=== PATIENT | male | born 1980 | race Two or more races ===

== ENCOUNTER 2016-12-30 19:33 | Inpatient (IN) | payer OTHER ==
[2016-12-30 20:23] VITALS: BMI 24.3
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
[2016-12-30] MEDS ORDERED: MENTHOL/PHENOL 1 EACH UD MM PRN (20:49)
[2016-12-30] MEDS ORDERED: LOPERAMIDE HCL 2 MG CAPSULE PO PRN (20:49)
[2016-12-30] MEDS ORDERED: guaiFENesin/D-METHORPHAN HB 10 ML UNIT-DOSE CUPS PO PRN (20:49)
[2016-12-30] MEDS ORDERED: diazePAM 5 MG TABLET PO ONE (20:49)
[2016-12-30] MEDS ORDERED: P-EPHED 60MG/TRIPROLIDI 2.5MG TABLET PO PRN (20:49)
[2016-12-30] MEDS ORDERED: IBUPROFEN 400 MG TABLET (FP) PO PRN (20:49)
[2016-12-30] MEDS ORDERED: MAG HYDROX/AL HYDROX/SIMETH 30 ML UNIT-DOSE CUP PO PRN (20:49)
[2016-12-30] MEDS ORDERED: hydrOXYzine PAMOATE 25 MG CAPSULE (FP) PO PRN (20:49)
[2016-12-30] MEDS ORDERED: NICOTINE POLACRILEX 2 MG GUM BUC PRN (20:49)
[2016-12-30] MEDS ORDERED: MAGNESIUM HYDROX 2400MG/30ML ORAL SUSPENSION 30 ML CUP PO PRN (20:49)
[2016-12-30] MEDS ORDERED: MAGNESIUM CITRATE 300 ML BOTTLE PO PRN (20:49)
[2016-12-30] MEDS ORDERED: ACETAMINOPHEN 325 MG TABLET (FP) PO PRN (20:49)
[2016-12-30] MEDS ORDERED: ALBUTEROL SO4 2.5/IPRATROPIUM 0.5 INH SOL 3 ML VIAL.NEB. NEB PRN (21:12)
[2016-12-30] MEDS: THIAMINE HCL 100 MG TABLET (FP) PO SCH (22:48)
[2016-12-30] MEDS: diazePAM 5 MG TABLET PO SCH (22:56)
[2016-12-30 23:10] LABS: URINE APPEARANCE SLCLOUDY; URINE BILIRUBIN NEGATIVE (NEGATIVE); URINE BLOOD NEGATIVE (NEGATIVE); URINE COLOR YELLOW; URINE GLUCOSE (UA) NEGATIVE (NEGATIVE); URINE KETONE TRACE (NEGATIVE); URINE NITRITE NEGATIVE (NEGATIVE); URINE PROTEIN NEGATIVE (NEGATIVE)
[2016-12-31] MEDS: diazePAM 5 MG TABLET PO SCH ×3 (05:39→22:11)
[2016-12-31] MEDS ORDERED: METHADONE HCL 10 MG TABLET PO SCH (10:00)
[2016-12-31] MEDS ORDERED: FLU VACCINE QUAD 60 MCG/0.5 ML (MDV 17-18) IM ONE (10:15)
[2016-12-31] MEDS: NICOTINE 14 MG/24 HOURS TOPICAL PATCH TD SCH (10:24)
[2016-12-31] MEDS: PRENATAL VITAMINS W/ FOLIC ACID TABLET (FP) PO SCH (10:24)
[2016-12-31 10:46] LABS: URINE LEUK ESTERASE Negative (NEGATIVE)
[2016-12-31 11:13] LABS: MCH 28.3 pg (25.7-33.7); MCHC 32.8 g/dl (32.0-35.9); MEAN CELL VOLUME 86.3 fl (80-96); MEAN PLT VOLUME 8.1 fl (7.5-11.1); PLATELET COUNT 264 K/MM3 (134-434); RDW 12.8 % (11.9-15.9); WHITE BLOOD COUNT 6.9 K/mm3 (4.0-10.0)
[2016-12-31 11:30] LABS: ALBUMIN 3.5 g/dl (3.4-5.0); ANION GAP 11 (8-16); CALCIUM 8.3 mg/dL (8.5-10.1); CO2 28 mmol/L (21-32); CREATININE 1.1 mg/dL (0.7-1.3); GLUCOSE,RANDOM 103 mg/dL (74-106); SGOT/AST 18 U/L (15-37); SGPT/ALT 26 U/L (12-78)
[2016-12-31 11:32] LABS: ALK PHOS 74 U/L (45-117); BILIRUBIN,TOTAL 0.5 mg/dL (0.2-1.0); TOT PROT 6.3 g/dl (6.4-8.2)
[2016-12-31] MEDS: diazePAM 5 MG TABLET PO PRN (12:40)
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
--- NOTE | 2016-12-31 16:01 | PN ---
S CIWA - CIWA Score Nausea/Vomitin Muscle Tremors: 4-Moderate,w/Arms Extend Anxiety: 4-Mod. Anxious/Guarded Agitation: 4-Moderately Restless Paroxysmal Sweats: 3 Orientation: 0-Oriented Tacttile Disturbances: 1-Very Mild Itch/Numbness Auditory Disturbances: 0-None Visual Disturbances: 0-None Headache: 1-Very Mild CIWA-Ar Total Score: 20 BHS Progress Note (SOAP) Subjective: Sweating, chills, tremor, interrupted sleep, anxious Objective: 12/31/16 15:58 Last Vital Signs Temp Pulse Resp BP Pulse Ox 97.9 F 63 18 126/72 12/31/16 14:02 12/31/16 14:02 12/31/16 14:02 12/31/16 14:02 Laboratory Tests 12/30/16 12/31/16 12/31/16 21:54 07:20 07:20 WBC 6.9 RBC 5.11 Hgb 14.5 Hct 44.1 MCV 86.3 MCH 28.3 MCHC 32.8 RDW 12.8 Plt Count 264 MPV 8.1 Sodium 144 Potassium 4.1 Chloride 105 Carbon Dioxide 28 Anion Gap 11 BUN 12 D Creatinine 1.1 Creat Clearance w eGFR > 60 Random Glucose 103 Calcium 8.3 L Total Bilirubin 0.5 D AST 18 ALT 26 Alkaline Phosphatase 74 Total Protein 6.3 L Albumin 3.5 Urine Color Yellow Urine Appearance Slcloudy Urine pH 6.0 Ur Specific [place] 1.028 Urine Protein Negative Urine Glucose (UA) Negative Urine Ketones Trace H Urine Blood Negative Urine Nitrite Negative Urine Bilirubin Negative Urine Urobilinogen 2.0 Ur Leukocyte Esterase Negative RPR Titer 12/31/16 07:20 WBC RBC Hgb Hct MCV MCH MCHC RDW Plt Count MPV Sodium Potassium Chloride Carbon Dioxide Anion Gap BUN Creatinine Creat Clearance w eGFR Random Glucose Calcium Total Bilirubin AST ALT Alkaline Phosphatase Total Protein Albumin Urine Color Urine Appearance Urine pH Ur Specific [place] Urine Protein Urine Glucose (UA) Urine Ketones Urine Blood Urine Nitrite Urine Bilirubin Urine Urobilinogen Ur Leukocyte Esterase RPR Titer Nonreactive Labs noted Assessment: 12/31/16 16:00 Withdrawal symptoms Plan: Continue detox Encouraged to drink lots of water
[2016-12-31] MEDS: THIAMINE HCL 100 MG TABLET (FP) PO SCH (22:11)
[2017-01-01] MEDS ORDERED: METHADONE HCL 10 MG TABLET ONE (04:09)
[2017-01-01] MEDS ORDERED: METHADONE HCL 40 MG DISPERSABLE TABLET ONE (04:10)
[2017-01-01] MEDS: diazePAM 5 MG TABLET PO PRN (05:31)
[2017-01-01] MEDS: METHADONE 40 MG, METHADONE 20 MG PO SCH (05:31)
[2017-01-01] MEDS: PRENATAL VITAMINS W/ FOLIC ACID TABLET (FP) PO SCH (10:20)
[2017-01-01] MEDS: diazePAM 5 MG TABLET PO SCH ×2 (10:20→22:14)
[2017-01-01] MEDS: NICOTINE 14 MG/24 HOURS TOPICAL PATCH TD SCH (10:21)
--- NOTE | 2017-01-01 11:09 | PN ---
[facility] CIWA - CIWA Score Nausea/Vomitin-No Nausea/No Vomiting Muscle Tremors: 4-Moderate,w/Arms Extend Anxiety: 4-Mod. Anxious/Guarded Agitation: 3 Paroxysmal Sweats: 1-Minimal Palms Moist Orientation: 0-Oriented Tacttile Disturbances: 3-Moderate Itch/Numb/Burn Auditory Disturbances: 0-None Visual Disturbances: 0-None Headache: 0-None Present CIWA-Ar Total Score: 15 BHS Progress Note (SOAP) Subjective: ANXIETY,SWEATS,FATIGUE. Objective: 01/01/17 11:08 Vital Signs Temperature 97.6 F 01/01/17 09:25 Pulse Rate 63 01/01/17 09:25 Respiratory Rate 18 01/01/17 09:25 Blood Pressure 109/75 01/01/17 09:25 O2 Sat by Pulse Oximetry (%) Laboratory Last Values WBC 6.9 K/mm3 (4.0-10.0) 12/31/16 07:20 RBC 5.11 M/mm3 (4.00-5.60) 12/31/16 07:20 Hgb 14.5 GM/dL (11.7-16.9) 12/31/16 07:20 Hct 44.1 % (35.4-49) 12/31/16 07:20 MCV 86.3 fl (80-96) 12/31/16 07:20 MCH 28.3 pg (25.7-33.7) 12/31/16 07:20 MCHC 32.8 g/dl (32.0-35.9) 12/31/16 07:20 RDW 12.8 % (11.9-15.9) 12/31/16 07:20 Plt Count 264 K/MM3 (134-434) 12/31/16 07:20 MPV 8.1 fl (7.5-11.1) 12/31/16 07:20 Sodium 144 mmol/L (136-145) 12/31/16 07:20 Potassium 4.1 mmol/L (3.5-5.1) 12/31/16 07:20 Chloride 105 mmol/L (98-107) 12/31/16 07:20 Carbon Dioxide 28 mmol/L (21-32) 12/31/16 07:20 Anion Gap 11 (8-16) 12/31/16 07:20 BUN 12 mg/dL (7-18) D 12/31/16 07:20 Creatinine 1.1 mg/dL (0.7-1.3) 12/31/16 07:20 Creat Clearance w eGFR > 60 (>60) 12/31/16 07:20 Random Glucose 103 mg/dL (74-106) 12/31/16 07:20 Calcium 8.3 mg/dL (8.5-10.1) L 12/31/16 07:20 Total Bilirubin 0.5 mg/dL (0.2-1.0) D 12/31/16 07:20 AST 18 U/L (15-37) 12/31/16 07:20 ALT 26 U/L (12-78) 12/31/16 07:20 Alkaline Phosphatase 74 U/L (45-117) 12/31/16 07:20 Total Protein 6.3 g/dl (6.4-8.2) L 12/31/16 07:20 Albumin 3.5 g/dl (3.4-5.0) 12/31/16 07:20 Urine Color Yellow 12/30/16 21:54 Urine Appearance Slcloudy 12/30/16 21:54 Urine pH 6.0 (5.0-8.0) 12/30/16 21:54 Ur Specific [place] 1.028 (1.001-1.035) 12/30/16 21:54 Urine Protein Negative (NEGATIVE) 12/30/16 21:54 Urine Glucose (UA) Negative (NEGATIVE) 12/30/16 21:54 Urine Ketones Trace (NEGATIVE) H 12/30/16 21:54 Urine Blood Negative (NEGATIVE) 12/30/16 21:54 Urine Nitrite Negative (NEGATIVE) 12/30/16 21:54 Urine Bilirubin Negative (NEGATIVE) 12/30/16 21:54 Urine Urobilinogen 2.0 mg/dL (0.2-1.0) 12/30/16 21:54 Ur Leukocyte Esterase Negative (NEGATIVE) 12/30/16 21:54 RPR Titer Nonreactive (NONREACTIVE) 12/31/16 07:20 Assessment: 01/01/17 11:08 WITHDRAWAL SX Plan: CONTINUE DETOX
[2017-01-01 11:20] LABS: HIV 1 & 2 AB NEGATIVE; HIV 1 AGp24 NEGATIVE
[2017-01-01] MEDS: THIAMINE HCL 100 MG TABLET (FP) PO SCH (22:14)
[2017-01-02] MEDS ORDERED: METHADONE HCL 10 MG TABLET ONE (04:00)
[2017-01-02] MEDS ORDERED: METHADONE HCL 40 MG DISPERSABLE TABLET ONE (04:01)
[2017-01-02] MEDS: METHADONE 40 MG, METHADONE 20 MG PO SCH (05:41)
[2017-01-02] MEDS: diazePAM 5 MG TABLET PO PRN (05:41)
--- NOTE | 2017-01-02 07:43 | EKG ---
Test Reason : Blood Pressure : / mmHG Vent. Rate : 056 BPM Atrial Rate : 056 BPM P-R Int : 162 ms QRS Dur : 096 ms QT Int : 420 ms P-R-T Axes : 051 -52 049 degrees QTc Int : 405 ms SINUS BRADYCARDIA LEFT ANTERIOR FASCICULAR BLOCK SEPTAL INFARCT (CITED ON OR BEFORE 30-DEC-2016) ABNORMAL ECG WHEN COMPARED WITH ECG OF 30-DEC-2016 21:43, NO SIGNIFICANT CHANGE WAS FOUND Confirmed by JIM ENCINAS MD ([id number]) on 01/02/2017 7:43:22 AM Referred By: Confirmed By:JIM ENCINAS MD
[2017-01-02 09:31] VITALS: BP 115/77; PULSE 53; TEMP 96.5
[2017-01-02] MEDS: diazePAM 5 MG TABLET PO SCH (10:04)
[2017-01-02] MEDS: PRENATAL VITAMINS W/ FOLIC ACID TABLET (FP) PO SCH (10:04)
[2017-01-02] MEDS: NICOTINE 14 MG/24 HOURS TOPICAL PATCH TD SCH (10:04)
--- NOTE | 2017-01-02 11:12 | DS ---
[facility] Detox Discharge Summary Admission Date: 12/30/16 Discharge Date: 01/02/17 - History Present History: Alcohol Dependence, Cannabis Dependence, Cocaine Dependence, MMTP Additional Comments: Patient wishes to return to MMTP, advised of risks of not completing detox as ordered. Nursing informed patient is to sign out AMA, medically stable at this time, no suicidal ideation Pertinent Past History: anxiety, depression, insomnia - Physical Exam Results Vital Signs: Vital Signs Temperature 96.5 F L 01/02/17 09:30 Pulse Rate 53 L 01/02/17 09:30 Respiratory Rate 18 01/02/17 09:30 Blood Pressure 115/77 01/02/17 09:30 O2 Sat by Pulse Oximetry (%) Laboratory Tests 12/30/16 12/31/16 12/31/16 21:54 06:00 07:20 WBC 6.9 RBC 5.11 Hgb 14.5 Hct 44.1 MCV 86.3 MCH 28.3 MCHC 32.8 RDW 12.8 Plt Count 264 MPV 8.1 Sodium Potassium Chloride Carbon Dioxide Anion Gap BUN Creatinine Creat Clearance w eGFR Random Glucose Calcium Total Bilirubin AST ALT Alkaline Phosphatase Total Protein Albumin Urine Color Yellow Urine Appearance Slcloudy Urine pH 6.0 Ur Specific [place] 1.028 Urine Protein Negative Urine Glucose (UA) Negative Urine Ketones Trace H Urine Blood Negative Urine Nitrite Negative Urine Bilirubin Negative Urine Urobilinogen 2.0 Ur Leukocyte Esterase Negative RPR Titer HIV 1&2 Antibody Screen Negative HIV P24 Antigen Negative 12/31/16 12/31/16 07:20 07:20 WBC RBC Hgb Hct MCV MCH MCHC RDW Plt Count MPV Sodium 144 Potassium 4.1 Chloride 105 Carbon Dioxide 28 Anion Gap 11 BUN 12 D Creatinine 1.1 Creat Clearance w eGFR > 60 Random Glucose 103 Calcium 8.3 L Total Bilirubin 0.5 D AST 18 ALT 26 Alkaline Phosphatase 74 Total Protein 6.3 L Albumin 3.5 Urine Color Urine Appearance Urine pH Ur Specific [place] Urine Protein Urine Glucose (UA) Urine Ketones Urine Blood Urine Nitrite Urine Bilirubin Urine Urobilinogen Ur Leukocyte Esterase RPR Titer Nonreactive HIV 1&2 Antibody Screen HIV P24 Antigen Pertinent Admission Physical Exam Findings: withdrawal sx - Treatment Hospital Course: Detox Protocol Followed Patient has Accepted a Rehab Referral to: no, will return to MMTP - Medication Discharge Medications: Ambulatory Orders Albuterol Sulfate Inhaler - [Ventolin HFA Inhaler -] 2 inh PO Q6H #1 inhaler 04/13 Methadone [Dolophine -] 60 mg PO DAILY@0600 tablet MDD 60mg 01/02/17 - Diagnosis (1) Alcohol dependence with uncomplicated withdrawal Current Visit: Yes Status: Acute (2) Cannabis dependence Current Visit: Yes Status: Acute (3) Cocaine dependence Current Visit: Yes Status: Acute Qualifiers: Substance use status: uncomplicated Qualified Code(s): F14.20 - Cocaine dependence, uncomplicated; F14.20 - Cocaine dependence, uncomplicated; F14.20 - Cocaine dependence, uncomplicated (4) Opioid dependence on agonist therapy Current Visit: Yes Status: Acute (5) Asthma Current Visit: Yes Status: Chronic (6) Alcohol-induced mood disorder Current Visit: No Status: Acute - AMA Did Patient Leave Against Medical Advice: Yes
[2017-01-03] MEDS ORDERED: diazePAM 5 MG TABLET PO SCH (10:00)
== END 2017-01-02 11:25 | disposition left against medical advice (07) | DRG 770 ==
LOC: YASAS 19:33 → Y3N 21:00
PROVIDERS: ADMIT Internal Medicine; ATTEND Internal Medicine
PROC: HZ2ZZZZ Detoxification Services for Substance Abuse Treatment (ICD-10-PCS; principal; 2016-12-30)
DX: F11.20 Opioid dependence, uncomplicated (principal); F10.230 Alcohol dependence with withdrawal, uncomplicated; F10.24 Alcohol dependence with alcohol-induced mood disorder; F14.20 Cocaine dependence, uncomplicated; F12.20 Cannabis dependence, uncomplicated; F17.213 Nicotine dependence, cigarettes, with withdrawal; J45.909 Unspecified asthma, uncomplicated; Z91.5 Personal history of self-harm
CPT/HCPCS: 36415; 80053; 81003; 85027; 86593; 87389; 90688; 93005; 93010; G0008

== ENCOUNTER 2017-01-24 08:17 | Inpatient (IN) | payer OTHER ==
[2017-01-24 10:51] VITALS: BMI 23.1
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
[2017-01-24] MEDS ORDERED: NICOTINE POLACRILEX 2 MG GUM BC PRN (12:49)
[2017-01-24] MEDS ORDERED: LOPERAMIDE HCL 2 MG CAPSULE PO PRN (12:49)
[2017-01-24] MEDS ORDERED: MAGNESIUM HYDROX 2400MG/30ML ORAL SUSPENSION 30 ML CUP PO PRN (12:49)
[2017-01-24] MEDS ORDERED: hydrOXYzine PAMOATE 50 MG CAPSULE (FP) PO PRN (12:49)
[2017-01-24] MEDS ORDERED: IBUPROFEN 400 MG TABLET (FP) PO PRN (12:49)
[2017-01-24] MEDS ORDERED: P-EPHED 60MG/TRIPROLIDI 2.5MG TABLET PO PRN (12:49)
[2017-01-24] MEDS ORDERED: guaiFENesin/D-METHORPHAN HB 10 ML UNIT-DOSE CUPS PO PRN (12:49)
[2017-01-24] MEDS ORDERED: MENTHOL/PHENOL 1 EACH UD MM PRN (12:49)
[2017-01-24] MEDS ORDERED: MAGNESIUM CITRATE 300 ML BOTTLE PO PRN (12:49)
[2017-01-24] MEDS ORDERED: MAG HYDROX/AL HYDROX/SIMETH 30 ML UNIT-DOSE CUP PO PRN (12:49)
[2017-01-24] MEDS ORDERED: ACETAMINOPHEN 325 MG TABLET (FP) PO PRN (12:49)
[2017-01-24] MEDS ORDERED: diazePAM 5 MG TABLET PO ONE (13:30)
[2017-01-24] MEDS: diazePAM 5 MG TABLET PO PRN ×2 (15:24→22:09)
[2017-01-24] MEDS: NICOTINE 14 MG/24 HOURS TOPICAL PATCH TD SCH (15:24)
[2017-01-24] MEDS: diazePAM 5 MG TABLET PO SCH ×2 (15:25→22:09)
--- NOTE | 2017-01-24 17:09 | PN ---
S Progress Note Note: Pt. approached at bedside for psychiatric consultation. Pt. refused to be seen at this time.
[2017-01-24] MEDS: THIAMINE HCL 100 MG TABLET (FP) PO SCH (22:09)
[2017-01-24 22:35] LABS: MCH 29.3 pg (25.7-33.7); MCHC 33.8 g/dl (32.0-35.9); MEAN CELL VOLUME 86.8 fl (80-96); MEAN PLT VOLUME 8.4 fl (7.5-11.1); PLATELET COUNT 280 K/MM3 (134-434); RDW 12.8 % (11.9-15.9); WHITE BLOOD COUNT 7.3 K/mm3 (4.0-10.0)
[2017-01-24 22:40] LABS: ALBUMIN 3.7 g/dl (3.4-5.0); ANION GAP 7 (8-16); CALCIUM 8.9 mg/dL (8.5-10.1); CO2 29 mmol/L (21-32); GLUCOSE,RANDOM 85 mg/dL (74-106); SGOT/AST 15 U/L (15-37); SGPT/ALT 27 U/L (12-78)
[2017-01-24 22:42] LABS: ALK PHOS 65 U/L (45-117); BILIRUBIN,TOTAL 0.8 mg/dL (0.2-1.0); CREATININE 1.1 mg/dL (0.7-1.3); TOT PROT 6.8 g/dl (6.4-8.2)
[2017-01-24 23:00] LABS: URINE APPEARANCE CLEAR; URINE BILIRUBIN NEGATIVE (NEGATIVE); URINE BLOOD NEGATIVE (NEGATIVE); URINE COLOR YELLOW; URINE GLUCOSE (UA) NEGATIVE (NEGATIVE); URINE KETONE TRACE (NEGATIVE); URINE NITRITE NEGATIVE (NEGATIVE); URINE PROTEIN NEGATIVE (NEGATIVE)
[2017-01-25] MEDS ORDERED: METHADONE HCL 40 MG DISPERSABLE TABLET ONE (05:24)
[2017-01-25] MEDS ORDERED: METHADONE HCL 10 MG TABLET ONE (05:25)
[2017-01-25] MEDS ORDERED: METHADONE HCL 40 MG DISPERSABLE TABLET PO SCH (06:00)
[2017-01-25] MEDS: diazePAM 5 MG TABLET PO SCH ×3 (06:02→22:43)
[2017-01-25] MEDS: METHADONE 40 MG, METHADONE 20 MG PO SCH (06:02)
--- NOTE | 2017-01-25 07:42 | CONSULT ---
[facility] Psychiatric Consult - Data Date of interview: 01/25/17 Admission source: [facility] Identifying data: This is 36 years old male with psychiatric hospitalization history iontoxicatewd with: Alcohol, Cannabis, K2, Crack, Nicotine,, Opioids Substance Abuse History: - Smoking Cessation. Smoking history: Current every day smoker. Have you smoked in the past 12 months: Yes. Aproximately how many cigarettes per day: 10. Cigars Per Day: 0. Hx Chewing Tobacco Use: No. Initiated information on smoking cessation: Yes. 'Breaking Loose' booklet given : 01/24/17. - Substance & Tx. History. Hx Alcohol Use: Yes (COGNAC/TONYA/BEER ). Hx Substance Use: Yes (K2/MARIJUANA/CRACK/HEROIN). Substance Use Type: Alcohol, Cocaine, Heroin, Marijuana. Hx Substance Use Treatment: Yes (LAST TX AT [facility]). - Substances Abused. Crack. Route: Smoking. Frequency: Daily. Amount used: $50. Age of first use: 22. Date of Last Use: 01/23/17. Heroin. Route: Inhalation. Frequency: Daily. Amount used: 2 bags. Age of first use: 31. Date of Last Use: 01/23/17. Alcohol-cognac/tonya/beer. Route: Oral. Frequency: Daily. Amount used: 2 pts./2-6 pks. Age of first use : 13. Date of Last Use: 01/23/17. K2. Route: Smoking. Frequency: 3-6 times per week. Amount used: $10. Age of first use: 33. Date of Last Use: . Marijuana. Route: Smoking. Frequency: 3-6 times per week. Amount used: $10. Age of first use: 17. Date of Last Use: 01/23/17 Medical History: Asthma, MMTP 60mg per day Psychiatric History: Patient reports anxiety and insomnia, reports taking prior to admission: Benadryl 50mg po qhs Physical/Sexual Abuse/Trauma History: Denies Additional Comment: Benadryl 50mg po qhs Mental Status Exam - Mental Status Exam Alert and Oriented to: Person Cognitive Function: Fair Patient Appearance: Unkempt Mood: Sad Affect: Mood Congruent Patient Behavior: Cooperative Speech Pattern: Appropriate Voice Loudness: Mildly Soft/Quiet Thought Process: Circumstantial Thought Disorder: Being Controlled Hallucinations: Denies Suicidal Ideation: Denies Homicidal Ideation: Denies Insight/Judgement: Fair Sleep: Difficulty falling asleep Appetite: Weight loss Muscle strength/Tone: Mild Hypotonicity Gait/Station: Shuffling Additional Comments: Benadryl 50mg po qhs Psychiatric Findings - Problem List ([place] 1, 2,3) (1) Alcohol dependence with uncomplicated withdrawal Current Visit: Yes Status: Acute (2) Cannabis dependence Current Visit: Yes Status: Acute Comment: USES K2 AND MARIJUANA (3) Cocaine dependence Current Visit: Yes Status: Acute Qualifiers: Substance use status: uncomplicated Qualified Code(s): F14.20 - Cocaine dependence, uncomplicated (4) Drug withdrawal seizure Current Visit: Yes Status: Acute Qualifiers: Complication of substance-induced condition: with unspecified complication Qualified Code(s): F19.239 - Other psychoactive substance dependence with withdrawal, unspecified; R56.9 - Unspecified convulsions; R56.9 - Unspecified convulsions; R56.9 - Unspecified convulsions; R56.9 - Unspecified convulsions Comment: HX OF DRUG-RELATED SEIZURES. (5) Nicotine dependence Current Visit: Yes Status: Acute Qualifiers: Nicotine product type: cigarettes Substance use status: in withdrawal Qualified Code(s): F17.213 - Nicotine dependence, cigarettes, with withdrawal (6) Methadone maintenance therapy patient Current Visit: Yes Status: Chronic (7) Weight decreased Current Visit: No Status: Active (8) Alcohol-induced mood disorder Current Visit: No Status: Acute (9) Opioid dependence on agonist therapy Current Visit: No Status: Acute (10) Opioid dependence with withdrawal Current Visit: No Status: Acute (11) Anxiety and depression Current Visit: No Status: Chronic (12) Drug-induced mood disorder Current Visit: No Status: Chronic (13) Substance-induced sleep disorder Current Visit: No Status: Chronic - Initial Treatment Plan Initial Treatment Plan: Benadryl 50mg po qhs
[2017-01-25] MEDS ORDERED: diphenhydrAMINE HCL 25 MG CAPSULE (FP) PO PRN (08:17)
[2017-01-25] MEDS ORDERED: IBUPROFEN 600 MG TABLET (FP) PO PRN (09:18)
[2017-01-25] MEDS: PRENATAL VITAMINS W/ FOLIC ACID TABLET (FP) PO SCH (10:00)
[2017-01-25] MEDS ORDERED: diphenhydrAMINE HCL 50 MG CAPSULE PO SCH (10:00)
[2017-01-25] MEDS: NICOTINE 14 MG/24 HOURS TOPICAL PATCH TD SCH (10:00)
--- NOTE | 2017-01-25 11:30 | PN ---
S CIWA - CIWA Score Nausea/Vomitin-No Nausea/No Vomiting Muscle Tremors: 4-Moderate,w/Arms Extend Anxiety: 3 Agitation: 3 Paroxysmal Sweats: 3 Orientation: 0-Oriented Tacttile Disturbances: 0-None Auditory Disturbances: 0-None Visual Disturbances: 0-None Headache: 0-None Present CIWA-Ar Total Score: 13 BHS Progress Note (SOAP) Subjective: interrupted sleep agitation anxiety sweats irritable Objective: 01/25/17 11:29 Vital Signs Temperature 98.4 F 01/25/17 09:21 Pulse Rate 67 01/25/17 09:21 Respiratory Rate 18 01/25/17 09:21 Blood Pressure 142/69 01/25/17 09:21 O2 Sat by Pulse Oximetry (%) Laboratory Tests 01/24/17 01/24/17 01/24/17 13:20 13:20 13:20 WBC 7.3 RBC 4.65 Hgb 13.7 Hct 40.4 MCV 86.8 MCH 29.3 MCHC 33.8 RDW 12.8 Plt Count 280 MPV 8.4 Sodium 139 Potassium 4.3 Chloride 103 Carbon Dioxide 29 Anion Gap 7 L BUN 14 Creatinine 1.1 Creat Clearance w eGFR > 60 Random Glucose 85 Calcium 8.9 Total Bilirubin 0.8 D AST 15 ALT 27 Alkaline Phosphatase 65 Total Protein 6.8 Albumin 3.7 Urine Color Urine Appearance Urine pH Ur Specific [place] Urine Protein Urine Glucose (UA) Urine Ketones Urine Blood Urine Nitrite Urine Bilirubin Urine Urobilinogen RPR Titer Nonreactive 01/24/17 15:50 WBC RBC Hgb Hct MCV MCH MCHC RDW Plt Count MPV Sodium Potassium Chloride Carbon Dioxide Anion Gap BUN Creatinine Creat Clearance w eGFR Random Glucose Calcium Total Bilirubin AST ALT Alkaline Phosphatase Total Protein Albumin Urine Color Yellow Urine Appearance Clear Urine pH 6.0 Ur Specific [place] 1.027 Urine Protein Negative Urine Glucose (UA) Negative Urine Ketones Trace H Urine Blood Negative Urine Nitrite Negative Urine Bilirubin Negative Urine Urobilinogen 2.0 RPR Titer [id number] ambulating no acute distress Assessment: 01/25/17 11:30 withdrawal sx Plan: continue detox increase fluids
[2017-01-25 11:37] LABS: URINE LEUK ESTERASE Negative (NEGATIVE)
--- NOTE | 2017-01-25 13:09 | EKG ---
Test Reason : Blood Pressure : / mmHG Vent. Rate : 054 BPM Atrial Rate : 054 BPM P-R Int : 156 ms QRS Dur : 098 ms QT Int : 448 ms P-R-T Axes : -04 -50 035 degrees QTc Int : 424 ms SINUS BRADYCARDIA LEFT ANTERIOR FASCICULAR BLOCK ABNORMAL ECG WHEN COMPARED WITH ECG OF 30-DEC-2016 21:44, NO SIGNIFICANT CHANGE WAS FOUND Confirmed by BELINDA ROBLES, EUGENIA ([id number]) on 01/25/2017 1:08:55 PM Referred By: ARETHA RAIN Confirmed By:EUGENIA TREVINO MD
[2017-01-25] MEDS ORDERED: diphenhydrAMINE HCL 25 MG CAPSULE (FP) PO ONE (21:44)
[2017-01-25] MEDS: THIAMINE HCL 100 MG TABLET (FP) PO SCH (22:43)
[2017-01-25] MEDS: diphenhydrAMINE HCL 50 MG CAPSULE PO SCH (22:43)
[2017-01-26] MEDS ORDERED: METHADONE HCL 40 MG DISPERSABLE TABLET ONE (04:00)
[2017-01-26] MEDS ORDERED: METHADONE HCL 10 MG TABLET ONE (04:00)
[2017-01-26] MEDS: METHADONE 40 MG, METHADONE 20 MG PO SCH (05:52)
--- NOTE | 2017-01-26 09:49 | PN ---
S CIWA - CIWA Score Nausea/Vomitin-No Nausea/No Vomiting Muscle Tremors: 3 Anxiety: 4-Mod. Anxious/Guarded Agitation: 3 Paroxysmal Sweats: 3 Orientation: 0-Oriented Tacttile Disturbances: 0-None Auditory Disturbances: 0-None Visual Disturbances: 0-None Headache: 0-None Present CIWA-Ar Total Score: 13 BHS Progress Note (SOAP) Subjective: Sweating,interrupted sleep,restless,tremors,anxiety. Objective: 01/26/17 09:48 Vital Signs - 8 hr 01/26/17 01/26/17 03:30 06:26 Temperature 97.5 F L Pulse Rate 50 L Respiratory 18 16 Rate Blood Pressure 101/56 Laboratory Tests 01/24/17 01/24/17 01/24/17 13:20 13:20 13:20 WBC 7.3 RBC 4.65 Hgb 13.7 Hct 40.4 MCV 86.8 MCH 29.3 MCHC 33.8 RDW 12.8 Plt Count 280 MPV 8.4 Sodium 139 Potassium 4.3 Chloride 103 Carbon Dioxide 29 Anion Gap 7 L BUN 14 Creatinine 1.1 Creat Clearance w eGFR > 60 Random Glucose 85 Calcium 8.9 Total Bilirubin 0.8 D AST 15 ALT 27 Alkaline Phosphatase 65 Total Protein 6.8 Albumin 3.7 Urine Color Urine Appearance Urine pH Ur Specific [place] Urine Protein Urine Glucose (UA) Urine Ketones Urine Blood Urine Nitrite Urine Bilirubin Urine Urobilinogen Ur Leukocyte Esterase RPR Titer Nonreactive 01/24/17 15:50 WBC RBC Hgb Hct MCV MCH MCHC RDW Plt Count MPV Sodium Potassium Chloride Carbon Dioxide Anion Gap BUN Creatinine Creat Clearance w eGFR Random Glucose Calcium Total Bilirubin AST ALT Alkaline Phosphatase Total Protein Albumin Urine Color Yellow Urine Appearance Clear Urine pH 6.0 Ur Specific [place] 1.027 Urine Protein Negative Urine Glucose (UA) Negative Urine Ketones Trace H Urine Blood Negative Urine Nitrite Negative Urine Bilirubin Negative Urine Urobilinogen 2.0 Ur Leukocyte Esterase Negative RPR Titer labs noted Assessment: 01/26/17 09:49 Withdrawal sx. Plan: Continue detox
[2017-01-26] MEDS: diazePAM 5 MG TABLET PO SCH ×2 (10:15→22:20)
[2017-01-26] MEDS: PRENATAL VITAMINS W/ FOLIC ACID TABLET (FP) PO SCH (10:15)
[2017-01-26] MEDS: NICOTINE 14 MG/24 HOURS TOPICAL PATCH TD SCH (10:16)
[2017-01-26] MEDS ORDERED: ALBUTEROL SO4 18 GM HFA INHALER IH PRN (19:06)
[2017-01-26] MEDS: THIAMINE HCL 100 MG TABLET (FP) PO SCH (22:20)
[2017-01-26] MEDS: diphenhydrAMINE HCL 50 MG CAPSULE PO SCH (22:22)
[2017-01-27] MEDS ORDERED: METHADONE HCL 10 MG TABLET ONE (04:14)
[2017-01-27] MEDS ORDERED: METHADONE HCL 40 MG DISPERSABLE TABLET ONE (04:14)
[2017-01-27] MEDS: METHADONE 40 MG, METHADONE 20 MG PO SCH (06:03)
[2017-01-27] MEDS: diazePAM 5 MG TABLET PO PRN (06:06)
--- NOTE | 2017-01-27 08:46 | PN ---
BHS Progress Note (SOAP) Subjective: Sweating,interrupted sleep,restless Objective: 01/27/17 08:44 Vital Signs - 8 hr 01/27/17 01/27/17 03:30 06:00 Temperature 98.1 F Pulse Rate 49 L Respiratory 18 18 Rate Blood Pressure 97/64 Laboratory Last Values WBC 7.3 K/mm3 (4.0-10.0) 01/24/17 13:20 RBC 4.65 M/mm3 (4.00-5.60) 01/24/17 13:20 Hgb 13.7 GM/dL (11.7-16.9) 01/24/17 13:20 Hct 40.4 % (35.4-49) 01/24/17 13:20 MCV 86.8 fl (80-96) 01/24/17 13:20 MCH 29.3 pg (25.7-33.7) 01/24/17 13:20 MCHC 33.8 g/dl (32.0-35.9) 01/24/17 13:20 RDW 12.8 % (11.9-15.9) 01/24/17 13:20 Plt Count 280 K/MM3 (134-434) 01/24/17 13:20 MPV 8.4 fl (7.5-11.1) 01/24/17 13:20 Sodium 139 mmol/L (136-145) 01/24/17 13:20 Potassium 4.3 mmol/L (3.5-5.1) 01/24/17 13:20 Chloride 103 mmol/L (98-107) 01/24/17 13:20 Carbon Dioxide 29 mmol/L (21-32) 01/24/17 13:20 Anion Gap 7 (8-16) L 01/24/17 13:20 BUN 14 mg/dL (7-18) 01/24/17 13:20 Creatinine 1.1 mg/dL (0.7-1.3) 01/24/17 13:20 Creat Clearance w eGFR > 60 (>60) 01/24/17 13:20 Random Glucose 85 mg/dL (74-106) 01/24/17 13:20 Calcium 8.9 mg/dL (8.5-10.1) 01/24/17 13:20 Total Bilirubin 0.8 mg/dL (0.2-1.0) D 01/24/17 13:20 AST 15 U/L (15-37) 01/24/17 13:20 ALT 27 U/L (12-78) 01/24/17 13:20 Alkaline Phosphatase 65 U/L (45-117) 01/24/17 13:20 Total Protein 6.8 g/dl (6.4-8.2) 01/24/17 13:20 Albumin 3.7 g/dl (3.4-5.0) 01/24/17 13:20 Urine Color Yellow 01/24/17 15:50 Urine Appearance Clear 01/24/17 15:50 Urine pH 6.0 (5.0-8.0) 01/24/17 15:50 Ur Specific [place] 1.027 (1.001-1.035) 01/24/17 15:50 Urine Protein Negative (NEGATIVE) 01/24/17 15:50 Urine Glucose (UA) Negative (NEGATIVE) 01/24/17 15:50 Urine Ketones Trace (NEGATIVE) H 01/24/17 15:50 Urine Blood Negative (NEGATIVE) 01/24/17 15:50 Urine Nitrite Negative (NEGATIVE) 01/24/17 15:50 Urine Bilirubin Negative (NEGATIVE) 01/24/17 15:50 Urine Urobilinogen 2.0 mg/dL (0.2-1.0) 01/24/17 15:50 Ur Leukocyte Esterase Negative (NEGATIVE) 01/24/17 15:50 RPR Titer Nonreactive (NONREACTIVE) 01/24/17 13:20 labs noted Assessment: 01/27/17 08:45 Withdrawal sx. Plan: continue detox
[2017-01-27] MEDS: PRENATAL VITAMINS W/ FOLIC ACID TABLET (FP) PO SCH (10:05)
[2017-01-27] MEDS: diazePAM 5 MG TABLET PO SCH ×2 (10:06→22:22)
[2017-01-27] MEDS: NICOTINE 14 MG/24 HOURS TOPICAL PATCH TD SCH (10:06)
[2017-01-27] MEDS ORDERED: BACITRACIN 0.9 GM PACKET ONE (14:59)
[2017-01-27] MEDS: BACITRACIN 0.9 GM PACKET TP SCH ×2 (15:00→22:22)
[2017-01-27] MEDS: diphenhydrAMINE HCL 50 MG CAPSULE PO SCH (22:22)
[2017-01-27] MEDS: THIAMINE HCL 100 MG TABLET (FP) PO SCH (22:22)
[2017-01-28] MEDS ORDERED: METHADONE HCL 10 MG TABLET ONE (02:49)
[2017-01-28] MEDS ORDERED: METHADONE HCL 40 MG DISPERSABLE TABLET ONE (02:49)
[2017-01-28] MEDS: METHADONE 40 MG, METHADONE 20 MG PO SCH (05:11)
[2017-01-28] MEDS ORDERED: BACITRACIN 0.9 GM PACKET ONE (08:19)
[2017-01-28 09:43] VITALS: BP 105/71; PULSE 52; TEMP 96.4
[2017-01-28] MEDS ORDERED: diazePAM 5 MG TABLET PO SCH (10:00)
--- NOTE | 2017-01-28 10:02 | DS ---
[facility] Detox Discharge Summary Admission Date: 01/24/17 Discharge Date: 01/28/17 - History Present History: Alcohol Dependence, Cannabis Dependence, Cocaine Dependence, MMTP Pertinent Past History: Withdrawal sx - Physical Exam Results Vital Signs: Vital Signs Temperature 96.4 F L 01/28/17 09:43 Pulse Rate 52 L 01/28/17 09:43 Respiratory Rate 18 01/28/17 09:43 Blood Pressure 105/71 01/28/17 09:43 O2 Sat by Pulse Oximetry (%) Pertinent Admission Physical Exam Findings: Withdrawal sx Laboratory Last Values WBC 7.3 K/mm3 (4.0-10.0) 01/24/17 13:20 RBC 4.65 M/mm3 (4.00-5.60) 01/24/17 13:20 Hgb 13.7 GM/dL (11.7-16.9) 01/24/17 13:20 Hct 40.4 % (35.4-49) 01/24/17 13:20 MCV 86.8 fl (80-96) 01/24/17 13:20 MCH 29.3 pg (25.7-33.7) 01/24/17 13:20 MCHC 33.8 g/dl (32.0-35.9) 01/24/17 13:20 RDW 12.8 % (11.9-15.9) 01/24/17 13:20 Plt Count 280 K/MM3 (134-434) 01/24/17 13:20 MPV 8.4 fl (7.5-11.1) 01/24/17 13:20 Sodium 139 mmol/L (136-145) 01/24/17 13:20 Potassium 4.3 mmol/L (3.5-5.1) 01/24/17 13:20 Chloride 103 mmol/L (98-107) 01/24/17 13:20 Carbon Dioxide 29 mmol/L (21-32) 01/24/17 13:20 Anion Gap 7 (8-16) L 01/24/17 13:20 BUN 14 mg/dL (7-18) 01/24/17 13:20 Creatinine 1.1 mg/dL (0.7-1.3) 01/24/17 13:20 Creat Clearance w eGFR > 60 (>60) 01/24/17 13:20 Random Glucose 85 mg/dL (74-106) 01/24/17 13:20 Calcium 8.9 mg/dL (8.5-10.1) 01/24/17 13:20 Total Bilirubin 0.8 mg/dL (0.2-1.0) D 01/24/17 13:20 AST 15 U/L (15-37) 01/24/17 13:20 ALT 27 U/L (12-78) 01/24/17 13:20 Alkaline Phosphatase 65 U/L (45-117) 01/24/17 13:20 Total Protein 6.8 g/dl (6.4-8.2) 01/24/17 13:20 Albumin 3.7 g/dl (3.4-5.0) 01/24/17 13:20 Urine Color Yellow 01/24/17 15:50 Urine Appearance Clear 01/24/17 15:50 Urine pH 6.0 (5.0-8.0) 01/24/17 15:50 Ur Specific [place] 1.027 (1.001-1.035) 01/24/17 15:50 Urine Protein Negative (NEGATIVE) 01/24/17 15:50 Urine Glucose (UA) Negative (NEGATIVE) 01/24/17 15:50 Urine Ketones Trace (NEGATIVE) H 01/24/17 15:50 Urine Blood Negative (NEGATIVE) 01/24/17 15:50 Urine Nitrite Negative (NEGATIVE) 01/24/17 15:50 Urine Bilirubin Negative (NEGATIVE) 01/24/17 15:50 Urine Urobilinogen 2.0 mg/dL (0.2-1.0) 01/24/17 15:50 Ur Leukocyte Esterase Negative (NEGATIVE) 01/24/17 15:50 RPR Titer Nonreactive (NONREACTIVE) 01/24/17 13:20 labs noted - Treatment Hospital Course: Detox Protocol Followed, Detoxed Safely, Responded well, Discharged Condition Good, Rehab Referral Accepted Patient has Accepted a Rehab Referral to: [facility] - Medication Discharge Medications: Ambulatory Orders Albuterol Sulfate Inhaler - [Ventolin HFA Inhaler -] 2 inh PO Q4H PRN 01/24/17 Methadone [Dolophine -] 60 mg PO DAILY 01/24/17 Diphenhydramine HCl [Benadryl Capsule -] 50 mg PO HS #30 capsule 01/25/17 - Diagnosis (1) Alcohol dependence with uncomplicated withdrawal Current Visit: Yes Status: Acute (2) Asthma Current Visit: Yes Status: Chronic (3) Opioid dependence on agonist therapy Current Visit: Yes Status: Acute - AMA Did Patient Leave Against Medical Advice: No
[2017-01-28] MEDS: BACITRACIN 0.9 GM PACKET TP SCH (10:04)
[2017-01-28] MEDS: NICOTINE 14 MG/24 HOURS TOPICAL PATCH TD SCH (10:04)
[2017-01-28] MEDS: PRENATAL VITAMINS W/ FOLIC ACID TABLET (FP) PO SCH (10:04)
== END 2017-01-28 11:09 | disposition other institution (70) | DRG 773 ==
LOC: YASAS 08:17 → Y6N 13:01
PROVIDERS: ADMIT Internal Medicine; ATTEND Internal Medicine
PROC: HZ2ZZZZ Detoxification Services for Substance Abuse Treatment (ICD-10-PCS; principal; 2017-01-24)
DX: F11.23 Opioid dependence with withdrawal (principal); F10.230 Alcohol dependence with withdrawal, uncomplicated; F14.20 Cocaine dependence, uncomplicated; F12.20 Cannabis dependence, uncomplicated; F19.239 Other psychoactive substance dependence with withdrawal, unspecified; R56.9 Unspecified convulsions; F19.282 Other psychoactive substance dependence with psychoactive substance-induced sleep disorder; F19.24 Other psychoactive substance dependence with psychoactive substance-induced mood disorder; F41.8 Other specified anxiety disorders; J45.909 Unspecified asthma, uncomplicated; F10.24 Alcohol dependence with alcohol-induced mood disorder; R63.4 Abnormal weight loss; Z68.23 Body mass index [BMI] 23.0-23.9, adult; Z91.5 Personal history of self-harm
CPT/HCPCS: 36415; 80053; 81003; 85027; 86593; 93005; 93010

== ENCOUNTER 2017-01-28 11:28 | Inpatient (IN) | payer OTHER ==
[2017-01-28 12:12] VITALS: BMI 24.6
[2017-01-28] MEDS ORDERED: LOPERAMIDE HCL 2 MG CAPSULE PO PRN (12:50)
[2017-01-28] MEDS ORDERED: IBUPROFEN 400 MG TABLET (FP) PO PRN (12:50)
[2017-01-28] MEDS ORDERED: MAGNESIUM CITRATE 300 ML BOTTLE PO PRN (12:50)
[2017-01-28] MEDS ORDERED: MAG HYDROX/AL HYDROX/SIMETH 30 ML UNIT-DOSE CUP PO PRN (12:50)
[2017-01-28] MEDS ORDERED: P-EPHED 60MG/TRIPROLIDI 2.5MG TABLET PO PRN (12:50)
[2017-01-28] MEDS ORDERED: MAGNESIUM HYDROX 2400MG/30ML ORAL SUSPENSION 30 ML CUP PO PRN (12:50)
[2017-01-28] MEDS ORDERED: guaiFENesin/D-METHORPHAN HB 10 ML UNIT-DOSE CUPS PO PRN (12:50)
[2017-01-28] MEDS ORDERED: MENTHOL/PHENOL 1 EACH UD MM PRN (12:50)
[2017-01-28] MEDS ORDERED: ALBUTEROL SO4 18 GM HFA INHALER IH PRN (12:52)
--- NOTE | 2017-01-28 12:56 | HP ---
[facility] Rehab Assess/Revision - Admission History Admitted to Rehab from: [facility] Date of Admission to Rehab: 01/28/2017 - Vital signs Vital Signs: Vital Signs Period Temp Pulse Resp BP Sys/Egan Pulse Ox Last 24 Hr 98.3 F-98.3 F 53-53 20-20 114-114/66-66 - Findings Detox History & Physical reviewed: Yes Concur with findings: Yes
[2017-01-28] MEDS: THIAMINE HCL 100 MG TABLET (FP) PO SCH (22:28)
[2017-01-29] MEDS ORDERED: METHADONE HCL 40 MG DISPERSABLE TABLET ONE (04:22)
[2017-01-29] MEDS ORDERED: METHADONE HCL 10 MG TABLET ONE (04:22)
[2017-01-29] MEDS ORDERED: METHADONE HCL 10 MG TABLET PO SCH (06:00)
[2017-01-29] MEDS: METHADONE 40 MG, METHADONE 20 MG PO SCH (06:13)
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
[2017-01-29] MEDS: PRENATAL VITAMINS W/ FOLIC ACID TABLET (FP) PO SCH (10:00)
[2017-01-29] MEDS: hydrOXYzine PAMOATE 50 MG CAPSULE (FP) PO PRN ×2 (10:00→21:14)
[2017-01-29] MEDS: NICOTINE 14 MG/24 HOURS TOPICAL PATCH TD SCH (10:00)
[2017-01-29] MEDS: THIAMINE HCL 100 MG TABLET (FP) PO SCH (21:14)
[2017-01-30] MEDS ORDERED: METHADONE HCL 10 MG TABLET ONE (04:10)
[2017-01-30] MEDS ORDERED: METHADONE HCL 40 MG DISPERSABLE TABLET ONE (04:10)
[2017-01-30] MEDS: METHADONE 40 MG, METHADONE 20 MG PO SCH (06:28)
[2017-01-30] MEDS: PRENATAL VITAMINS W/ FOLIC ACID TABLET (FP) PO SCH (10:07)
[2017-01-30] MEDS: NICOTINE 14 MG/24 HOURS TOPICAL PATCH TD SCH (10:07)
[2017-01-30] MEDS: hydrOXYzine PAMOATE 50 MG CAPSULE (FP) PO PRN ×3 (10:08→21:52)
[2017-01-30] MEDS: NICOTINE POLACRILEX 2 MG GUM BUC PRN ×2 (15:23→21:53)
[2017-01-30] MEDS: THIAMINE HCL 100 MG TABLET (FP) PO SCH (21:53)
[2017-01-30] MEDS: ACETAMINOPHEN 325 MG TABLET (FP) PO PRN (21:54)
[2017-01-31] MEDS ORDERED: METHADONE HCL 10 MG TABLET ONE (03:49)
[2017-01-31] MEDS ORDERED: METHADONE HCL 40 MG DISPERSABLE TABLET ONE (03:49)
[2017-01-31] MEDS: METHADONE 40 MG, METHADONE 20 MG PO SCH (06:21)
[2017-01-31] MEDS: hydrOXYzine PAMOATE 50 MG CAPSULE (FP) PO PRN ×4 (06:23→21:50)
[2017-01-31] MEDS: NICOTINE POLACRILEX 2 MG GUM BUC PRN (09:26)
[2017-01-31] MEDS: PRENATAL VITAMINS W/ FOLIC ACID TABLET (FP) PO SCH (10:09)
[2017-01-31] MEDS: NICOTINE 14 MG/24 HOURS TOPICAL PATCH TD SCH (10:09)
[2017-01-31] MEDS ORDERED: COLLOIDAL OATMEAL 1 BAR EACH TP PRN (11:31)
[2017-01-31] MEDS: ACETAMINOPHEN 325 MG TABLET (FP) PO PRN ×2 (17:42→21:51)
[2017-01-31] MEDS: THIAMINE HCL 100 MG TABLET (FP) PO SCH (21:49)
[2017-02-01] MEDS ORDERED: METHADONE HCL 40 MG DISPERSABLE TABLET ONE (08:56)
[2017-02-01] MEDS ORDERED: METHADONE HCL 10 MG TABLET ONE (08:56)
[2017-02-01] MEDS ORDERED: METHADONE HCL 40 MG DISPERSABLE TABLET PO SCH (10:00)
[2017-02-01] MEDS: PRENATAL VITAMINS W/ FOLIC ACID TABLET (FP) PO SCH (10:09)
[2017-02-01] MEDS: hydrOXYzine PAMOATE 50 MG CAPSULE (FP) PO PRN ×3 (10:09→21:16)
[2017-02-01] MEDS: NICOTINE 14 MG/24 HOURS TOPICAL PATCH TD SCH (10:09)
[2017-02-01] MEDS: METHADONE 40 MG, METHADONE 20 MG PO SCH (10:09)
[2017-02-01] MEDS: NICOTINE POLACRILEX 2 MG GUM BUC PRN ×3 (10:10→21:16)
[2017-02-01] MEDS: THIAMINE HCL 100 MG TABLET (FP) PO SCH (21:16)
[2017-02-01] MEDS: ACETAMINOPHEN 325 MG TABLET (FP) PO PRN (21:18)
[2017-02-02] MEDS: NICOTINE POLACRILEX 2 MG GUM BUC PRN ×4 (02:10→21:42)
[2017-02-02] MEDS ORDERED: METHADONE HCL 10 MG TABLET ONE (09:04)
[2017-02-02] MEDS ORDERED: METHADONE HCL 40 MG DISPERSABLE TABLET ONE (09:04)
[2017-02-02] MEDS: METHADONE 40 MG, METHADONE 20 MG PO SCH (10:26)
[2017-02-02] MEDS: PRENATAL VITAMINS W/ FOLIC ACID TABLET (FP) PO SCH (10:26)
[2017-02-02] MEDS: NICOTINE 14 MG/24 HOURS TOPICAL PATCH TD SCH (10:26)
--- NOTE | 2017-02-02 13:50 | PN ---
Psychiatric Progress Note Vital Signs: Vital Signs Period Temp Pulse Resp BP Sys/Egan Pulse Ox Last 24 Hr 18-18 Date of Session: 02/02/17 Chief Complaint:: Insomnia HPI: Alcohol, Cocaine and Cannabis Dependence comorobid with Opoid Dependence on Agonist Therapy and Nicotine Dependence ROS: Asthma Current Medications: Active Medications Generic Name Dose Route Start Last Admin Trade Name Freq PRN Reason Stop Dose Admin Acetaminophen 650 mg 01/28/17 12:50 02/01/17 21:18 Tylenol - PO 650 mg Q4H PRN Administration FEVER OR PAIN Al Hydroxide/Mg Hydroxide 30 ml 01/28/17 12:50 Mylanta Oral Suspension - PO Q6H PRN DYSPEPSIA Albuterol Sulfate 2 puff 01/28/17 12:52 01/31/17 14:23 Ventolin Hfa Inhaler - IH 2 inh Q4H PRN Administration ASTHMA Colloidal Oatmeal 1 applic 01/31/17 11:31 01/31/17 14:22 Aveeno Soap - TP 1 bar DAILY PRN Administration HYGEINE Eucalyptus/Menthol/Phenol/Sorbitol 1 each 01/28/17 12:50 Cepastat Lozenge - MM Q4H PRN SORE THROAT Guaifenesin 10 ml 01/28/17 12:50 Robitussin Dm - PO Q6H PRN COUGH Hydroxyzine Pamoate 50 mg 01/28/17 12:50 02/01/17 21:16 Vistaril - PO 50 mg Q4H PRN Administration AGITATION Ibuprofen 400 mg 01/28/17 12:50 01/30/17 12:05 Motrin - PO 400 mg Q6H PRN Administration PAIN Loperamide HCl 4 mg 01/28/17 12:50 Imodium - PO Q6H PRN DIARRHEA Magnesium Citrate 300 ml 01/28/17 12:50 Citroma - PO Q48H PRN CONSTIPATION Magnesium Hydroxide 30 ml 01/28/17 12:50 Milk Of Magnesia - PO DAILY PRN CONSTIPATION Methadone HCl 40 mg/ Methadone 60 mg 02/01/17 10:00 02/02/17 10:26 HCl 20 mg PO 02/07/17 09:59 60 mg DAILY WOJCIECH Administration Nicotine 14 mg 01/29/17 10:00 02/02/17 10:26 Nicoderm Patch - TD 14 mg DAILY WOJCIECH Administration Nicotine Polacrilex 2 mg 12/03/17 12:50 02/02/17 02:10 Nicorette Gum - BUC 2 mg Q2H PRN Administration NICOTINE REPLACEMENT RX Multivit/Folic Acid/Iron 1 tab 01/29/17 10:00 02/02/17 10:26 Vitamins (Sjr) - PO 1 tab DAILY WOJCIECH Administration Pseudoephedrine/Triprolidine 1 combo 01/28/17 12:50 01/28/17 17:45 Actifed - PO 1 combo TID PRN Administration NASAL CONGESTION Thiamine HCl 100 mg 01/28/17 22:00 02/01/17 21:16 Vitamin B1 - PO 100 mg HS WOJCIECH Administration Trazodone HCl 100 mg 02/02/17 22:00 Desyrel - PO HS WOJCIECH Medication(s) Change(s): Start Trazadone 100 mg po HS for insomnia Current Side Effect: No Lab tests ordered: Yes Lab tests reviewed: Yes Provider note:: Reports experiencing difficulty to sleep. 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 Requests to Ambien or Some medication for which he can get script. Hypnotic along with adverse-effects of Trazadone were discussed with patient and she agreed to try it Total face to face time:: 15 Mental Status Exam - Mental Status Exam Alert and Oriented to: Time, Place, Person Cognitive Function: Fair Patient Appearance: Well Groomed Mood: Hopeful, Euthymic Affect: Appropriate Patient Behavior: Cooperative Speech Pattern: Clear Voice Loudness: Normal Thought Process: Intact, Goal Oriented Thought Disorder: Not Present Hallucinations: Denies Suicidal Ideation: Denies Homicidal Ideation: Denies Sleep: Poorly Appetite: Good Muscle strength/Tone: Normal Gait/Station: Normal Psychiatric Treatment Plan - Problem List (1) Alcohol dependence Current Visit: Yes (2) Cocaine dependence Current Visit: No Qualifiers: Substance use status: uncomplicated Qualified Code(s): F14.20 - Cocaine dependence, uncomplicated (3) Cannabis dependence Current Visit: No Comment: USES K2 AND MARIJUANA (4) Opioid dependence on agonist therapy Current Visit: No (5) Nicotine dependence Current Visit: No Qualifiers: Nicotine product type: cigarettes Substance use status: in withdrawal Qualified Code(s): F17.213 - Nicotine dependence, cigarettes, with withdrawal (6) Asthma Current Visit: No (7) Substance-induced sleep disorder Current Visit: Yes Initial treatment plan: 1) Start Trazadone 100 mg po HS for insomnia. 2) Monitor progress
[2017-02-02] MEDS: THIAMINE HCL 100 MG TABLET (FP) PO SCH (21:42)
[2017-02-02] MEDS ORDERED: traZODone HCL 100 MG TABLET (FP) PO SCH (22:00)
[2017-02-03 06:59] VITALS: TEMP 97.9
[2017-02-03 07:00] VITALS: BP 101/59; PULSE 53
[2017-02-03] MEDS: NICOTINE POLACRILEX 2 MG GUM BUC PRN ×2 (08:22→11:53)
[2017-02-03] MEDS ORDERED: METHADONE HCL 10 MG TABLET ONE (09:10)
[2017-02-03] MEDS ORDERED: METHADONE HCL 40 MG DISPERSABLE TABLET ONE (09:11)
[2017-02-03] MEDS: METHADONE 40 MG, METHADONE 20 MG PO SCH (10:15)
[2017-02-03] MEDS: PRENATAL VITAMINS W/ FOLIC ACID TABLET (FP) PO SCH (10:15)
[2017-02-03] MEDS: NICOTINE 14 MG/24 HOURS TOPICAL PATCH TD SCH (10:15)
[2017-02-03] MEDS: hydrOXYzine PAMOATE 50 MG CAPSULE (FP) PO PRN (13:12)
== END 2017-02-03 17:40 | disposition left against medical advice (07) | DRG 770 ==
LOC: YASAS 11:28 → Y3W 11:33
PROVIDERS: ADMIT Psychiatry & Neurology Psychiatry; ATTEND Psychiatry & Neurology Psychiatry
PROC: HZ41ZZZ Group Counseling for Substance Abuse Treatment, Behavioral (ICD-10-PCS; principal; 2017-01-28)
DX: F11.20 Opioid dependence, uncomplicated (principal); F10.20 Alcohol dependence, uncomplicated; F14.20 Cocaine dependence, uncomplicated; F12.20 Cannabis dependence, uncomplicated; F19.282 Other psychoactive substance dependence with psychoactive substance-induced sleep disorder; J45.909 Unspecified asthma, uncomplicated

== ENCOUNTER 2017-03-29 01:00 | Inpatient (IN) | payer OTHER ==
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
[2017-03-29] MEDS ORDERED: MAGNESIUM CITRATE 300 ML BOTTLE PO PRN (02:00)
[2017-03-29] MEDS ORDERED: MAGNESIUM HYDROX 2400MG/30ML ORAL SUSPENSION 30 ML CUP PO PRN (02:00)
[2017-03-29] MEDS ORDERED: guaiFENesin/D-METHORPHAN HB 10 ML UNIT-DOSE CUPS PO PRN (02:00)
[2017-03-29] MEDS ORDERED: ACETAMINOPHEN 325 MG TABLET (FP) PO PRN (02:00)
[2017-03-29] MEDS ORDERED: P-EPHED 60MG/TRIPROLIDI 2.5MG TABLET PO PRN (02:00)
[2017-03-29] MEDS ORDERED: diazePAM 5 MG TABLET PO ONE (02:00)
[2017-03-29] MEDS ORDERED: IBUPROFEN 400 MG TABLET (FP) PO PRN (02:00)
[2017-03-29] MEDS ORDERED: diazePAM 5 MG TABLET PO PRN (02:00)
[2017-03-29] MEDS ORDERED: MENTHOL/PHENOL 1 EACH UD MM PRN (02:00)
[2017-03-29] MEDS ORDERED: MAG HYDROX/AL HYDROX/SIMETH 30 ML UNIT-DOSE CUP PO PRN (02:00)
[2017-03-29] MEDS ORDERED: LOPERAMIDE HCL 2 MG CAPSULE PO PRN (02:00)
[2017-03-29] MEDS ORDERED: ALBUTEROL SO4 18 GM HFA INHALER IH PRN (02:03)
[2017-03-29] MEDS ORDERED: chlordiazePOXIDE HCL 25 MG CAPSULE PO PRN (02:09)
[2017-03-29] MEDS ORDERED: chlordiazePOXIDE HCL 25 MG CAPSULE PO ONE (02:09)
[2017-03-29 02:19] VITALS: BMI 22.3
[2017-03-29] MEDS: chlordiazePOXIDE HCL 25 MG CAPSULE PO SCH ×4 (05:33→22:10)
[2017-03-29] MEDS ORDERED: diazePAM 5 MG TABLET PO SCH (06:00)
[2017-03-29] MEDS ORDERED: METHADONE HCL 40 MG DISPERSABLE TABLET PO SCH (09:00)
[2017-03-29] MEDS ORDERED: METHADONE HCL 40 MG DISPERSABLE TABLET ONE (09:40)
[2017-03-29] MEDS ORDERED: METHADONE HCL 10 MG TABLET ONE (09:41)
[2017-03-29] MEDS: METHADONE 40 MG, METHADONE 30 MG PO SCH (09:54)
--- NOTE | 2017-03-29 10:14 | PN ---
[facility] CIWA - CIWA Score Nausea/Vomitin-Mild Nausea/No Vomiting Muscle Tremors: 4-Moderate,w/Arms Extend Anxiety: 4-Mod. Anxious/Guarded Agitation: 2 Paroxysmal Sweats: 1-Minimal Palms Moist Orientation: 0-Oriented Tacttile Disturbances: 1-Very Mild Itch/Numbness Auditory Disturbances: 0-None Visual Disturbances: 0-None Headache: 1-Very Mild CIWA-Ar Total Score: 14 BHS COWS - Scale Resting Pulse: 1= [place] 81-100 Sweatin= Chills/Flushing Restless Observation: 3= Extraneous Movement Pupil Size: 0= Normal to Room Light Bone or Joint Aches: 2= Severe Diffuse Aches Runny Nose/ Eye Tearin= Nasal Congestion GI Upset > 30mins: 2= Nausea/Diarrhea Tremor Observation of Outstretched Hands: 2= Slight Tremor Visible Yawning Observation: 0= None Anxiety or Irritability: 2=Irritable/Anxious Goose Flesh Skin: 3=Piloerection COWS Score: 17 BHS Progress Note (SOAP) Subjective: tremor anxiety sweat agitation restlessness joint aches Objective: 03/29/17 10:13 Vital Signs Temperature 100.0 F H 03/29/17 08:12 Pulse Rate 101 H 03/29/17 08:12 Respiratory Rate 20 03/29/17 08:12 Blood Pressure 121/68 03/29/17 08:12 O2 Sat by Pulse Oximetry (%) lab not available Assessment: 03/29/17 10:14 withdrawal sx Plan: continue detox
[2017-03-29 10:18] LABS: HEMOGLOBIN 12.3 GM/dL (11.7-16.9); MCHC 32.4 g/dl (32.0-35.9); MEAN CELL VOLUME 86.6 fl (80-96); PLATELET COUNT 265 K/MM3 (134-434); RBC 4.39 M/mm3 (4.00-5.60); RDW 13.3 % (11.9-15.9); WHITE BLOOD COUNT 14.2 K/mm3 (4.0-10.0)
[2017-03-29] MEDS: NICOTINE 14 MG/24 HOURS TOPICAL PATCH TD SCH (10:18)
[2017-03-29] MEDS: PRENATAL VITAMINS W/ FOLIC ACID TABLET (FP) PO SCH (10:18)
[2017-03-29 10:40] LABS: ALBUMIN 3.1 g/dl (3.4-5.0); ANION GAP 6 (8-16); CALCIUM 8.5 mg/dL (8.5-10.1); CHLORIDE 100 mmol/L (98-107); CO2 29 mmol/L (21-32); CREATININE 0.8 mg/dL (0.7-1.3); POTASSIUM 4.2 mmol/L (3.5-5.1); SGOT/AST 16 U/L (15-37); SGPT/ALT 24 U/L (12-78); SODIUM 135 mmol/L (136-145)
[2017-03-29 10:41] LABS: ALK PHOS 75 U/L (45-117); BILIRUBIN,TOTAL 0.4 mg/dL (0.2-1.0); BLOOD UREA NITROGEN 11 mg/dL (7-18); GLUCOSE,RANDOM 82 mg/dL (74-106); TOT PROT 6.4 g/dl (6.4-8.2)
--- NOTE | 2017-03-29 11:06 | EKG ---
Test Reason : Blood Pressure : / mmHG Vent. Rate : 085 BPM Atrial Rate : 085 BPM P-R Int : 174 ms QRS Dur : 102 ms QT Int : 354 ms P-R-T Axes : 061 -78 065 degrees QTc Int : 421 ms NORMAL SINUS RHYTHM LEFT AXIS DEVIATION ABNORMAL ECG WHEN COMPARED WITH ECG OF 24-JAN-2017 15:16, VENT. RATE HAS INCREASED BY 31 BPM Confirmed by BELINDA ROBLES, EUGENIA ([id number]) on 03/29/2017 11:06:01 AM Referred By: Confirmed By:EUGENIA TREVINO MD
[2017-03-29] MEDS: NICOTINE POLACRILEX 2 MG GUM BC PRN (15:39)
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
[2017-03-29] MEDS: THIAMINE HCL 100 MG TABLET (FP) PO SCH (22:09)
[2017-03-29] MEDS: QUEtiapine FUMARATE 50 MG TABLET PO SCH (22:10)
[2017-03-29 22:17] LABS: URINE APPEARANCE TURBID; URINE BILIRUBIN NEGATIVE (NEGATIVE); URINE BLOOD NEGATIVE (NEGATIVE); URINE COLOR YELLOW; URINE GLUCOSE (UA) NEGATIVE (NEGATIVE); URINE KETONE NEGATIVE (NEGATIVE); URINE NITRITE NEGATIVE (NEGATIVE)
[2017-03-29 22:38] LABS: URINE LEUK ESTERASE 1+ (NEGATIVE); URINE PROTEIN 1+ (NEGATIVE)
[2017-03-29 22:42] LABS: EPI CELLS RARE /HPF (FEW); URINE MUCUS MANY
[2017-03-30] MEDS ORDERED: METHADONE HCL 10 MG TABLET ONE (04:33)
[2017-03-30] MEDS ORDERED: METHADONE HCL 40 MG DISPERSABLE TABLET ONE (04:33)
[2017-03-30] MEDS: METHADONE 40 MG, METHADONE 30 MG PO SCH (07:08)
[2017-03-30] MEDS: chlordiazePOXIDE HCL 25 MG CAPSULE PO SCH ×4 (07:09→22:08)
[2017-03-30 09:58] LABS: HEMATOCRIT 38.4 % (35.4-49); HEMOGLOBIN 12.2 GM/dL (11.7-16.9); MCH 27.8 pg (25.7-33.7); MCHC 31.8 g/dl (32.0-35.9); MEAN CELL VOLUME 87.5 fl (80-96); PLATELET COUNT 256 K/MM3 (134-434); RBC 4.39 M/mm3 (4.00-5.60); RDW 13.7 % (11.9-15.9); WHITE BLOOD COUNT 9.8 K/mm3 (4.0-10.0)
[2017-03-30] MEDS: PRENATAL VITAMINS W/ FOLIC ACID TABLET (FP) PO SCH (10:57)
[2017-03-30] MEDS: NICOTINE 14 MG/24 HOURS TOPICAL PATCH TD SCH (10:59)
--- NOTE | 2017-03-30 13:44 | PN ---
S CIWA - CIWA Score Nausea/Vomitin Muscle Tremors: 3 Anxiety: 3 Agitation: 3 Paroxysmal Sweats: 1-Minimal Palms Moist Orientation: 0-Oriented Tacttile Disturbances: 1-Very Mild Itch/Numbness Auditory Disturbances: 1-Very Mild Visual Disturbances: 0-None Headache: 2-Mild CIWA-Ar Total Score: 17 BHS Progress Note (SOAP) Subjective: ALERT,IRRITABLE,ANXIOUS,INTERRUPTED SLEEP,TREMOR PAIN IN THE BODY AND BACK Objective: 03/30/17 13:41 Vital Signs Temperature 96.8 F L 03/30/17 10:12 Pulse Rate 66 03/30/17 10:12 Respiratory Rate 20 03/30/17 10:12 Blood Pressure 123/82 03/30/17 10:12 O2 Sat by Pulse Oximetry (%) EKG NSR 03/30/17 13:42 Laboratory Last Values WBC 9.8 K/mm3 (4.0-10.0) D 03/30/17 07:00 RBC 4.39 M/mm3 (4.00-5.60) 03/30/17 07:00 Hgb 12.2 GM/dL (11.7-16.9) 03/30/17 07:00 Hct 38.4 % (35.4-49) 03/30/17 07:00 MCV 87.5 fl (80-96) 03/30/17 07:00 MCH 27.8 pg (25.7-33.7) 03/30/17 07:00 MCHC 31.8 g/dl (32.0-35.9) L 03/30/17 07:00 RDW 13.7 % (11.9-15.9) 03/30/17 07:00 Plt Count 256 K/MM3 (134-434) 03/30/17 07:00 MPV 8.0 fl (7.5-11.1) 03/30/17 07:00 Sodium 135 mmol/L (136-145) L 03/29/17 07:00 Potassium 4.2 mmol/L (3.5-5.1) 03/29/17 07:00 Chloride 100 mmol/L (98-107) 03/29/17 07:00 Carbon Dioxide 29 mmol/L (21-32) 03/29/17 07:00 Anion Gap 6 (8-16) L 03/29/17 07:00 BUN 11 mg/dL (7-18) D 03/29/17 07:00 Creatinine 0.8 mg/dL (0.7-1.3) D 03/29/17 07:00 Creat Clearance w eGFR > 60 (>60) 03/29/17 07:00 Random Glucose 82 mg/dL (74-106) 03/29/17 07:00 Calcium 8.5 mg/dL (8.5-10.1) 03/29/17 07:00 Total Bilirubin 0.4 mg/dL (0.2-1.0) D 03/29/17 07:00 AST 16 U/L (15-37) 03/29/17 07:00 ALT 24 U/L (12-78) 03/29/17 07:00 Alkaline Phosphatase 75 U/L (45-117) 03/29/17 07:00 Total Protein 6.4 g/dl (6.4-8.2) 03/29/17 07:00 Albumin 3.1 g/dl (3.4-5.0) L 03/29/17 07:00 Urine Color Yellow 03/29/17 22:04 Urine Appearance Turbid 03/29/17 22:04 Urine pH 5.0 (5.0-8.0) 03/29/17 22:04 Ur Specific [place] 1.036 (1.001-1.035) H 03/29/17 22:04 Urine Protein 1+ (NEGATIVE) H 03/29/17 22:04 Urine Glucose (UA) Negative (NEGATIVE) 03/29/17 22:04 Urine Ketones Negative (NEGATIVE) 03/29/17 22:04 Urine Blood Negative (NEGATIVE) 03/29/17 22:04 Urine Nitrite Negative (NEGATIVE) 03/29/17 22:04 Urine Bilirubin Negative (NEGATIVE) 03/29/17 22:04 Urine Urobilinogen 2.0 mg/dL (0.2-1.0) 03/29/17 22:04 Ur Leukocyte Esterase 1+ (NEGATIVE) H 03/29/17 22:04 Urine WBC (Auto) 74 /hpf (3-5) 03/29/17 22:04 Urine RBC (Auto) 6 /hpf (0-3) 03/29/17 22:04 Ur Epithelial Cells Rare /HPF (FEW) 03/29/17 22:04 Urine Mucus Many 03/29/17 22:04 RPR Titer Nonreactive (NONREACTIVE) 03/29/17 07:00 Hepatitis C Antibody <0.1 s/co ratio (0.0-0.9) 03/29/17 06:00 Assessment: 03/30/17 13:43 WITHDRAWAL SYMPTOM Plan: CONTINUE DETOX
[2017-03-30] MEDS: THIAMINE HCL 100 MG TABLET (FP) PO SCH (22:08)
[2017-03-30] MEDS: hydrOXYzine PAMOATE 50 MG CAPSULE (FP) PO PRN (22:08)
[2017-03-30] MEDS: QUEtiapine FUMARATE 50 MG TABLET PO SCH (22:08)
[2017-03-31] MEDS ORDERED: METHADONE HCL 40 MG DISPERSABLE TABLET ONE (04:10)
[2017-03-31] MEDS ORDERED: METHADONE HCL 10 MG TABLET ONE (04:11)
[2017-03-31] MEDS: METHADONE 40 MG, METHADONE 30 MG PO SCH (06:13)
[2017-03-31] MEDS: chlordiazePOXIDE 5 MG CAPSULE PO SCH ×4 (06:13→22:27)
[2017-03-31] MEDS: NICOTINE POLACRILEX 2 MG GUM BC PRN ×2 (09:46→14:54)
[2017-03-31] MEDS ORDERED: diazePAM 5 MG TABLET PO SCH (10:00)
[2017-03-31] MEDS: PRENATAL VITAMINS W/ FOLIC ACID TABLET (FP) PO SCH (10:18)
[2017-03-31] MEDS: NICOTINE 14 MG/24 HOURS TOPICAL PATCH TD SCH (10:19)
[2017-03-31] MEDS ORDERED: COLLOIDAL OATMEAL 1 BAR EACH TP PRN (11:54)
--- NOTE | 2017-03-31 11:54 | PN ---
BHS Progress Note (SOAP) Subjective: ALERT,IRRITABLE,ANXIOUS,INTERRUPTED SLEEP,PAIN IN THE BODY Objective: 03/31/17 11:53 Vital Signs Temperature 98.2 F 03/31/17 10:10 Pulse Rate 81 03/31/17 10:10 Respiratory Rate 20 03/31/17 10:10 Blood Pressure 123/72 03/31/17 10:10 O2 Sat by Pulse Oximetry (%) Assessment: 03/31/17 11:53 WITHDRAWAL SYMPTOM Plan: CONTINUE DETOX,[place] SOAP
[2017-03-31] MEDS: QUEtiapine FUMARATE 50 MG TABLET PO SCH (22:27)
[2017-03-31] MEDS: THIAMINE HCL 100 MG TABLET (FP) PO SCH (22:27)
[2017-03-31] MEDS: hydrOXYzine PAMOATE 50 MG CAPSULE (FP) PO PRN (22:27)
[2017-04-01] MEDS ORDERED: METHADONE HCL 40 MG DISPERSABLE TABLET ONE (04:14)
[2017-04-01] MEDS ORDERED: METHADONE HCL 10 MG TABLET ONE (04:14)
[2017-04-01] MEDS: METHADONE 40 MG, METHADONE 30 MG PO SCH (05:30)
[2017-04-01] MEDS: chlordiazePOXIDE HCL 10 MG CAPSULE PO SCH ×4 (05:30→22:18)
[2017-04-01] MEDS: NICOTINE 14 MG/24 HOURS TOPICAL PATCH TD SCH (10:21)
[2017-04-01] MEDS: PRENATAL VITAMINS W/ FOLIC ACID TABLET (FP) PO SCH (10:21)
[2017-04-01] MEDS: NICOTINE POLACRILEX 2 MG GUM BC PRN (10:22)
--- NOTE | 2017-04-01 13:37 | PN ---
S Progress Note (SOAP) Subjective: mild tremor, less sweat, feeling better, agrees follow up with aftercare Objective: 04/01/17 13:36 Vital Signs Temperature 96.8 F L 04/01/17 10:13 Pulse Rate 60 04/01/17 10:13 Respiratory Rate 20 04/01/17 10:13 Blood Pressure 108/57 04/01/17 10:13 O2 Sat by Pulse Oximetry (%) Laboratory Last Values WBC 9.8 K/mm3 (4.0-10.0) D 03/30/17 07:00 RBC 4.39 M/mm3 (4.00-5.60) 03/30/17 07:00 Hgb 12.2 GM/dL (11.7-16.9) 03/30/17 07:00 Hct 38.4 % (35.4-49) 03/30/17 07:00 MCV 87.5 fl (80-96) 03/30/17 07:00 MCH 27.8 pg (25.7-33.7) 03/30/17 07:00 MCHC 31.8 g/dl (32.0-35.9) L 03/30/17 07:00 RDW 13.7 % (11.9-15.9) 03/30/17 07:00 Plt Count 256 K/MM3 (134-434) 03/30/17 07:00 MPV 8.0 fl (7.5-11.1) 03/30/17 07:00 Sodium 135 mmol/L (136-145) L 03/29/17 07:00 Potassium 4.2 mmol/L (3.5-5.1) 03/29/17 07:00 Chloride 100 mmol/L (98-107) 03/29/17 07:00 Carbon Dioxide 29 mmol/L (21-32) 03/29/17 07:00 Anion Gap 6 (8-16) L 03/29/17 07:00 BUN 11 mg/dL (7-18) D 03/29/17 07:00 Creatinine 0.8 mg/dL (0.7-1.3) D 03/29/17 07:00 Creat Clearance w eGFR > 60 (>60) 03/29/17 07:00 Random Glucose 82 mg/dL (74-106) 03/29/17 07:00 Calcium 8.5 mg/dL (8.5-10.1) 03/29/17 07:00 Total Bilirubin 0.4 mg/dL (0.2-1.0) D 03/29/17 07:00 AST 16 U/L (15-37) 03/29/17 07:00 ALT 24 U/L (12-78) 03/29/17 07:00 Alkaline Phosphatase 75 U/L (45-117) 03/29/17 07:00 Total Protein 6.4 g/dl (6.4-8.2) 03/29/17 07:00 Albumin 3.1 g/dl (3.4-5.0) L 03/29/17 07:00 Urine Color Yellow 03/29/17 22:04 Urine Appearance Turbid 03/29/17 22:04 Urine pH 5.0 (5.0-8.0) 03/29/17 22:04 Ur Specific [place] 1.036 (1.001-1.035) H 03/29/17 22:04 Urine Protein 1+ (NEGATIVE) H 03/29/17 22:04 Urine Glucose (UA) Negative (NEGATIVE) 03/29/17 22:04 Urine Ketones Negative (NEGATIVE) 03/29/17 22:04 Urine Blood Negative (NEGATIVE) 03/29/17 22:04 Urine Nitrite Negative (NEGATIVE) 03/29/17 22:04 Urine Bilirubin Negative (NEGATIVE) 03/29/17 22:04 Urine Urobilinogen 2.0 mg/dL (0.2-1.0) 03/29/17 22:04 Ur Leukocyte Esterase 1+ (NEGATIVE) H 03/29/17 22:04 Urine WBC (Auto) 74 /hpf (3-5) 03/29/17 22:04 Urine RBC (Auto) 6 /hpf (0-3) 03/29/17 22:04 Ur Epithelial Cells Rare /HPF (FEW) 03/29/17 22:04 Urine Mucus Many 03/29/17 22:04 RPR Titer Nonreactive (NONREACTIVE) 03/29/17 07:00 Hepatitis C Antibody <0.1 s/co ratio (0.0-0.9) 03/29/17 06:00 lab noted Assessment: 04/01/17 13:36 withdrawal sx Plan: continue detox
[2017-04-01] MEDS: hydrOXYzine PAMOATE 50 MG CAPSULE (FP) PO PRN ×2 (14:35→18:15)
[2017-04-01 15:23] VITALS: TEMP 98.4
[2017-04-01] MEDS: THIAMINE HCL 100 MG TABLET (FP) PO SCH (22:18)
[2017-04-01] MEDS: QUEtiapine FUMARATE 50 MG TABLET PO SCH (22:18)
[2017-04-02] MEDS ORDERED: METHADONE HCL 40 MG DISPERSABLE TABLET ONE (05:04)
[2017-04-02] MEDS ORDERED: METHADONE HCL 10 MG TABLET ONE (05:05)
[2017-04-02] MEDS: METHADONE 40 MG, METHADONE 30 MG PO SCH (06:14)
[2017-04-02 06:24] VITALS: BP 94/58; PULSE 60
--- NOTE | 2017-04-02 09:52 | DS ---
[facility] Detox Discharge Summary Admission Date: 03/29/17 Discharge Date: 04/02/17 - History Present History: Alcohol Dependence - Physical Exam Results Vital Signs: Vital Signs Temperature 98.4 F 04/02/17 06:23 Pulse Rate 60 04/02/17 06:23 Respiratory Rate 16 04/02/17 06:23 Blood Pressure 94/58 04/02/17 06:23 O2 Sat by Pulse Oximetry (%) Pertinent Admission Physical Exam Findings: withdrawal sx Vital Signs Temperature 98.4 F 04/02/17 06:23 Pulse Rate 60 04/02/17 06:23 Respiratory Rate 16 04/02/17 06:23 Blood Pressure 94/58 04/02/17 06:23 O2 Sat by Pulse Oximetry (%) Laboratory Last Values WBC 9.8 K/mm3 (4.0-10.0) D 03/30/17 07:00 RBC 4.39 M/mm3 (4.00-5.60) 03/30/17 07:00 Hgb 12.2 GM/dL (11.7-16.9) 03/30/17 07:00 Hct 38.4 % (35.4-49) 03/30/17 07:00 MCV 87.5 fl (80-96) 03/30/17 07:00 MCH 27.8 pg (25.7-33.7) 03/30/17 07:00 MCHC 31.8 g/dl (32.0-35.9) L 03/30/17 07:00 RDW 13.7 % (11.9-15.9) 03/30/17 07:00 Plt Count 256 K/MM3 (134-434) 03/30/17 07:00 MPV 8.0 fl (7.5-11.1) 03/30/17 07:00 Sodium 135 mmol/L (136-145) L 03/29/17 07:00 Potassium 4.2 mmol/L (3.5-5.1) 03/29/17 07:00 Chloride 100 mmol/L (98-107) 03/29/17 07:00 Carbon Dioxide 29 mmol/L (21-32) 03/29/17 07:00 Anion Gap 6 (8-16) L 03/29/17 07:00 BUN 11 mg/dL (7-18) D 03/29/17 07:00 Creatinine 0.8 mg/dL (0.7-1.3) D 03/29/17 07:00 Creat Clearance w eGFR > 60 (>60) 03/29/17 07:00 Random Glucose 82 mg/dL (74-106) 03/29/17 07:00 Calcium 8.5 mg/dL (8.5-10.1) 03/29/17 07:00 Total Bilirubin 0.4 mg/dL (0.2-1.0) D 03/29/17 07:00 AST 16 U/L (15-37) 03/29/17 07:00 ALT 24 U/L (12-78) 03/29/17 07:00 Alkaline Phosphatase 75 U/L (45-117) 03/29/17 07:00 Total Protein 6.4 g/dl (6.4-8.2) 03/29/17 07:00 Albumin 3.1 g/dl (3.4-5.0) L 03/29/17 07:00 Urine Color Yellow 03/29/17 22:04 Urine Appearance Turbid 03/29/17 22:04 Urine pH 5.0 (5.0-8.0) 03/29/17 22:04 Ur Specific [place] 1.036 (1.001-1.035) H 03/29/17 22:04 Urine Protein 1+ (NEGATIVE) H 03/29/17 22:04 Urine Glucose (UA) Negative (NEGATIVE) 03/29/17 22:04 Urine Ketones Negative (NEGATIVE) 03/29/17 22:04 Urine Blood Negative (NEGATIVE) 03/29/17 22:04 Urine Nitrite Negative (NEGATIVE) 03/29/17 22:04 Urine Bilirubin Negative (NEGATIVE) 03/29/17 22:04 Urine Urobilinogen 2.0 mg/dL (0.2-1.0) 03/29/17 22:04 Ur Leukocyte Esterase 1+ (NEGATIVE) H 03/29/17 22:04 Urine WBC (Auto) 74 /hpf (3-5) 03/29/17 22:04 Urine RBC (Auto) 6 /hpf (0-3) 03/29/17 22:04 Ur Epithelial Cells Rare /HPF (FEW) 03/29/17 22:04 Urine Mucus Many 03/29/17 22:04 RPR Titer Nonreactive (NONREACTIVE) 03/29/17 07:00 Hepatitis C Antibody <0.1 s/co ratio (0.0-0.9) 03/29/17 06:00 lab noted - Treatment Hospital Course: Detox Protocol Followed, Detoxed Safely, Responded well, Discharged Condition Good, Rehab Referral Accepted - Medication Discharge Medications: Ambulatory Orders Albuterol Sulfate Inhaler - [Ventolin HFA Inhaler -] 2 inh PO Q4H PRN 01/24/17 Methadone [Dolophine -] 60 mg PO DAILY 01/24/17 - Diagnosis (1) Alcohol dependence with uncomplicated withdrawal Status: Acute (2) Methadone maintenance therapy patient Status: Chronic - AMA Did Patient Leave Against Medical Advice: No
[2017-04-02] MEDS ORDERED: diazePAM 5 MG TABLET PO SCH (10:00)
== END 2017-04-02 06:40 | disposition home or self-care (01) | DRG 773 ==
LOC: YASAS 01:00 → Y6N 01:32
PROVIDERS: ADMIT Internal Medicine; ATTEND Internal Medicine
PROC: HZ2ZZZZ Detoxification Services for Substance Abuse Treatment (ICD-10-PCS; principal; 2017-03-29)
DX: F11.23 Opioid dependence with withdrawal (principal); F11.20 Opioid dependence, uncomplicated; F14.20 Cocaine dependence, uncomplicated; F12.20 Cannabis dependence, uncomplicated; F17.213 Nicotine dependence, cigarettes, with withdrawal; F19.24 Other psychoactive substance dependence with psychoactive substance-induced mood disorder; F32.9 Major depressive disorder, single episode, unspecified; F41.9 Anxiety disorder, unspecified; K21.9 Gastro-esophageal reflux disease without esophagitis; J45.909 Unspecified asthma, uncomplicated; Z86.69 Personal history of other diseases of the nervous system and sense organs; Z91.5 Personal history of self-harm
CPT/HCPCS: 36415; 80053; 81003; 81015; 85027; 86593; 86803; 93005; 93010

== ENCOUNTER 2017-12-14 14:46 | Inpatient (IN) | payer OTHER ==
[2017-12-14 17:46] VITALS: BMI 20.7
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
[2017-12-14] MEDS ORDERED: MENTHOL/PHENOL 1 EACH UD MM PRN (19:55)
[2017-12-14] MEDS ORDERED: ACETAMINOPHEN 325 MG TABLET (FP) PO PRN (19:55)
[2017-12-14] MEDS ORDERED: MAGNESIUM HYDROX 2400MG/30ML ORAL SUSPENSION 30 ML CUP PO PRN (19:55)
[2017-12-14] MEDS ORDERED: MAG HYDROX/AL HYDROX/SIMETH 30 ML UNIT-DOSE CUP PO PRN (19:55)
[2017-12-14] MEDS ORDERED: METHADONE HCL 10 MG TABLET (FOR DETOX USE ONLY) PO ONE ×2 (19:55→23:00)
[2017-12-14] MEDS ORDERED: MAGNESIUM CITRATE 300 ML BOTTLE PO PRN (19:55)
[2017-12-14] MEDS ORDERED: P-EPHED 60MG/TRIPROLIDI 2.5MG TABLET PO PRN (19:55)
[2017-12-14] MEDS ORDERED: LOPERAMIDE HCL 2 MG CAPSULE PO PRN (19:55)
[2017-12-14] MEDS ORDERED: guaiFENesin/D-METHORPHAN HB 10 ML UNIT-DOSE CUPS PO PRN (19:55)
[2017-12-14] MEDS ORDERED: MELATONIN 5 MG TABLETS PO PRN (22:00)
[2017-12-14] MEDS: THIAMINE HCL 100 MG TABLET (FP) PO SCH (22:31)
[2017-12-15] MEDS: diazePAM 5 MG TABLET PO PRN ×3 (03:34→17:24)
[2017-12-15] MEDS: IBUPROFEN 400 MG TABLET (FP) PO PRN (08:02)
[2017-12-15] MEDS ORDERED: METHADONE HCL 10 MG TABLET (FOR DETOX USE ONLY) PO ONE (10:00)
[2017-12-15] MEDS: PRENATAL VITAMINS W/ FOLIC ACID TABLET (FP) PO SCH (10:19)
[2017-12-15] MEDS: NICOTINE 14 MG/24 HOURS TOPICAL PATCH TD SCH (10:19)
[2017-12-15 10:52] LABS: URINE APPEARANCE SLCLOUDY; URINE BILIRUBIN NEGATIVE (<2.0 mg/dL); URINE COLOR YELLOW; URINE GLUCOSE (UA) NEGATIVE (NEGATIVE); URINE KETONE NEGATIVE (NEGATIVE); URINE LEUK ESTERASE NEGATIVE (NEGATIVE); URINE NITRITE NEGATIVE (NEGATIVE); URINE PROTEIN NEGATIVE (NEGATIVE); URINE UROBILINOGEN NEGATIVE mg/dL (0.2-1.0)
[2017-12-15 10:55] LABS: HEMATOCRIT 43.9 % (35.4-49); HEMOGLOBIN 13.8 GM/dL (11.7-16.9); MCH 27.6 pg (25.7-33.7); MCHC 31.5 g/dl (32.0-35.9); MEAN CELL VOLUME 87.8 fl (80-96); PLATELET COUNT 282 K/MM3 (134-434); WHITE BLOOD COUNT 6.7 K/mm3 (4.0-10.0)
[2017-12-15 11:18] LABS: ALBUMIN 3.2 g/dl (3.4-5.0); ALK PHOS 98 U/L (45-117); ANION GAP 5 MMOL/L (8-16); BILIRUBIN,TOTAL 0.2 mg/dL (0.2-1); BLOOD UREA NITROGEN 16 mg/dL (7-18); CALCIUM 8.5 mg/dL (8.5-10.1); CHLORIDE 107 mmol/L (98-107); CO2 29 mmol/L (21-32); CREATININE 0.9 mg/dL (0.55-1.3); GLUCOSE,RANDOM 90 mg/dL (74-106); POTASSIUM 4.4 mmol/L (3.5-5.1); SGOT/AST 10 U/L (15-37); SGPT/ALT 22 U/L (13-61); SODIUM 141 mmol/L (136-145); TOT PROT 6.1 g/dl (6.4-8.2)
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
--- NOTE | 2017-12-15 18:30 | PN ---
BHS COWS - Scale Resting Pulse: 0= [place] 80 or Below Sweatin=Flushed/Facial Moisture Restless Observation: 1= Difficult to Sit Still Pupil Size: 0= Normal to Room Light Bone or Joint Aches: 1= Mild Discomfort Runny Nose/ Eye Tearin= Nasal Congestion GI Upset > 30mins: 1= Stomach Cramp Tremor Observation of Outstretched Hands: 2= Slight Tremor Visible Yawning Observation: 1= 1-2x During Session Anxiety or Irritability: 1=Feels Anxious/Irritable Goose Flesh Skin: 0=Smooth Skin COWS Score: 10 BHS Progress Note (SOAP) Subjective: Sleep disturbance Sweats body aches constipation Objective: 12/15/17 18:28 Sleeping but arousable Not in acute distress Vital Signs Temperature 97.5 F L 12/15/17 18:16 Pulse Rate 66 12/15/17 18:16 Respiratory Rate 20 12/15/17 18:16 Blood Pressure 112/63 12/15/17 18:16 O2 Sat by Pulse Oximetry (%) Laboratory Last Values WBC 6.7 K/mm3 (4.0-10.0) 12/15/17 08:00 RBC 5.00 M/mm3 (4.00-5.60) 12/15/17 08:00 Hgb 13.8 GM/dL (11.7-16.9) 12/15/17 08:00 Hct 43.9 % (35.4-49) 12/15/17 08:00 MCV 87.8 fl (80-96) 12/15/17 08:00 MCH 27.6 pg (25.7-33.7) 12/15/17 08:00 MCHC 31.5 g/dl (32.0-35.9) L 12/15/17 08:00 RDW 13.0 % (11.9-15.9) 12/15/17 08:00 Plt Count 282 K/MM3 (134-434) 12/15/17 08:00 MPV 8.0 fl (7.5-11.1) 12/15/17 08:00 Sodium 141 mmol/L (136-145) 12/15/17 08:00 Potassium 4.4 mmol/L (3.5-5.1) 12/15/17 08:00 Chloride 107 mmol/L (98-107) 12/15/17 08:00 Carbon Dioxide 29 mmol/L (21-32) 12/15/17 08:00 Anion Gap 5 MMOL/L (8-16) L 12/15/17 08:00 BUN 16 mg/dL (7-18) 12/15/17 08:00 Creatinine 0.9 mg/dL (0.55-1.3) 12/15/17 08:00 Creat Clearance w eGFR > 60 (>60) 12/15/17 08:00 Random Glucose 90 mg/dL (74-106) 12/15/17 08:00 Calcium 8.5 mg/dL (8.5-10.1) 12/15/17 08:00 Total Bilirubin 0.2 mg/dL (0.2-1) 12/15/17 08:00 AST 10 U/L (15-37) L 12/15/17 08:00 ALT 22 U/L (13-61) 12/15/17 08:00 Alkaline Phosphatase 98 U/L (45-117) 12/15/17 08:00 Total Protein 6.1 g/dl (6.4-8.2) L 12/15/17 08:00 Albumin 3.2 g/dl (3.4-5.0) L 12/15/17 08:00 Urine Color Yellow 12/15/17 08:50 Urine Appearance Slcloudy 12/15/17 08:50 Urine pH 7.0 (5.0-8.0) D 12/15/17 08:50 Ur Specific [place] 1.026 (1.010-1.035) 12/15/17 08:50 Urine Protein Negative (NEGATIVE) 12/15/17 08:50 Urine Glucose (UA) Negative (NEGATIVE) 12/15/17 08:50 Urine Ketones Negative (NEGATIVE) 12/15/17 08:50 Urine Blood Negative (NEGATIVE) 12/15/17 08:50 Urine Nitrite Negative (NEGATIVE) 12/15/17 08:50 Urine Bilirubin Negative (<2.0 mg/dL) 12/15/17 08:50 Urine Urobilinogen Negative mg/dL (0.2-1.0) 12/15/17 08:50 Ur Leukocyte Esterase Negative (NEGATIVE) 12/15/17 08:50 RPR Titer Nonreactive (NONREACTIVE) 12/15/17 08:00 HIV 1&2 Antibody Screen Negative 12/15/17 08:00 HIV P24 Antigen Negative 12/15/17 08:00 labs noted Assessment: 12/15/17 18:30 Withdrawal sx Plan: continue detox Increase hydration
[2017-12-15] MEDS: THIAMINE HCL 100 MG TABLET (FP) PO SCH (23:03)
[2017-12-16] MEDS ORDERED: hydrOXYzine PAMOATE 25 MG CAPSULE (FP) PO ONE (08:48)
[2017-12-16] MEDS ORDERED: METHADONE HCL 5 MG TABLET (FOR DETOX USE ONLY) PO ONE (10:00)
--- NOTE | 2017-12-16 10:01 | PN ---
BHS COWS - Scale Resting Pulse: 0= [place] 80 or Below Sweatin= Chills/Flushing Restless Observation: 1= Difficult to Sit Still Pupil Size: 1= Pupils >than Normal Bone or Joint Aches: 2= Severe Diffuse Aches Runny Nose/ Eye Tearin= Nasal Congestion GI Upset > 30mins: 1= Stomach Cramp Tremor Observation of Outstretched Hands: 1= Tremor [place], Not Seen Yawning Observation: 1= 1-2x During Session Anxiety or Irritability: 1=Feels Anxious/Irritable Goose Flesh Skin: 0=Smooth Skin COWS Score: 10 S Progress Note (SOAP) Subjective: sweat tremor mild gi distress body aches Objective: 12/16/17 10:02 Vital Signs Temperature 97.2 F L 12/16/17 09:30 Pulse Rate 54 L 12/16/17 09:30 Respiratory Rate 16 12/16/17 09:30 Blood Pressure 96/65 12/16/17 09:30 O2 Sat by Pulse Oximetry (%) Laboratory Last Values WBC 6.7 K/mm3 (4.0-10.0) 12/15/17 08:00 RBC 5.00 M/mm3 (4.00-5.60) 12/15/17 08:00 Hgb 13.8 GM/dL (11.7-16.9) 12/15/17 08:00 Hct 43.9 % (35.4-49) 12/15/17 08:00 MCV 87.8 fl (80-96) 12/15/17 08:00 MCH 27.6 pg (25.7-33.7) 12/15/17 08:00 MCHC 31.5 g/dl (32.0-35.9) L 12/15/17 08:00 RDW 13.0 % (11.9-15.9) 12/15/17 08:00 Plt Count 282 K/MM3 (134-434) 12/15/17 08:00 MPV 8.0 fl (7.5-11.1) 12/15/17 08:00 Sodium 141 mmol/L (136-145) 12/15/17 08:00 Potassium 4.4 mmol/L (3.5-5.1) 12/15/17 08:00 Chloride 107 mmol/L (98-107) 12/15/17 08:00 Carbon Dioxide 29 mmol/L (21-32) 12/15/17 08:00 Anion Gap 5 MMOL/L (8-16) L 12/15/17 08:00 BUN 16 mg/dL (7-18) 12/15/17 08:00 Creatinine 0.9 mg/dL (0.55-1.3) 12/15/17 08:00 Creat Clearance w eGFR > 60 (>60) 12/15/17 08:00 Random Glucose 90 mg/dL (74-106) 12/15/17 08:00 Calcium 8.5 mg/dL (8.5-10.1) 12/15/17 08:00 Total Bilirubin 0.2 mg/dL (0.2-1) 12/15/17 08:00 AST 10 U/L (15-37) L 12/15/17 08:00 ALT 22 U/L (13-61) 12/15/17 08:00 Alkaline Phosphatase 98 U/L (45-117) 12/15/17 08:00 Total Protein 6.1 g/dl (6.4-8.2) L 12/15/17 08:00 Albumin 3.2 g/dl (3.4-5.0) L 12/15/17 08:00 Urine Color Yellow 12/15/17 08:50 Urine Appearance Slcloudy 12/15/17 08:50 Urine pH 7.0 (5.0-8.0) D 12/15/17 08:50 Ur Specific [place] 1.026 (1.010-1.035) 12/15/17 08:50 Urine Protein Negative (NEGATIVE) 12/15/17 08:50 Urine Glucose (UA) Negative (NEGATIVE) 12/15/17 08:50 Urine Ketones Negative (NEGATIVE) 12/15/17 08:50 Urine Blood Negative (NEGATIVE) 12/15/17 08:50 Urine Nitrite Negative (NEGATIVE) 12/15/17 08:50 Urine Bilirubin Negative (<2.0 mg/dL) 12/15/17 08:50 Urine Urobilinogen Negative mg/dL (0.2-1.0) 12/15/17 08:50 Ur Leukocyte Esterase Negative (NEGATIVE) 12/15/17 08:50 RPR Titer Nonreactive (NONREACTIVE) 12/15/17 08:00 HIV 1&2 Antibody Screen Negative 12/15/17 08:00 HIV P24 Antigen Negative 12/15/17 08:00 lab noted Assessment: 12/16/17 10:02 withdrawal sx Plan: continue detox
[2017-12-16] MEDS: NICOTINE 14 MG/24 HOURS TOPICAL PATCH TD SCH (10:13)
[2017-12-16] MEDS: PRENATAL VITAMINS W/ FOLIC ACID TABLET (FP) PO SCH (10:13)
[2017-12-16] MEDS ORDERED: hydrOXYzine PAMOATE 50 MG CAPSULE (FP) PO ONE (14:00)
[2017-12-16] MEDS ORDERED: BACLOFEN 10 MG TABLET (FP) PO ONE (14:00)
[2017-12-16] MEDS: THIAMINE HCL 100 MG TABLET (FP) PO SCH (23:39)
[2017-12-17] MEDS ORDERED: METHADONE HCL 10 MG TABLET (FOR DETOX USE ONLY) PO ONE (10:00)
--- NOTE | 2017-12-17 10:49 | PN ---
BHS Progress Note (SOAP) Subjective: feeling better no body ache no gi distress no tremor less sweat social with peers in day room Objective: 12/17/17 10:48 Vital Signs Temperature 97.6 F 12/17/17 09:22 Pulse Rate 53 L 12/17/17 09:22 Respiratory Rate 18 12/17/17 09:22 Blood Pressure 95/62 12/17/17 09:22 O2 Sat by Pulse Oximetry (%) Laboratory Last Values WBC 6.7 K/mm3 (4.0-10.0) 12/15/17 08:00 RBC 5.00 M/mm3 (4.00-5.60) 12/15/17 08:00 Hgb 13.8 GM/dL (11.7-16.9) 12/15/17 08:00 Hct 43.9 % (35.4-49) 12/15/17 08:00 MCV 87.8 fl (80-96) 12/15/17 08:00 MCH 27.6 pg (25.7-33.7) 12/15/17 08:00 MCHC 31.5 g/dl (32.0-35.9) L 12/15/17 08:00 RDW 13.0 % (11.9-15.9) 12/15/17 08:00 Plt Count 282 K/MM3 (134-434) 12/15/17 08:00 MPV 8.0 fl (7.5-11.1) 12/15/17 08:00 Sodium 141 mmol/L (136-145) 12/15/17 08:00 Potassium 4.4 mmol/L (3.5-5.1) 12/15/17 08:00 Chloride 107 mmol/L (98-107) 12/15/17 08:00 Carbon Dioxide 29 mmol/L (21-32) 12/15/17 08:00 Anion Gap 5 MMOL/L (8-16) L 12/15/17 08:00 BUN 16 mg/dL (7-18) 12/15/17 08:00 Creatinine 0.9 mg/dL (0.55-1.3) 12/15/17 08:00 Creat Clearance w eGFR > 60 (>60) 12/15/17 08:00 Random Glucose 90 mg/dL (74-106) 12/15/17 08:00 Calcium 8.5 mg/dL (8.5-10.1) 12/15/17 08:00 Total Bilirubin 0.2 mg/dL (0.2-1) 12/15/17 08:00 AST 10 U/L (15-37) L 12/15/17 08:00 ALT 22 U/L (13-61) 12/15/17 08:00 Alkaline Phosphatase 98 U/L (45-117) 12/15/17 08:00 Total Protein 6.1 g/dl (6.4-8.2) L 12/15/17 08:00 Albumin 3.2 g/dl (3.4-5.0) L 12/15/17 08:00 Urine Color Yellow 12/15/17 08:50 Urine Appearance Slcloudy 12/15/17 08:50 Urine pH 7.0 (5.0-8.0) D 12/15/17 08:50 Ur Specific [place] 1.026 (1.010-1.035) 12/15/17 08:50 Urine Protein Negative (NEGATIVE) 12/15/17 08:50 Urine Glucose (UA) Negative (NEGATIVE) 12/15/17 08:50 Urine Ketones Negative (NEGATIVE) 12/15/17 08:50 Urine Blood Negative (NEGATIVE) 12/15/17 08:50 Urine Nitrite Negative (NEGATIVE) 12/15/17 08:50 Urine Bilirubin Negative (<2.0 mg/dL) 12/15/17 08:50 Urine Urobilinogen Negative mg/dL (0.2-1.0) 12/15/17 08:50 Ur Leukocyte Esterase Negative (NEGATIVE) 12/15/17 08:50 RPR Titer Nonreactive (NONREACTIVE) 12/15/17 08:00 HIV 1&2 Antibody Screen Negative 12/15/17 08:00 HIV P24 Antigen Negative 12/15/17 08:00 lab noted Assessment: 12/17/17 10:49 mild withdrawal sx Plan: medically supervised detox
[2017-12-17] MEDS: PRENATAL VITAMINS W/ FOLIC ACID TABLET (FP) PO SCH (11:14)
[2017-12-17] MEDS: NICOTINE 14 MG/24 HOURS TOPICAL PATCH TD SCH (11:15)
[2017-12-17] MEDS: hydrOXYzine PAMOATE 50 MG CAPSULE (FP) PO PRN ×3 (11:28→22:26)
[2017-12-17] MEDS: THIAMINE HCL 100 MG TABLET (FP) PO SCH (22:26)
[2017-12-17] MEDS: IBUPROFEN 400 MG TABLET (FP) PO PRN (22:48)
[2017-12-18] MEDS ORDERED: METHADONE HCL 5 MG TABLET (FOR DETOX USE ONLY) PO ONE (06:00)
--- NOTE | 2017-12-18 08:23 | DS ---
[facility] Detox Discharge Summary Admission Date: 12/14/17 Discharge Date: 12/18/17 - History Present History: Alcohol Dependence, Cannabis Dependence, Cocaine Dependence, Opioid Dependence, MMTP - Physical Exam Results Vital Signs: Vital Signs Temperature 97.5 F L 12/18/17 06:17 Pulse Rate 46 L 12/18/17 06:17 Respiratory Rate 16 12/18/17 06:17 Blood Pressure 93/54 L 12/18/17 06:17 O2 Sat by Pulse Oximetry (%) - Treatment Hospital Course: Detox Protocol Followed, Detoxed Safely, Responded well, Discharged Condition Good, Rehab Referral Accepted - Medication Discharge Medications: Ambulatory Orders NK [No Known Home Medication] 12/14/17 - AMA Did Patient Leave Against Medical Advice: No (refused aftercare referred to outpatient meeting)
[2017-12-18 09:41] VITALS: BP 100/66; PULSE 69; TEMP 98.8
== END 2017-12-18 09:13 | disposition home or self-care (01) | DRG 773 ==
LOC: YASAS 14:46 → Y6N 19:07
PROC: HZ2ZZZZ Detoxification Services for Substance Abuse Treatment (ICD-10-PCS; principal; 2017-12-14)
DX: F11.23 Opioid dependence with withdrawal (principal); F10.230 Alcohol dependence with withdrawal, uncomplicated; F12.20 Cannabis dependence, uncomplicated; F17.213 Nicotine dependence, cigarettes, with withdrawal; F19.24 Other psychoactive substance dependence with psychoactive substance-induced mood disorder; J45.909 Unspecified asthma, uncomplicated; K21.9 Gastro-esophageal reflux disease without esophagitis; Z86.69 Personal history of other diseases of the nervous system and sense organs; Z87.898 Personal history of other specified conditions; Z91.5 Personal history of self-harm
CPT/HCPCS: 36415; 80053; 81003; 85027; 86593; 87389; J0475

== ENCOUNTER 2018-05-08 11:34 | Inpatient (IN) | payer OTHER ==
[2018-05-08 12:09] VITALS: BMI 21.3
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
[2018-05-08] MEDS ORDERED: BISMUTH SUBSALICYLATE 524 MG/30 ML UD PO PRN (15:32)
[2018-05-08] MEDS ORDERED: cloNIDine HCL 0.1 MG TABLET PO PRN (15:32)
[2018-05-08] MEDS ORDERED: MAGNESIUM CITRATE 300 ML BOTTLE PO PRN (15:32)
[2018-05-08] MEDS ORDERED: IBUPROFEN 400 MG TABLET (FP) PO PRN (15:32)
[2018-05-08] MEDS ORDERED: MENTHOL/PHENOL 1 EACH UD MM PRN (15:32)
[2018-05-08] MEDS ORDERED: METHOCARBAMOL 500 MG TABLET PO PRN (15:32)
[2018-05-08] MEDS ORDERED: ACETAMINOPHEN 325 MG TABLET (FP) PO PRN ×2 (15:32)
[2018-05-08] MEDS ORDERED: MAG HYDROX/AL HYDROX/SIMETH 30 ML UNIT-DOSE CUP PO PRN (15:32)
[2018-05-08] MEDS ORDERED: METHADONE HCL 10 MG TABLET (FOR DETOX USE ONLY) PO ONE ×2 (16:00→23:00)
[2018-05-08] MEDS: MAGNESIUM HYDROX 2400MG/30ML ORAL SUSPENSION 30 ML CUP PO PRN (17:24)
[2018-05-08] MEDS: NICOTINE 21 MG/24 HOURS TOPICAL PATCH TD SCH (17:48)
[2018-05-08] MEDS: THIAMINE HCL 100 MG TABLET (FP) PO SCH (22:11)
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
[2018-05-09] MEDS ORDERED: METHADONE HCL 10 MG TABLET (FOR DETOX USE ONLY) PO ONE (10:00)
--- NOTE | 2018-05-09 10:10 | PN ---
[facility] COWS - Scale Resting Pulse: 0= [place] 80 or Below Sweatin= Chills/Flushing Restless Observation: 1= Difficult to Sit Still Pupil Size: 1= Pupils >than Normal Bone or Joint Aches: 2= Severe Diffuse Aches Runny Nose/ Eye Tearin= Nasal Congestion GI Upset > 30mins: 2= Nausea/Diarrhea Tremor Observation of Outstretched Hands: 2= Slight Tremor Visible Yawning Observation: 1= 1-2x During Session Anxiety or Irritability: 2=Irritable/Anxious Goose Flesh Skin: 0=Smooth Skin COWS Score: 13 BHS Progress Note (SOAP) Subjective: alert,irritable,anxious,interrupted sleep,tremor,pain in the body and back Objective: 05/09/18 10:09 Vital Signs Temperature 97.9 F 05/09/18 09:05 Pulse Rate 62 05/09/18 09:05 Respiratory Rate 18 05/09/18 09:05 Blood Pressure 110/63 05/09/18 09:05 O2 Sat by Pulse Oximetry (%) 05/09/18 10:09 labs pending Assessment: 05/09/18 10:09 withdrawal symptom Plan: continue deox
[2018-05-09 10:26] LABS: HEMATOCRIT 40.4 % (35.4-49); HEMOGLOBIN 13.8 GM/dL (11.7-16.9); MCH 30.2 pg (25.7-33.7); MCHC 34.3 g/dl (32.0-35.9); MEAN CELL VOLUME 88.1 fl (80-96); MEAN PLT VOLUME 8.9 fl (7.5-11.1); PLATELET COUNT 258 K/MM3 (134-434); RBC 4.58 M/mm3 (4.00-5.60); RDW 13.6 % (11.9-15.9); WHITE BLOOD COUNT 6.3 K/mm3 (4.0-10.0)
[2018-05-09 10:41] LABS: ALBUMIN 3.6 g/dl (3.4-5.0); ALK PHOS 79 U/L (45-117); ANION GAP 7 MMOL/L (8-16); BILIRUBIN,TOTAL 0.3 mg/dL (0.2-1); BLOOD UREA NITROGEN 11 mg/dL (7-18); CALCIUM 8.8 mg/dL (8.5-10.1); CHLORIDE 109 mmol/L (98-107); CO2 25 mmol/L (21-32); CREATININE 1.2 mg/dL (0.55-1.3); GLUCOSE,RANDOM 110 mg/dL (74-106); POTASSIUM 4.3 mmol/L (3.5-5.1); SGOT/AST 26 U/L (15-37); SGPT/ALT 35 U/L (13-61); SODIUM 141 mmol/L (136-145); TOT PROT 6.6 g/dl (6.4-8.2)
[2018-05-09] MEDS: PRENATAL VITAMINS W/ FOLIC ACID TABLET (FP) PO SCH (10:42)
[2018-05-09] MEDS: NICOTINE 21 MG/24 HOURS TOPICAL PATCH TD SCH (10:42)
[2018-05-09] MEDS: MAGNESIUM HYDROX 2400MG/30ML ORAL SUSPENSION 30 ML CUP PO PRN (10:45)
[2018-05-09] MEDS ORDERED: FLU VACCINE QUAD 60 MCG/0.5 ML (MDV 18-19) IM ONE (12:00)
[2018-05-09] MEDS: hydrOXYzine PAMOATE 25 MG CAPSULE (FP) PO PRN ×2 (15:06→20:18)
[2018-05-09] MEDS: MELATONIN 5 MG TABLETS PO PRN (21:38)
[2018-05-09] MEDS: THIAMINE HCL 100 MG TABLET (FP) PO SCH (23:10)
[2018-05-10] MEDS: hydrOXYzine PAMOATE 25 MG CAPSULE (FP) PO PRN ×3 (06:36→18:29)
[2018-05-10] MEDS ORDERED: METHADONE HCL 10 MG TABLET (FOR DETOX USE ONLY) PO ONE (10:00)
[2018-05-10] MEDS: NICOTINE 21 MG/24 HOURS TOPICAL PATCH TD SCH (10:38)
[2018-05-10] MEDS: PRENATAL VITAMINS W/ FOLIC ACID TABLET (FP) PO SCH (10:38)
--- NOTE | 2018-05-10 12:14 | PN ---
[facility] COWS - Scale Resting Pulse: 0= [place] 80 or Below Sweatin=Flushed/Facial Moisture Restless Observation: 1= Difficult to Sit Still Pupil Size: 0= Normal to Room Light Bone or Joint Aches: 2= Severe Diffuse Aches Runny Nose/ Eye Tearin= Runny Nose/Eyes GI Upset > 30mins: 0= None Tremor Observation of Outstretched Hands: 1= Tremor [place], Not Seen Yawning Observation: 2= >3x During Session Anxiety or Irritability: 2=Irritable/Anxious Goose Flesh Skin: 0=Smooth Skin COWS Score: 12 BHS Progress Note (SOAP) Subjective: sweats shakes interrupted sleep body aches irritable agitation Objective: 05/10/18 12:13 Vital Signs Temperature 97.2 F L 05/10/18 09:46 Pulse Rate 59 L 05/10/18 09:46 Respiratory Rate 18 05/10/18 09:46 Blood Pressure 108/59 L 05/10/18 09:46 O2 Sat by Pulse Oximetry (%) Laboratory Tests 05/09/18 05/09/18 05/09/18 06:00 06:00 06:00 WBC 6.3 RBC 4.58 Hgb 13.8 Hct 40.4 MCV 88.1 MCH 30.2 MCHC 34.3 RDW 13.6 Plt Count 258 MPV 8.9 D Sodium 141 Potassium 4.3 Chloride 109 H Carbon Dioxide 25 Anion Gap 7 L BUN 11 Creatinine 1.2 Creat Clearance w eGFR > 60 Random Glucose 110 H Calcium 8.8 Total Bilirubin 0.3 AST 26 ALT 35 Alkaline Phosphatase 79 Total Protein 6.6 Albumin 3.6 RPR Titer HIV 1&2 Antibody Screen Negative HIV P24 Antigen Negative 05/09/18 06:00 WBC RBC Hgb Hct MCV MCH MCHC RDW Plt Count MPV Sodium Potassium Chloride Carbon Dioxide Anion Gap BUN Creatinine Creat Clearance w eGFR Random Glucose Calcium Total Bilirubin AST ALT Alkaline Phosphatase Total Protein Albumin RPR Titer Nonreactive HIV 1&2 Antibody Screen HIV P24 Antigen aaox3 ambulating no acute distress Assessment: 05/10/18 12:13 withdrawal sx Plan: continue detox increase fluids
[2018-05-10] MEDS: NICOTINE POLACRILEX 2 MG GUM BUC PRN (18:30)
[2018-05-10] MEDS: MELATONIN 5 MG TABLETS PO PRN (22:05)
[2018-05-10] MEDS: THIAMINE HCL 100 MG TABLET (FP) PO SCH (22:06)
[2018-05-11] MEDS ORDERED: METHADONE HCL 10 MG TABLET (FOR DETOX USE ONLY) PO ONE (10:00)
[2018-05-11] MEDS: PRENATAL VITAMINS W/ FOLIC ACID TABLET (FP) PO SCH (10:34)
[2018-05-11] MEDS: NICOTINE 21 MG/24 HOURS TOPICAL PATCH TD SCH (10:34)
[2018-05-11] MEDS: hydrOXYzine PAMOATE 25 MG CAPSULE (FP) PO PRN (12:54)
--- NOTE | 2018-05-11 13:24 | PN ---
S Progress Note (SOAP) Subjective: Interrupted sleep, pain and restlessness Objective: 05/11/18 13:23 Last Vital Signs Temp Pulse Resp BP Pulse Ox 97.7 F 59 L 18 111/67 05/11/18 10:09 05/11/18 10:09 05/11/18 10:09 05/11/18 10:09 Laboratory Last Values WBC 6.3 K/mm3 (4.0-10.0) 05/09/18 06:00 RBC 4.58 M/mm3 (4.00-5.60) 05/09/18 06:00 Hgb 13.8 GM/dL (11.7-16.9) 05/09/18 06:00 Hct 40.4 % (35.4-49) 05/09/18 06:00 MCV 88.1 fl (80-96) 05/09/18 06:00 MCH 30.2 pg (25.7-33.7) 05/09/18 06:00 MCHC 34.3 g/dl (32.0-35.9) 05/09/18 06:00 RDW 13.6 % (11.9-15.9) 05/09/18 06:00 Plt Count 258 K/MM3 (134-434) 05/09/18 06:00 MPV 8.9 fl (7.5-11.1) D 05/09/18 06:00 Sodium 141 mmol/L (136-145) 05/09/18 06:00 Potassium 4.3 mmol/L (3.5-5.1) 05/09/18 06:00 Chloride 109 mmol/L (98-107) H 05/09/18 06:00 Carbon Dioxide 25 mmol/L (21-32) 05/09/18 06:00 Anion Gap 7 MMOL/L (8-16) L 05/09/18 06:00 BUN 11 mg/dL (7-18) 05/09/18 06:00 Creatinine 1.2 mg/dL (0.55-1.3) 05/09/18 06:00 Creat Clearance w eGFR > 60 (>60) 05/09/18 06:00 Random Glucose 110 mg/dL (74-106) H 05/09/18 06:00 Calcium 8.8 mg/dL (8.5-10.1) 05/09/18 06:00 Total Bilirubin 0.3 mg/dL (0.2-1) 05/09/18 06:00 AST 26 U/L (15-37) 05/09/18 06:00 ALT 35 U/L (13-61) 05/09/18 06:00 Alkaline Phosphatase 79 U/L (45-117) 05/09/18 06:00 Total Protein 6.6 g/dl (6.4-8.2) 05/09/18 06:00 Albumin 3.6 g/dl (3.4-5.0) 05/09/18 06:00 RPR Titer Nonreactive (NONREACTIVE) 05/09/18 06:00 HIV 1&2 Antibody Screen Negative 05/09/18 06:00 HIV P24 Antigen Negative 05/09/18 06:00 Labs noted Assessment: 05/11/18 13:23 Withdrawal sx Plan: Continue detox
[2018-05-11] MEDS: NICOTINE POLACRILEX 2 MG GUM BUC PRN (14:02)
[2018-05-11] MEDS: hydrOXYzine PAMOATE 50 MG CAPSULE (FP) PO PRN (17:19)
[2018-05-11] MEDS: THIAMINE HCL 100 MG TABLET (FP) PO SCH (22:05)
[2018-05-11] MEDS: MELATONIN 5 MG TABLETS PO PRN (22:05)
[2018-05-12] MEDS: hydrOXYzine PAMOATE 50 MG CAPSULE (FP) PO PRN ×3 (04:25→17:15)
[2018-05-12] MEDS ORDERED: METHADONE HCL 5 MG TABLET (FOR DETOX USE ONLY) PO ONE (06:00)
--- NOTE | 2018-05-12 09:49 | PN ---
[facility] Progress Note Note: Vital Signs Temperature 97.7 F 05/12/18 09:33 Pulse Rate 53 L 05/12/18 09:33 Respiratory Rate 20 05/12/18 09:33 Blood Pressure 105/59 L 05/12/18 09:33 O2 Sat by Pulse Oximetry (%) c/o of feeling anxious on vistarail with no help neruontin 100 mg tid added reports will go to [facility] in the morning for rehab continue to monitor
[2018-05-12] MEDS: NICOTINE 21 MG/24 HOURS TOPICAL PATCH TD SCH (10:36)
[2018-05-12] MEDS: PRENATAL VITAMINS W/ FOLIC ACID TABLET (FP) PO SCH (10:36)
[2018-05-12] MEDS: NICOTINE POLACRILEX 2 MG GUM BUC PRN (11:47)
[2018-05-12] MEDS: GABAPENTIN 100 MG CAPSULE (FP) PO SCH ×2 (14:04→21:56)
[2018-05-12] MEDS: MELATONIN 5 MG TABLETS PO PRN (21:56)
[2018-05-12] MEDS: THIAMINE HCL 100 MG TABLET (FP) PO SCH (21:56)
[2018-05-13] MEDS: hydrOXYzine PAMOATE 50 MG CAPSULE (FP) PO PRN (05:38)
[2018-05-13] MEDS: GABAPENTIN 100 MG CAPSULE (FP) PO SCH (05:38)
--- NOTE | 2018-05-13 08:32 | DS ---
[facility] Detox Discharge Summary Admission Date: 05/08/18 Discharge Date: 05/13/18 - History Present History: Alcohol Dependence, Opioid Dependence - Physical Exam Results Vital Signs: Vital Signs Temperature 97 F L 05/13/18 06:44 Pulse Rate 54 L 05/13/18 06:44 Respiratory Rate 18 05/13/18 06:44 Blood Pressure 122/54 L 05/13/18 06:44 O2 Sat by Pulse Oximetry (%) - Treatment Hospital Course: Detox Protocol Followed, Detoxed Safely, Responded well, Discharged Condition Good, Rehab Referral Accepted - Medication Discharge Medications: Ambulatory Orders NK [No Known Home Medication] 12/14/17 - Diagnosis (1) History of drug overdose Current Visit: Yes Status: Acute (2) Opioid dependence with withdrawal Current Visit: Yes Status: Chronic (3) Mood disorder Current Visit: Yes Status: Chronic (4) Weight decreased Current Visit: No Status: Active (5) Alcohol dependence with uncomplicated withdrawal Current Visit: Yes Status: Chronic (6) Alcohol-induced mood disorder Current Visit: No Status: Acute (7) Cannabis dependence Current Visit: Yes Status: Chronic (8) Cocaine dependence Current Visit: Yes Status: Chronic Qualifiers: Substance use status: uncomplicated Qualified Code(s): F14.20 - Cocaine dependence, uncomplicated (9) Substance-induced sleep disorder Current Visit: No Status: Acute (10) Anxiety Current Visit: No Status: Chronic (11) Anxiety and depression Current Visit: No Status: Chronic (12) Asthma Current Visit: No Status: Chronic (13) Drug withdrawal seizure Current Visit: No Status: Chronic Qualifiers: Complication of substance-induced condition: with unspecified complication Qualified Code(s): F19.239 - Other psychoactive substance dependence with withdrawal, unspecified; R56.9 - Unspecified convulsions; R56.9 - Unspecified convulsions; R56.9 - Unspecified convulsions; R56.9 - Unspecified convulsions (14) Drug-induced mood disorder Current Visit: No Status: Chronic (15) Methadone maintenance therapy patient Current Visit: Yes Status: Chronic (16) Nicotine dependence Current Visit: Yes Status: Chronic Qualifiers: Nicotine product type: cigarettes Substance use status: uncomplicated Qualified Code(s): F17.210 - Nicotine dependence, cigarettes, uncomplicated (17) Substance induced mood disorder Current Visit: No Status: Chronic (18) Substance-induced sleep disorder Current Visit: No Status: Chronic (19) depression Current Visit: No Status: Chronic
[2018-05-13 09:15] VITALS: BP 133/60; PULSE 73; TEMP 97.9
[2018-05-13] MEDS: PRENATAL VITAMINS W/ FOLIC ACID TABLET (FP) PO SCH (10:13)
[2018-05-13] MEDS: NICOTINE 21 MG/24 HOURS TOPICAL PATCH TD SCH (10:14)
== END 2018-05-13 12:04 | disposition home or self-care (01) | DRG 773 ==
LOC: YASAS 11:34 → Y6N 15:26
PROVIDERS: ADMIT Surgery; ATTEND Surgery
PROC: HZ2ZZZZ Detoxification Services for Substance Abuse Treatment (ICD-10-PCS; principal; 2018-05-08)
DX: F11.23 Opioid dependence with withdrawal (principal); F10.230 Alcohol dependence with withdrawal, uncomplicated; F14.20 Cocaine dependence, uncomplicated; F12.20 Cannabis dependence, uncomplicated; F19.20 Other psychoactive substance dependence, uncomplicated; F17.210 Nicotine dependence, cigarettes, uncomplicated; F19.24 Other psychoactive substance dependence with psychoactive substance-induced mood disorder; F10.24 Alcohol dependence with alcohol-induced mood disorder; F19.282 Other psychoactive substance dependence with psychoactive substance-induced sleep disorder; F39 Unspecified mood [affective] disorder; F41.8 Other specified anxiety disorders; F32.9 Major depressive disorder, single episode, unspecified; J45.909 Unspecified asthma, uncomplicated; R63.4 Abnormal weight loss; Z68.21 Body mass index [BMI] 21.0-21.9, adult; Z91.5 Personal history of self-harm
CPT/HCPCS: 36415; 80053; 85027; 86593; 87389

== ENCOUNTER 2018-06-18 14:16 | Emergency (ER) | payer OTHER ==
--- NOTE | 2018-06-18 14:29 | PDOC ---
Rapid Medical Evaluation Chief Complaint: Pain Time Seen by Provider: 06/18/18 14:27 Medical Evaluation: Allergies Allergy/AdvReac Type Severity Reaction Status Date / Time No Known Allergies Allergy Verified 05/08/18 12:44 06/18/18 14:28 I did a brief in person evaluation on this patient. CC: left thumb pain HPI: Pt is a 38 YO male who states that 3-4 days ago he injured his first digit left hand while at work. Pt is right hand dominant. PE: Skin: Clear Lungs: Clear Heart:RRR Abd: soft, non tender MS: Moves all extremities without difficulty Neuro: alert Psych: appropriate affect. I have ordered: thumb xray Pt will proceed to [facility] for further evaluation. Discharge Disposition - Diagnosis Thumb sprain Qualifiers: Encounter type: initial encounter Sprain of finger site: unspecified site Laterality: left Qualified Code(s): S63.602A - Unspecified sprain of left thumb , initial encounter - Referrals - Patient Instructions - Post Discharge Activity
[2018-06-18 14:31] VITALS: BP 91/53; PULSE 79; TEMP 98.4; BMI 21.1
[2018-06-18] MEDS ORDERED: IBUPROFEN 600 MG TABLET (FP) PO ONE ×2 (15:01→15:05)
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
== END 2018-06-18 15:08 | disposition home or self-care (01) ==
LOC: JERFT 14:16
DX: S67.02XA Crushing injury of left thumb, initial encounter (principal); W22.8XXA Striking against or struck by other objects, initial encounter; W23.0XXA Caught, crushed, jammed, or pinched between moving objects, initial encounter; Y93.E9 Activity, other interior property and clothing maintenance; Y92.89 Other specified places as the place of occurrence of the external cause; Y99.8 Other external cause status
CPT/HCPCS: 73140-TC-LT-FY; 99281-25

== ENCOUNTER 2018-07-01 05:07 | Inpatient (IN) | payer OTHER ==
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
[2018-07-01] MEDS ORDERED: P-EPHED 60MG/TRIPROLIDI 2.5MG TABLET PO PRN (06:18)
[2018-07-01] MEDS ORDERED: MENTHOL/PHENOL 1 EACH UD MM PRN (06:18)
[2018-07-01] MEDS ORDERED: MAGNESIUM CITRATE 300 ML BOTTLE PO PRN (06:18)
[2018-07-01] MEDS ORDERED: IBUPROFEN 400 MG TABLET (FP) PO PRN ×2 (06:18)
[2018-07-01] MEDS ORDERED: NALOXONE HCL 0.4 MG/ML VIAL IVPUSH PRN (06:18)
[2018-07-01] MEDS ORDERED: ONDANSETRON *ODT* 4 MG TABLET SL PRN (06:18)
[2018-07-01] MEDS ORDERED: BISMUTH SUBSALICYLATE 524 MG/30 ML UD PO PRN (06:18)
[2018-07-01] MEDS ORDERED: DICYCLOMINE HCL 10 MG CAPSULE PO PRN (06:18)
[2018-07-01] MEDS ORDERED: guaiFENesin 200 MG/10 ML 10 ML UNIT-DOSE CUPS PO PRN (06:18)
[2018-07-01] MEDS ORDERED: MAGNESIUM HYDROX 2400MG/30ML ORAL SUSPENSION 30 ML CUP PO PRN (06:18)
[2018-07-01] MEDS ORDERED: ACETAMINOPHEN 325 MG TABLET (FP) PO PRN ×2 (06:18)
[2018-07-01] MEDS ORDERED: MAG HYDROX/AL HYDROX/SIMETH 30 ML UNIT-DOSE CUP PO PRN (06:18)
[2018-07-01] MEDS ORDERED: METHADONE HCL 10 MG TABLET (FOR DETOX USE ONLY) PO ONE ×2 (06:23→23:00)
[2018-07-01] MEDS ORDERED: ALBUTEROL SO4 0.083% IH SOL 2.5 MG/3 ML VIAL.NEB. NEB PRN (06:24)
[2018-07-01 06:30] VITALS: BMI 20.4
[2018-07-01 10:19] LABS: HEMATOCRIT 45.4 % (35.4-49); HEMOGLOBIN 14.9 GM/dL (11.7-16.9); MCH 28.8 pg (25.7-33.7); MCHC 32.8 g/dl (32.0-35.9); MEAN CELL VOLUME 87.7 fl (80-96); MEAN PLT VOLUME 7.8 fl (7.5-11.1); PLATELET COUNT 331 K/MM3 (134-434); RBC 5.18 M/mm3 (4.00-5.60); RDW 13.4 % (11.9-15.9); WHITE BLOOD COUNT 6.6 K/mm3 (4.0-10.0)
[2018-07-01 10:30] LABS: ALBUMIN 3.5 g/dl (3.4-5.0); ALK PHOS 99 U/L (45-117); ANION GAP 6 MMOL/L (8-16); BILIRUBIN,TOTAL 0.4 mg/dL (0.2-1); BLOOD UREA NITROGEN 16 mg/dL (7-18); CALCIUM 9.1 mg/dL (8.5-10.1); CHLORIDE 106 mmol/L (98-107); CO2 26 mmol/L (21-32); GLUCOSE,RANDOM 90 mg/dL (74-106); POTASSIUM 4.1 mmol/L (3.5-5.1); SGOT/AST 22 U/L (15-37); SGPT/ALT 34 U/L (13-61); SODIUM 138 mmol/L (136-145); TOT PROT 7.2 g/dl (6.4-8.2)
[2018-07-01] MEDS: PRENATAL VITAMINS W/ FOLIC ACID TABLET (FP) PO SCH (10:30)
[2018-07-01] MEDS: NICOTINE 14 MG/24 HOURS TOPICAL PATCH TD SCH (10:30)
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
[2018-07-01] MEDS: NICOTINE POLACRILEX 2 MG GUM BUC PRN (19:17)
[2018-07-01] MEDS: THIAMINE HCL 100 MG TABLET (FP) PO SCH (22:44)
[2018-07-01] MEDS: MELATONIN 5 MG TABLETS PO PRN (22:44)
[2018-07-02] MEDS: NICOTINE POLACRILEX 2 MG GUM BUC PRN ×2 (06:49→14:42)
[2018-07-02] MEDS: hydrOXYzine PAMOATE 25 MG CAPSULE (FP) PO PRN ×2 (06:50→13:36)
[2018-07-02] MEDS ORDERED: METHADONE HCL 5 MG TABLET (FOR DETOX USE ONLY) PO ONE (10:00)
--- NOTE | 2018-07-02 10:15 | PN ---
S COWS - Scale Resting Pulse: 0= [place] 80 or Below Sweatin= Chills/Flushing Restless Observation: 1= Difficult to Sit Still Pupil Size: 1= Pupils >than Normal Bone or Joint Aches: 2= Severe Diffuse Aches Runny Nose/ Eye Tearin= Runny Nose/Eyes GI Upset > 30mins: 2= Nausea/Diarrhea Tremor Observation of Outstretched Hands: 2= Slight Tremor Visible Yawning Observation: 1= 1-2x During Session Anxiety or Irritability: 2=Irritable/Anxious Goose Flesh Skin: 0=Smooth Skin COWS Score: 14 S Progress Note (SOAP) Subjective: alert,irritable,anxious,interrupted sleep,pain in the body and back Objective: 07/02/18 10:14 Vital Signs Temperature 97.9 F 07/02/18 08:11 Pulse Rate 48 L 07/02/18 08:11 Respiratory Rate 16 07/02/18 08:11 Blood Pressure 113/64 07/02/18 08:11 O2 Sat by Pulse Oximetry (%) 07/02/18 10:14 Laboratory Last Values WBC 6.6 K/mm3 (4.0-10.0) 07/01/18 07:00 RBC 5.18 M/mm3 (4.00-5.60) 07/01/18 07:00 Hgb 14.9 GM/dL (11.7-16.9) 07/01/18 07:00 Hct 45.4 % (35.4-49) 07/01/18 07:00 MCV 87.7 fl (80-96) 07/01/18 07:00 MCH 28.8 pg (25.7-33.7) 07/01/18 07:00 MCHC 32.8 g/dl (32.0-35.9) 07/01/18 07:00 RDW 13.4 % (11.9-15.9) 07/01/18 07:00 Plt Count 331 K/MM3 (134-434) D 07/01/18 07:00 MPV 7.8 fl (7.5-11.1) D 07/01/18 07:00 Sodium 138 mmol/L (136-145) 07/01/18 07:00 Potassium 4.1 mmol/L (3.5-5.1) 07/01/18 07:00 Chloride 106 mmol/L (98-107) 07/01/18 07:00 Carbon Dioxide 26 mmol/L (21-32) 07/01/18 07:00 Anion Gap 6 MMOL/L (8-16) L 07/01/18 07:00 BUN 16 mg/dL (7-18) 07/01/18 07:00 Creatinine 1.0 mg/dL (0.55-1.3) 07/01/18 07:00 Creat Clearance w eGFR 84.08 (>60) 07/01/18 07:00 Random Glucose 90 mg/dL (74-106) 07/01/18 07:00 Calcium 9.1 mg/dL (8.5-10.1) 07/01/18 07:00 Total Bilirubin 0.4 mg/dL (0.2-1) 07/01/18 07:00 AST 22 U/L (15-37) 07/01/18 07:00 ALT 34 U/L (13-61) 07/01/18 07:00 Alkaline Phosphatase 99 U/L (45-117) 07/01/18 07:00 Total Protein 7.2 g/dl (6.4-8.2) 07/01/18 07:00 Albumin 3.5 g/dl (3.4-5.0) 07/01/18 07:00 RPR Titer Nonreactive (NONREACTIVE) 07/01/18 07:00 HIV 1&2 Antibody Screen Negative 07/01/18 08:20 HIV P24 Antigen Negative 07/01/18 08:20 Assessment: 07/02/18 10:15 withdrawal symptom Plan: continue detox
[2018-07-02] MEDS: PRENATAL VITAMINS W/ FOLIC ACID TABLET (FP) PO SCH (10:59)
[2018-07-02] MEDS: NICOTINE 14 MG/24 HOURS TOPICAL PATCH TD SCH (10:59)
[2018-07-02 12:30] LABS: URINE APPEARANCE CLEAR; URINE BILIRUBIN NEGATIVE (NEGATIVE); URINE COLOR YELLOW; URINE GLUCOSE (UA) NEGATIVE (NEGATIVE); URINE KETONE NEGATIVE (NEGATIVE); URINE LEUK ESTERASE NEGATIVE (NEGATIVE); URINE NITRITE NEGATIVE (NEGATIVE); URINE PROTEIN NEGATIVE (NEGATIVE); URINE UROBILINOGEN 0.2 mg/dL (0.2-1.0)
[2018-07-02] MEDS: cloNIDine HCL 0.1 MG TABLET PO PRN (13:36)
[2018-07-02] MEDS: THIAMINE HCL 100 MG TABLET (FP) PO SCH (22:22)
[2018-07-03] MEDS: hydrOXYzine PAMOATE 25 MG CAPSULE (FP) PO PRN ×3 (07:12→20:19)
[2018-07-03] MEDS: METHOCARBAMOL 500 MG TABLET PO PRN ×2 (09:35→18:41)
[2018-07-03] MEDS: cloNIDine HCL 0.1 MG TABLET PO PRN ×2 (09:35→18:41)
[2018-07-03] MEDS ORDERED: METHADONE HCL 10 MG TABLET (FOR DETOX USE ONLY) PO ONE (10:00)
[2018-07-03] MEDS: NICOTINE 14 MG/24 HOURS TOPICAL PATCH TD SCH (10:42)
[2018-07-03] MEDS: PRENATAL VITAMINS W/ FOLIC ACID TABLET (FP) PO SCH (10:42)
--- NOTE | 2018-07-03 16:49 | PN ---
[facility] COWS - Scale Resting Pulse: 0= [place] 80 or Below Sweatin= Chills/Flushing Restless Observation: 1= Difficult to Sit Still Pupil Size: 0= Normal to Room Light Bone or Joint Aches: 2= Severe Diffuse Aches Runny Nose/ Eye Tearin= None GI Upset > 30mins: 0= None Tremor Observation of Outstretched Hands: 0= None Yawning Observation: 1= 1-2x During Session Anxiety or Irritability: 2=Irritable/Anxious Goose Flesh Skin: 3=Piloerection COWS Score: 10 [facility] Progress Note (SOAP) Subjective: Anxious, Interrupted sleep, Body Aches. Objective: PATIENT A & O X 3. IN NO ACUTE DISTRESS. 07/03/18 16:50 Vital Signs Temperature 97.7 F 07/03/18 13:47 Pulse Rate 73 07/03/18 13:47 Respiratory Rate 20 07/03/18 13:47 Blood Pressure 124/75 07/03/18 13:47 O2 Sat by Pulse Oximetry (%) Laboratory Tests 07/01/18 07/01/18 07/01/18 07:00 07:00 07:00 WBC 6.6 RBC 5.18 Hgb 14.9 Hct 45.4 MCV 87.7 MCH 28.8 MCHC 32.8 RDW 13.4 Plt Count 331 D MPV 7.8 D Sodium 138 Potassium 4.1 Chloride 106 Carbon Dioxide 26 Anion Gap 6 L BUN 16 Creatinine 1.0 Creat Clearance w eGFR 84.08 Random Glucose 90 Calcium 9.1 Total Bilirubin 0.4 AST 22 ALT 34 Alkaline Phosphatase 99 Total Protein 7.2 Albumin 3.5 Urine Color Urine Appearance Urine pH Ur Specific Dawn Urine Protein Urine Glucose (UA) Urine Ketones Urine Blood Urine Nitrite Urine Bilirubin Urine Urobilinogen Ur Leukocyte Esterase RPR Titer Nonreactive HIV 1&2 Antibody Screen HIV P24 Antigen 07/01/18 07/02/18 08:20 10:00 WBC RBC Hgb Hct MCV MCH MCHC RDW Plt Count MPV Sodium Potassium Chloride Carbon Dioxide Anion Gap BUN Creatinine Creat Clearance w eGFR Random Glucose Calcium Total Bilirubin AST ALT Alkaline Phosphatase Total Protein Albumin Urine Color Yellow Urine Appearance Clear Urine pH 6.0 Ur Specific Dawn 1.022 Urine Protein Negative Urine Glucose (UA) Negative Urine Ketones Negative Urine Blood Negative Urine Nitrite Negative Urine Bilirubin Negative Urine Urobilinogen 0.2 Ur Leukocyte Esterase Negative RPR Titer HIV 1&2 Antibody Screen Negative HIV P24 Antigen Negative LABS NOTED. Assessment: 07/03/18 16:50 WITHDRAWAL SYMPTOMS. Plan: CONTINUE DETOX.
[2018-07-03] MEDS: NICOTINE POLACRILEX 2 MG GUM BUC PRN (20:21)
[2018-07-03] MEDS: THIAMINE HCL 100 MG TABLET (FP) PO SCH (21:28)
[2018-07-03] MEDS: MELATONIN 5 MG TABLETS PO PRN (21:28)
[2018-07-04] MEDS ORDERED: METHADONE HCL 5 MG TABLET (FOR DETOX USE ONLY) PO ONE (06:00)
--- NOTE | 2018-07-04 08:34 | DS ---
[facility] Detox Discharge Summary Admission Date: 07/01/18 Discharge Date: 07/04/18 - History Present History: Alcohol Dependence, Cannabis Dependence, Cocaine Dependence, MMTP - Physical Exam Results Vital Signs: Vital Signs Temperature 99.9 F H 07/03/18 21:32 Pulse Rate 80 07/03/18 21:32 Respiratory Rate 18 07/04/18 03:30 Blood Pressure 131/71 07/03/18 21:32 O2 Sat by Pulse Oximetry (%) - Treatment Hospital Course: Detox Protocol Followed, Detoxed Safely, Responded well, Discharged Condition Good, Rehab Referral Accepted - Medication Discharge Medications: Ambulatory Orders Ibuprofen [Motrin -] 600 mg PO TID #30 tablet 06/18/18 - Diagnosis (1) Weight decreased Current Visit: Yes Status: Active (2) Cannabis dependence Current Visit: Yes Status: Chronic (3) Cocaine dependence Current Visit: Yes Status: Chronic Qualifiers: Substance use status: uncomplicated Qualified Code(s): F14.20 - Cocaine dependence, uncomplicated (4) Substance induced mood disorder Current Visit: Yes Status: Acute (5) Substance-induced sleep disorder Current Visit: Yes Status: Acute (6) Asthma Current Visit: Yes Status: Chronic (7) Nicotine dependence Current Visit: Yes Status: Chronic Qualifiers: Nicotine product type: cigarettes Substance use status: uncomplicated Qualified Code(s): F17.210 - Nicotine dependence, cigarettes, uncomplicated (8) History of drug overdose Current Visit: Yes Status: Suspected (9) Alcohol dependence with uncomplicated withdrawal Current Visit: Yes Status: Chronic (10) Alcohol-induced mood disorder Current Visit: No Status: Acute (11) Substance-induced sleep disorder Current Visit: No Status: Acute (12) Anxiety and depression Current Visit: No Status: Chronic (13) Drug withdrawal seizure Current Visit: No Status: Chronic Qualifiers: Complication of substance-induced condition: with unspecified complication Qualified Code(s): F19.239 - Other psychoactive substance dependence with withdrawal, unspecified; R56.9 - Unspecified convulsions; R56.9 - Unspecified convulsions; R56.9 - Unspecified convulsions; R56.9 - Unspecified convulsions (14) Drug-induced mood disorder Current Visit: No Status: Chronic (15) Methadone maintenance therapy patient Current Visit: Yes Status: Chronic (16) Mood disorder Current Visit: No Status: Chronic - AMA Did Patient Leave Against Medical Advice: No ([facility])
[2018-07-04 09:16] VITALS: BP 100/60; PULSE 69; TEMP 97.5
== END 2018-07-04 09:12 | disposition home or self-care (01) | DRG 773 ==
LOC: YASAS 05:07 → Y6N 05:56
PROVIDERS: ADMIT Surgery; ATTEND Surgery
PROC: HZ2ZZZZ Detoxification Services for Substance Abuse Treatment (ICD-10-PCS; principal; 2018-07-01)
DX: F11.20 Opioid dependence, uncomplicated (principal); F10.230 Alcohol dependence with withdrawal, uncomplicated; F14.20 Cocaine dependence, uncomplicated; F12.20 Cannabis dependence, uncomplicated; F10.24 Alcohol dependence with alcohol-induced mood disorder; F19.24 Other psychoactive substance dependence with psychoactive substance-induced mood disorder; F19.282 Other psychoactive substance dependence with psychoactive substance-induced sleep disorder; F41.8 Other specified anxiety disorders; F32.9 Major depressive disorder, single episode, unspecified; F39 Unspecified mood [affective] disorder; G40.509 Epileptic seizures related to external causes, not intractable, without status epilepticus; J45.909 Unspecified asthma, uncomplicated; R63.4 Abnormal weight loss; Z68.20 Body mass index [BMI] 20.0-20.9, adult; Z91.5 Personal history of self-harm; Z59.0 Homelessness
CPT/HCPCS: 36415; 80053; 81003; 85027; 86593; 87389; J0735

== ENCOUNTER 2018-09-21 21:12 | Inpatient (IN) | payer OTHER | END 2018-09-24 09:37 | disposition home or self-care (01) | LOC: YASAS 21:12 → Y6N 22:06 | PROC: HZ2ZZZZ Detoxification Services for Substance Abuse Treatment (ICD-10-PCS; principal; 2018-09-21) | DX: F11.23 Opioid dependence with withdrawal (principal); F10.230 Alcohol dependence with withdrawal, uncomplicated; F14.20 Cocaine dependence, uncomplicated; F12.20 Cannabis dependence, uncomplicated; F17.210 Nicotine dependence, cigarettes, uncomplicated; F19.280 Other psychoactive substance dependence with psychoactive substance-induced anxiety disorder; F19.282 Other psychoactive substance dependence with psychoactive substance-induced sleep disorder; F19.24 Other psychoactive substance dependence with psychoactive substance-induced mood disorder; F41.8 Other specified anxiety disorders; F32.9 Major depressive disorder, single episode, unspecified; J45.909 Unspecified asthma, uncomplicated; Z86.69 Personal history of other diseases of the nervous system and sense organs ==

== ENCOUNTER 2018-11-25 01:09 | Inpatient (IN) | payer OTHER ==
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
[2018-11-25] MEDS ORDERED: hydrOXYzine PAMOATE 25 MG CAPSULE (FP) PO PRN (02:29)
[2018-11-25] MEDS ORDERED: IBUPROFEN 400 MG TABLET (FP) PO PRN (02:29)
[2018-11-25] MEDS ORDERED: METHOCARBAMOL 500 MG TABLET PO PRN (02:29)
[2018-11-25] MEDS ORDERED: BISMUTH SUBSALICYLATE 524 MG/30 ML UD PO PRN (02:29)
[2018-11-25] MEDS ORDERED: MAGNESIUM CITRATE 300 ML BOTTLE PO PRN (02:29)
[2018-11-25] MEDS ORDERED: METHADONE HCL 10 MG TABLET (FOR DETOX USE ONLY) PO ONE (02:29)
[2018-11-25] MEDS ORDERED: ACETAMINOPHEN 325 MG TABLET (FP) PO PRN ×2 (02:29)
[2018-11-25] MEDS ORDERED: MELATONIN 5 MG TABLETS PO PRN ×2 (02:29→10:55)
[2018-11-25] MEDS ORDERED: cloNIDine HCL 0.1 MG TABLET PO PRN (02:29)
[2018-11-25] MEDS ORDERED: MENTHOL/PHENOL 1 EACH UD MM PRN (02:29)
[2018-11-25] MEDS ORDERED: MAGNESIUM HYDROX 2400MG/30ML ORAL SUSPENSION 30 ML CUP PO PRN (02:29)
[2018-11-25] MEDS ORDERED: MAG HYDROX/AL HYDROX/SIMETH 30 ML UNIT-DOSE CUP PO PRN (02:29)
[2018-11-25] MEDS ORDERED: chlordiazePOXIDE HCL 25 MG CAPSULE PO PRN (02:29)
[2018-11-25] MEDS ORDERED: NICOTINE POLACRILEX 2 MG GUM BUC PRN (02:31)
[2018-11-25] MEDS: chlordiazePOXIDE HCL 25 MG CAPSULE PO SCH ×4 (05:53→22:10)
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
[2018-11-25] MEDS: PRENATAL VITAMINS W/ FOLIC ACID TABLET (FP) PO SCH (10:27)
[2018-11-25] MEDS: NICOTINE 21 MG/24 HOURS TOPICAL PATCH TD SCH (10:27)
--- NOTE | 2018-11-25 10:44 | PN ---
[facility] CIWA - CIWA Score Nausea/Vomitin-Mild Nausea/No Vomiting Muscle Tremors: 4-Moderate,w/Arms Extend Anxiety: 4-Mod. Anxious/Guarded Agitation: 3 Paroxysmal Sweats: 2 Orientation: 1-Uncertain about Date Tacttile Disturbances: 0-None Auditory Disturbances: 0-None Visual Disturbances: 0-None Headache: 0-None Present CIWA-Ar Total Score: 15 BHS COWS - Scale Resting Pulse: 0= VT 80 or Below Sweatin= Chills/Flushing Restless Observation: 0= Sits Still Pupil Size: 0= Normal to Room Light Bone or Joint Aches: 2= Severe Diffuse Aches Runny Nose/ Eye Tearin= Nasal Congestion GI Upset > 30mins: 2= Nausea/Diarrhea (no diarrhea) Tremor Observation of Outstretched Hands: 2= Slight Tremor Visible Yawning Observation: 1= 1-2x During Session Anxiety or Irritability: 2=Irritable/Anxious Goose Flesh Skin: 3=Piloerection COWS Score: 14 S Progress Note (SOAP) Subjective: doing well with librium and methadone detox regimen resting on bed feeling tired prefers to stay in bed sleeping today discuss sleep hygiene encourage attend unit groups Objective: 11/25/18 10:42 alcohol and opiate withdrawal sx 11/25/18 10:43 admission lab ordered on 11/26/18 Assessment: 11/25/18 10:43 alcohol and opiate withdrawal sx Plan: continue librium and methadone detox
--- NOTE | 2018-11-25 13:25 | EKG ---
Test Reason : Blood Pressure : / mmHG Vent. Rate : 048 BPM Atrial Rate : 048 BPM P-R Int : 152 ms QRS Dur : 096 ms QT Int : 438 ms P-R-T Axes : 052 -47 051 degrees QTc Int : 391 ms SINUS BRADYCARDIA LEFT ANTERIOR FASCICULAR BLOCK ABNORMAL ECG WHEN COMPARED WITH ECG OF 29-MAR-2017 02:39, VENT. RATE HAS DECREASED BY 37 BPM LEFT ANTERIOR FASCICULAR BLOCK IS NOW PRESENT Confirmed by LORENZA RAMIREZ MD ([id number]) on 11/25/2018 1:24:55 PM Referred By: SHAHRAM Confirmed By:LORENZA RAMIREZ MD
[2018-11-25] MEDS: hydrOXYzine PAMOATE 50 MG CAPSULE (FP) PO PRN ×2 (17:15→22:10)
[2018-11-25] MEDS: THIAMINE HCL 100 MG TABLET (FP) PO SCH (22:10)
[2018-11-26] MEDS: chlordiazePOXIDE HCL 25 MG CAPSULE PO SCH ×4 (05:39→22:08)
[2018-11-26] MEDS ORDERED: METHADONE HCL 5 MG TABLET (FOR DETOX USE ONLY) ONE (08:09)
[2018-11-26] MEDS ORDERED: METHADONE HCL 10 MG TABLET (FOR DETOX USE ONLY) ONE (08:09)
[2018-11-26] MEDS ORDERED: METHADONE (DETOX) 20 MG, METHADONE (DETOX) 5 MG PO ONE (10:00)
[2018-11-26] MEDS: PRENATAL VITAMINS W/ FOLIC ACID TABLET (FP) PO SCH (10:38)
[2018-11-26] MEDS: NICOTINE 21 MG/24 HOURS TOPICAL PATCH TD SCH (10:39)
[2018-11-26 11:59] LABS: HEMATOCRIT 42.1 % (35.4-49); HEMOGLOBIN 14.1 GM/dL (11.7-16.9); MCH 29.7 pg (25.7-33.7); MCHC 33.6 g/dl (32.0-35.9); MEAN CELL VOLUME 88.4 fl (80-96); PLATELET COUNT 285 K/MM3 (134-434); RBC 4.76 M/mm3 (4.00-5.60); RDW 13.1 % (11.9-15.9); WHITE BLOOD COUNT 6.2 K/mm3 (4.0-10.0)
[2018-11-26 12:10] LABS: ALBUMIN 3.1 g/dl (3.4-5.0); BILIRUBIN,TOTAL 0.2 mg/dL (0.2-1); BLOOD UREA NITROGEN 15.3 mg/dL (7-18); CALCIUM 8.8 mg/dL (8.5-10.1); CREATININE 1.1 mg/dL (0.55-1.3); POTASSIUM 4.4 mmol/L (3.5-5.1)
[2018-11-26] MEDS: hydrOXYzine PAMOATE 50 MG CAPSULE (FP) PO PRN ×3 (12:56→22:11)
--- NOTE | 2018-11-26 13:52 | PN ---
[facility] CIWA - CIWA Score Nausea/Vomitin-Mild Nausea/No Vomiting Muscle Tremors: 2 Anxiety: 2 Agitation: 2 Paroxysmal Sweats: No Perspiration Orientation: 0-Oriented Tacttile Disturbances: 1-Very Mild Itch/Numbness Auditory Disturbances: 0-None Visual Disturbances: 0-None Headache: 2-Mild CIWA-Ar Total Score: 10 BHS COWS - Scale Resting Pulse: 0= DC 80 or Below Sweatin= No chills or Flushing Restless Observation: 1= Difficult to Sit Still Pupil Size: 1= Pupils >than Normal Bone or Joint Aches: 2= Severe Diffuse Aches Runny Nose/ Eye Tearin= Nasal Congestion GI Upset > 30mins: 2= Nausea/Diarrhea Tremor Observation of Outstretched Hands: 2= Slight Tremor Visible Yawning Observation: 1= 1-2x During Session Anxiety or Irritability: 2=Irritable/Anxious Goose Flesh Skin: 0=Smooth Skin COWS Score: 12 S Progress Note (SOAP) Subjective: alert,irritable,anxious,interrupted sleep,tremor,pain in the body and back Objective: 11/26/18 13:50 Vital Signs Temperature 97 F L 11/26/18 09:13 Pulse Rate 60 11/26/18 09:13 Respiratory Rate 20 11/26/18 09:13 Blood Pressure 95/65 11/26/18 09:13 O2 Sat by Pulse Oximetry (%) 11/26/18 13:50 Laboratory Last Values WBC 6.2 K/mm3 (4.0-10.0) 11/26/18 08:45 RBC 4.76 M/mm3 (4.00-5.60) 11/26/18 08:45 Hgb 14.1 GM/dL (11.7-16.9) 11/26/18 08:45 Hct 42.1 % (35.4-49) 11/26/18 08:45 MCV 88.4 fl (80-96) 11/26/18 08:45 MCH 29.7 pg (25.7-33.7) 11/26/18 08:45 MCHC 33.6 g/dl (32.0-35.9) 11/26/18 08:45 RDW 13.1 % (11.9-15.9) 11/26/18 08:45 Plt Count 285 K/MM3 (134-434) 11/26/18 08:45 MPV 8.0 fl (7.5-11.1) 11/26/18 08:45 Sodium 138 mmol/L (136-145) 11/26/18 08:45 Potassium 4.4 mmol/L (3.5-5.1) 11/26/18 08:45 Chloride 101 mmol/L (98-107) 11/26/18 08:45 Carbon Dioxide 31 mmol/L (21-32) 11/26/18 08:45 Anion Gap 6 MMOL/L (8-16) L 11/26/18 08:45 BUN 15.3 mg/dL (7-18) 11/26/18 08:45 Creatinine 1.1 mg/dL (0.55-1.3) 11/26/18 08:45 Est GFR (CKD-EPI)AfAm 98.87 11/26/18 08:45 Est GFR (CKD-EPI)NonAf 85.31 11/26/18 08:45 Random Glucose 88 mg/dL (74-106) 11/26/18 08:45 Calcium 8.8 mg/dL (8.5-10.1) 11/26/18 08:45 Total Bilirubin 0.2 mg/dL (0.2-1) 11/26/18 08:45 AST 10 U/L (15-37) L 11/26/18 08:45 ALT 20 U/L (13-61) 11/26/18 08:45 Alkaline Phosphatase 71 U/L (45-117) 11/26/18 08:45 Total Protein 6.0 g/dl (6.4-8.2) L 11/26/18 08:45 Albumin 3.1 g/dl (3.4-5.0) L 11/26/18 08:45 11/26/18 13:51 ua and rpr pending Assessment: 11/26/18 13:51 withdrawal symptom Plan: continue methadone and librium regimen
[2018-11-26] MEDS: THIAMINE HCL 100 MG TABLET (FP) PO SCH (22:08)
[2018-11-27] MEDS ORDERED: chlordiazePOXIDE HCL 10 MG CAPSULE PO PRN
[2018-11-27] MEDS: chlordiazePOXIDE HCL 10 MG CAPSULE PO SCH ×2 (06:04→10:24)
[2018-11-27] MEDS: hydrOXYzine PAMOATE 50 MG CAPSULE (FP) PO PRN ×2 (06:40→11:56)
[2018-11-27] MEDS ORDERED: METHADONE HCL 10 MG TABLET (FOR DETOX USE ONLY) PO ONE (10:00)
[2018-11-27] MEDS: PRENATAL VITAMINS W/ FOLIC ACID TABLET (FP) PO SCH (10:24)
[2018-11-27] MEDS: NICOTINE 21 MG/24 HOURS TOPICAL PATCH TD SCH (10:24)
[2018-11-27 13:18] VITALS: BP 110/74; PULSE 65; TEMP 97.9
--- NOTE | 2018-11-27 13:30 | PN ---
S CIWA - CIWA Score Nausea/Vomitin Muscle Tremors: 2 Anxiety: 2 Agitation: 2 Paroxysmal Sweats: 1-Minimal Palms Moist Orientation: 0-Oriented Tacttile Disturbances: 0-None Auditory Disturbances: 0-None Visual Disturbances: 0-None Headache: 1-Very Mild CIWA-Ar Total Score: 10 BHS COWS - Scale Resting Pulse: 0= IN 80 or Below Sweatin= Chills/Flushing Restless Observation: 1= Difficult to Sit Still Pupil Size: 1= Pupils >than Normal Bone or Joint Aches: 1= Mild Discomfort Runny Nose/ Eye Tearin= Nasal Congestion GI Upset > 30mins: 1= Stomach Cramp Tremor Observation of Outstretched Hands: 1= Tremor [place], Not Seen Yawning Observation: 1= 1-2x During Session Anxiety or Irritability: 2=Irritable/Anxious Goose Flesh Skin: 0=Smooth Skin COWS Score: 10 S Progress Note (SOAP) Subjective: alert,irritable,anxious,pain in the body and back,interrupted sleep Objective: 11/27/18 13:29 Vital Signs Temperature 97.9 F 11/27/18 13:17 Pulse Rate 65 11/27/18 13:17 Respiratory Rate 18 11/27/18 13:17 Blood Pressure 110/74 11/27/18 13:17 O2 Sat by Pulse Oximetry (%) Laboratory Last Values WBC 6.2 K/mm3 (4.0-10.0) 11/26/18 08:45 RBC 4.76 M/mm3 (4.00-5.60) 11/26/18 08:45 Hgb 14.1 GM/dL (11.7-16.9) 11/26/18 08:45 Hct 42.1 % (35.4-49) 11/26/18 08:45 MCV 88.4 fl (80-96) 11/26/18 08:45 MCH 29.7 pg (25.7-33.7) 11/26/18 08:45 MCHC 33.6 g/dl (32.0-35.9) 11/26/18 08:45 RDW 13.1 % (11.9-15.9) 11/26/18 08:45 Plt Count 285 K/MM3 (134-434) 11/26/18 08:45 MPV 8.0 fl (7.5-11.1) 11/26/18 08:45 Sodium 138 mmol/L (136-145) 11/26/18 08:45 Potassium 4.4 mmol/L (3.5-5.1) 11/26/18 08:45 Chloride 101 mmol/L (98-107) 11/26/18 08:45 Carbon Dioxide 31 mmol/L (21-32) 11/26/18 08:45 Anion Gap 6 MMOL/L (8-16) L 11/26/18 08:45 BUN 15.3 mg/dL (7-18) 11/26/18 08:45 Creatinine 1.1 mg/dL (0.55-1.3) 11/26/18 08:45 Est GFR (CKD-EPI)AfAm 98.87 11/26/18 08:45 Est GFR (CKD-EPI)NonAf 85.31 11/26/18 08:45 Random Glucose 88 mg/dL (74-106) 11/26/18 08:45 Calcium 8.8 mg/dL (8.5-10.1) 11/26/18 08:45 Total Bilirubin 0.2 mg/dL (0.2-1) 11/26/18 08:45 AST 10 U/L (15-37) L 11/26/18 08:45 ALT 20 U/L (13-61) 11/26/18 08:45 Alkaline Phosphatase 71 U/L (45-117) 11/26/18 08:45 Total Protein 6.0 g/dl (6.4-8.2) L 11/26/18 08:45 Albumin 3.1 g/dl (3.4-5.0) L 11/26/18 08:45 RPR Titer Nonreactive (NONREACTIVE) 11/26/18 08:45 Assessment: 11/27/18 13:30 withdrawal symptom Plan: continue detox methadone and librium regimen
--- NOTE | 2018-11-27 13:33 | PN ---
[facility] Progress Note Note: patient did not want to complete treatment due to personal issue,the high risk of relapsing explained understood,signed release ama,advise to call 911 if not felling well,
--- NOTE | 2018-11-27 13:38 | DS ---
[facility] Detox Discharge Summary Admission Date: 11/25/18 Discharge Date: 11/27/18 - History Present History: Alcohol Dependence, Cannabis Dependence, Opioid Dependence Additional Comments: patien signed release ama Pertinent Past History: nicotine dependence seizure - Physical Exam Results Vital Signs: Vital Signs Temperature 97.9 F 11/27/18 13:17 Pulse Rate 65 11/27/18 13:17 Respiratory Rate 18 11/27/18 13:17 Blood Pressure 110/74 11/27/18 13:17 O2 Sat by Pulse Oximetry (%) Pertinent Admission Physical Exam Findings: withdrawal signs and symptom - Medication Discharge Medications: Ambulatory Orders NK [No Known Home Medication] 09/21/18 - Diagnosis (1) Opioid dependence with withdrawal Current Visit: Yes Status: Chronic (2) Nicotine dependence Current Visit: Yes Status: Chronic Qualifiers: Nicotine product type: cigarettes Substance use status: uncomplicated Qualified Code(s): F17.210 - Nicotine dependence, cigarettes, uncomplicated (3) Seizure Current Visit: No Status: Chronic (4) Alcohol dependence with uncomplicated withdrawal Current Visit: Yes Status: Chronic - AMA Did Patient Leave Against Medical Advice: Yes
[2018-11-28] MEDS ORDERED: chlordiazePOXIDE HCL 10 MG CAPSULE PO SCH (05:00)
[2018-11-28] MEDS ORDERED: METHADONE (DETOX) 10 MG, METHADONE (DETOX) 5 MG PO ONE (10:00)
[2018-11-29] MEDS ORDERED: chlordiazePOXIDE HCL 10 MG CAPSULE PO ONE (05:00)
[2018-11-29] MEDS ORDERED: METHADONE HCL 10 MG TABLET (FOR DETOX USE ONLY) PO ONE (10:00)
[2018-11-30] MEDS ORDERED: METHADONE HCL 5 MG TABLET (FOR DETOX USE ONLY) PO ONE (06:00)
== END 2018-11-27 13:52 | disposition left against medical advice (07) | DRG 770 ==
LOC: YASAS 01:09 → Y3N 02:39
PROVIDERS: ADMIT Surgery; ATTEND Surgery
PROC: HZ2ZZZZ Detoxification Services for Substance Abuse Treatment (ICD-10-PCS; principal; 2018-11-25)
DX: F11.23 Opioid dependence with withdrawal (principal); F10.230 Alcohol dependence with withdrawal, uncomplicated; F10.24 Alcohol dependence with alcohol-induced mood disorder; F12.20 Cannabis dependence, uncomplicated; F17.210 Nicotine dependence, cigarettes, uncomplicated; F39 Unspecified mood [affective] disorder; F31.9 Bipolar disorder, unspecified; F19.280 Other psychoactive substance dependence with psychoactive substance-induced anxiety disorder; J45.909 Unspecified asthma, uncomplicated; E11.9 Type 2 diabetes mellitus without complications; R76.11 Nonspecific reaction to tuberculin skin test without active tuberculosis; Z87.438 Personal history of other diseases of male genital organs; Z86.69 Personal history of other diseases of the nervous system and sense organs; Z91.018 Allergy to other foods
CPT/HCPCS: 36415; 80053; 81003; 85027; 86593; 93005; 93010

== ENCOUNTER 2018-12-06 14:02 | Emergency (ER) | payer OTHER ==
[2018-12-06 14:12] VITALS: BP 115/49; PULSE 80; TEMP 97.8; BMI 22.4
--- NOTE | 2018-12-06 14:15 | PDOC ---
Rapid Medical Evaluation Chief Complaint: Cold Symptoms Time Seen by Provider: 12/06/18 14:08 Medical Evaluation: Allergies Allergy/AdvReac Type Severity Reaction Status Date / Time soy Allergy Verified 09/21/18 21:25 12/06/18 14:09 Pt c/o: sore throat, body aches, no fever/chills, moist cough, + smoker, denies night sweats, states weight loss over 6 months , denies hemoptysis Pt on brief exam: vss, LCTA Pt ordered for: labs, urine, cxr, influenza Pt to proceed to the ED Discharge Disposition - Diagnosis Cough - Referrals - Patient Instructions - Post Discharge Activity
[2018-12-06 14:41] LABS: BASO % 0.9 % (0-2.0); EOS % 1.1 % (0-4.5); HEMATOCRIT 42.5 % (35.4-49); HEMOGLOBIN 14.3 GM/dL (11.7-16.9); LYMPH % 20.3 % (8-40); MCH 29.7 pg (25.7-33.7); MCHC 33.7 g/dl (32.0-35.9); MEAN CELL VOLUME 88.2 fl (80-96); MEAN PLT VOLUME 7.4 fl (7.5-11.1); MONO % 4.4 % (3.8-10.2); NEUT % 73.3 % (42.8-82.8); PLATELET COUNT 306 K/MM3 (134-434); RBC 4.82 M/mm3 (4.00-5.60); RDW 12.7 % (11.9-15.9); WHITE BLOOD COUNT 6.8 K/mm3 (4.0-10.0)
[2018-12-06 14:43] LABS: PH,URINE 5.5 (5.0-8.0); URINE APPEARANCE CLEAR; URINE BILIRUBIN NEGATIVE (NEGATIVE); URINE COLOR YELLOW; URINE GLUCOSE (UA) NEGATIVE (NEGATIVE); URINE KETONE NEGATIVE (NEGATIVE); URINE LEUK ESTERASE NEGATIVE (NEGATIVE); URINE NITRITE NEGATIVE (NEGATIVE); URINE PROTEIN NEGATIVE (NEGATIVE); URINE UROBILINOGEN 0.2 mg/dL (0.2-1.0)
[2018-12-06 15:07] LABS: ALBUMIN 3.7 g/dl (3.4-5.0); BILIRUBIN,TOTAL 0.3 mg/dL (0.2-1); BLOOD UREA NITROGEN 19.6 mg/dL (7-18); CALCIUM 8.9 mg/dL (8.5-10.1); CREATININE 1.1 mg/dL (0.55-1.3); MAGNESIUM 2.2 mg/dL (1.8-2.4); POTASSIUM 4.6 mmol/L (3.5-5.1)
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
== END 2018-12-06 19:30 | disposition left against medical advice (07) ==
LOC: JER 14:02
DX: R05 Cough (principal); Z91.018 Allergy to other foods; F17.210 Nicotine dependence, cigarettes, uncomplicated
CPT/HCPCS: 36415; 80053; 81003; 83735; 85025; 87389; 99281-25

== ENCOUNTER 2018-12-27 00:55 | Inpatient (IN) | payer OTHER ==
[2018-12-27 01:01] VITALS: BMI 21.8
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
[2018-12-27] MEDS ORDERED: hydrOXYzine PAMOATE 25 MG CAPSULE (FP) PO PRN (02:23)
[2018-12-27] MEDS ORDERED: MELATONIN 5 MG TABLETS PO PRN ×2 (02:23→12:07)
[2018-12-27] MEDS ORDERED: BISMUTH SUBSALICYLATE 524 MG/30 ML UD PO PRN (02:23)
[2018-12-27] MEDS ORDERED: MAGNESIUM CITRATE 300 ML BOTTLE PO PRN (02:23)
[2018-12-27] MEDS ORDERED: MAGNESIUM HYDROX 2400MG/30ML ORAL SUSPENSION 30 ML CUP PO PRN (02:23)
[2018-12-27] MEDS ORDERED: ACETAMINOPHEN 325 MG TABLET (FP) PO PRN ×2 (02:23)
[2018-12-27] MEDS ORDERED: chlordiazePOXIDE HCL 25 MG CAPSULE PO PRN (02:23)
[2018-12-27] MEDS ORDERED: cloNIDine HCL 0.1 MG TABLET PO PRN (02:23)
[2018-12-27] MEDS ORDERED: METHADONE HCL 10 MG TABLET (FOR DETOX USE ONLY) PO ONE (02:23)
[2018-12-27] MEDS ORDERED: MAG HYDROX/AL HYDROX/SIMETH 30 ML UNIT-DOSE CUP PO PRN (02:23)
[2018-12-27] MEDS ORDERED: MENTHOL/PHENOL 1 EACH UD MM PRN (02:23)
[2018-12-27] MEDS ORDERED: NICOTINE POLACRILEX 2 MG GUM BUC PRN (02:23)
[2018-12-27] MEDS ORDERED: IBUPROFEN 400 MG TABLET (FP) PO PRN (02:23)
[2018-12-27] MEDS: chlordiazePOXIDE HCL 25 MG CAPSULE PO SCH ×4 (06:21→22:14)
[2018-12-27] MEDS: NICOTINE 14 MG/24 HOURS TOPICAL PATCH TD SCH (10:41)
[2018-12-27] MEDS: PRENATAL VITAMINS W/ FOLIC ACID TABLET (FP) PO SCH (10:41)
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
--- NOTE | 2018-12-27 12:21 | PN ---
[facility] CIWA - CIWA Score Nausea/Vomitin-No Nausea/No Vomiting Muscle Tremors: 3 Anxiety: 2 Agitation: 3 Paroxysmal Sweats: 3 Orientation: 0-Oriented Tacttile Disturbances: 0-None Auditory Disturbances: 0-None Visual Disturbances: 0-None Headache: 0-None Present CIWA-Ar Total Score: 11 S COWS - Scale Resting Pulse: 0= [place] 80 or Below Sweatin= Chills/Flushing Restless Observation: 1= Difficult to Sit Still Pupil Size: 0= Normal to Room Light Bone or Joint Aches: 2= Severe Diffuse Aches Runny Nose/ Eye Tearin= Nasal Congestion GI Upset > 30mins: 0= None Tremor Observation of Outstretched Hands: 1= Tremor [place], Not Seen Yawning Observation: 2= >3x During Session Anxiety or Irritability: 2=Irritable/Anxious Goose Flesh Skin: 0=Smooth Skin COWS Score: 10 [facility] Progress Note (SOAP) Subjective: sweats shakes interrupted sleep restless body aches agitation Objective: 12/27/18 12:20 Vital Signs Temperature 97.3 F L 12/27/18 09:44 Pulse Rate 60 12/27/18 09:44 Respiratory Rate 20 12/27/18 09:44 Blood Pressure 112/64 12/27/18 09:44 O2 Sat by Pulse Oximetry (%) labs pending aaox3 ambulating no acute distress Assessment: 12/27/18 12:25 withdrawals Plan: continue detox increase fluids pending labs
--- NOTE | 2018-12-27 14:14 | EKG ---
Test Reason : Blood Pressure : / mmHG Vent. Rate : 063 BPM Atrial Rate : 063 BPM P-R Int : 186 ms QRS Dur : 110 ms QT Int : 388 ms P-R-T Axes : 067 -68 065 degrees QTc Int : 397 ms NORMAL SINUS RHYTHM LEFT ANTERIOR FASCICULAR BLOCK NON-SPECIFIC INTRA-VENTRICULAR CONDUCTION DELAY WHEN COMPARED WITH ECG OF 25-NOV-2018 02:52, NO SIGNIFICANT CHANGE WAS FOUND Confirmed by LJ BOYER MD ([id number]) on 12/27/2018 2:13:49 PM Referred By: Confirmed By:LJ BOYER MD
[2018-12-27] MEDS: THIAMINE HCL 100 MG TABLET (FP) PO SCH (22:14)
[2018-12-28] MEDS: chlordiazePOXIDE HCL 25 MG CAPSULE PO SCH ×4 (05:17→22:45)
[2018-12-28] MEDS ORDERED: METHADONE HCL 10 MG TABLET (FOR DETOX USE ONLY) ONE (09:25)
[2018-12-28] MEDS ORDERED: METHADONE HCL 5 MG TABLET (FOR DETOX USE ONLY) ONE (09:25)
[2018-12-28 09:51] LABS: HEMATOCRIT 43.5 % (35.4-49); HEMOGLOBIN 14.6 GM/dL (11.7-16.9); MCH 28.7 pg (25.7-33.7); MCHC 33.5 g/dl (32.0-35.9); MEAN CELL VOLUME 85.8 fl (80-96); MEAN PLT VOLUME 7.9 fl (7.5-11.1); PLATELET COUNT 269 K/MM3 (134-434); RBC 5.07 M/mm3 (4.00-5.60); RDW 13.2 % (11.9-15.9); WHITE BLOOD COUNT 11.7 K/mm3 (4.0-10.0)
[2018-12-28] MEDS ORDERED: METHADONE (DETOX) 20 MG, METHADONE (DETOX) 5 MG PO ONE (10:00)
[2018-12-28 10:18] LABS: ALBUMIN 3.3 g/dl (3.4-5.0); BILIRUBIN,TOTAL 1.1 mg/dL (0.2-1); BLOOD UREA NITROGEN 8.6 mg/dL (7-18); CALCIUM 8.8 mg/dL (8.5-10.1); CREATININE 0.9 mg/dL (0.55-1.3); TOT PROT 6.8 g/dl (6.4-8.2)
[2018-12-28] MEDS: PRENATAL VITAMINS W/ FOLIC ACID TABLET (FP) PO SCH (10:46)
[2018-12-28] MEDS: NICOTINE 14 MG/24 HOURS TOPICAL PATCH TD SCH (10:50)
--- NOTE | 2018-12-28 12:41 | PN ---
[facility] CIWA - CIWA Score Nausea/Vomitin-No Nausea/No Vomiting Muscle Tremors: 2 Anxiety: 2 Agitation: 2 Paroxysmal Sweats: 1-Minimal Palms Moist Orientation: 0-Oriented Tacttile Disturbances: 0-None Auditory Disturbances: 0-None Visual Disturbances: 0-None Headache: 0-None Present CIWA-Ar Total Score: 7 [facility] COWS - Scale Resting Pulse: 1= [place] 81-100 Sweatin= Chills/Flushing Restless Observation: 0= Sits Still Pupil Size: 0= Normal to Room Light Bone or Joint Aches: 1= Mild Discomfort Runny Nose/ Eye Tearin= None GI Upset > 30mins: 0= None Tremor Observation of Outstretched Hands: 1= Tremor [place], Not Seen Yawning Observation: 1= 1-2x During Session Anxiety or Irritability: 2=Irritable/Anxious Goose Flesh Skin: 0=Smooth Skin COWS Score: 7 [facility] Progress Note (SOAP) Subjective: sweats shakes interrupted sleep body aches Objective: 12/28/18 12:41 Vital Signs Temperature 97.7 F 12/28/18 09:32 Pulse Rate 85 12/28/18 09:32 Respiratory Rate 18 12/28/18 09:32 Blood Pressure 116/92 12/28/18 09:32 O2 Sat by Pulse Oximetry (%) Laboratory Tests 12/28/18 12/28/18 07:45 07:45 WBC 11.7 H RBC 5.07 Hgb 14.6 Hct 43.5 MCV 85.8 MCH 28.7 MCHC 33.5 RDW 13.2 Plt Count 269 MPV 7.9 Sodium 136 Potassium 4.0 Chloride 100 Carbon Dioxide 28 Anion Gap 8 BUN 8.6 Creatinine 0.9 Est GFR (CKD-EPI)AfAm 126.02 Est GFR (CKD-EPI)NonAf 108.73 Random Glucose 99 Calcium 8.8 Total Bilirubin 1.1 H AST 10 L ALT 19 Alkaline Phosphatase 71 Total Protein 6.8 Albumin 3.3 L labs noted aaox3 ambulating no acute distress Assessment: 12/28/18 12:41 withdrawals Plan: continue detox increase fluids
[2018-12-28] MEDS ORDERED: FLU VACCINE QUAD 60 MCG/0.5 ML (MDV 19-20) IM ONE ×2 (13:15→13:30)
[2018-12-28] MEDS: hydrOXYzine PAMOATE 50 MG CAPSULE (FP) PO PRN (21:26)
[2018-12-28] MEDS: METHOCARBAMOL 500 MG TABLET PO PRN (22:44)
[2018-12-28] MEDS: THIAMINE HCL 100 MG TABLET (FP) PO SCH (22:45)
[2018-12-29] MEDS ORDERED: chlordiazePOXIDE HCL 10 MG CAPSULE PO PRN
[2018-12-29] MEDS: chlordiazePOXIDE HCL 10 MG CAPSULE PO SCH ×4 (06:11→22:23)
[2018-12-29] MEDS ORDERED: METHADONE HCL 10 MG TABLET (FOR DETOX USE ONLY) PO ONE (10:00)
[2018-12-29] MEDS: PRENATAL VITAMINS W/ FOLIC ACID TABLET (FP) PO SCH (10:23)
[2018-12-29] MEDS: NICOTINE 14 MG/24 HOURS TOPICAL PATCH TD SCH (10:23)
[2018-12-29] MEDS: hydrOXYzine PAMOATE 50 MG CAPSULE (FP) PO PRN (13:29)
--- NOTE | 2018-12-29 16:49 | PN ---
[facility] CIWA - CIWA Score Nausea/Vomitin-No Nausea/No Vomiting Muscle Tremors: 2 Anxiety: 1-Mildly Anxious Agitation: 1-Slight > Activity Paroxysmal Sweats: 2 Orientation: 0-Oriented Tacttile Disturbances: 0-None Auditory Disturbances: 0-None Visual Disturbances: 0-None Headache: 0-None Present CIWA-Ar Total Score: 6 S COWS - Scale Resting Pulse: 1= [place] 81-100 Sweatin= Chills/Flushing Restless Observation: 0= Sits Still Pupil Size: 0= Normal to Room Light Bone or Joint Aches: 1= Mild Discomfort Runny Nose/ Eye Tearin= None GI Upset > 30mins: 1= Stomach Cramp Tremor Observation of Outstretched Hands: 2= Slight Tremor Visible Yawning Observation: 0= None Anxiety or Irritability: 0= None Goose Flesh Skin: 0=Smooth Skin COWS Score: 6 [facility] Progress Note (SOAP) Subjective: Tremor, chills, sweating, nasal congestion Objective: 12/29/18 16:46 Last Vital Signs Temp Pulse Resp BP Pulse Ox 98.4 F 87 20 112/72 12/29/18 14:06 12/29/18 14:06 12/29/18 14:06 12/29/18 14:06 Laboratory Tests 12/28/18 12/28/18 12/28/18 07:45 07:45 07:45 WBC 11.7 H RBC 5.07 Hgb 14.6 Hct 43.5 MCV 85.8 MCH 28.7 MCHC 33.5 RDW 13.2 Plt Count 269 MPV 7.9 Sodium 136 Potassium 4.0 Chloride 100 Carbon Dioxide 28 Anion Gap 8 BUN 8.6 Creatinine 0.9 Est GFR (CKD-EPI)AfAm 126.02 Est GFR (CKD-EPI)NonAf 108.73 Random Glucose 99 Calcium 8.8 Total Bilirubin 1.1 H AST 10 L ALT 19 Alkaline Phosphatase 71 Total Protein 6.8 Albumin 3.3 L RPR Titer Nonreactive Labs reviewed: wbc 11.7 Assessment: 12/29/18 16:46 Withdrawal sxs Noted with leukocytosis Plan: Continue detox Encouraged PO water intake Leukocytosis: asymptomatic, repeat CBC, send UA
[2018-12-29] MEDS ORDERED: guaiFENesin/D-METHORPHAN HB 10 ML UNIT-DOSE CUPS PO PRN (17:06)
[2018-12-29] MEDS: METHOCARBAMOL 500 MG TABLET PO PRN (22:23)
[2018-12-29] MEDS: THIAMINE HCL 100 MG TABLET (FP) PO SCH (22:23)
[2018-12-30] MEDS ORDERED: chlordiazePOXIDE HCL 10 MG CAPSULE PO SCH (05:00)
[2018-12-30 09:29] VITALS: BP 116/66; PULSE 74; TEMP 98.4
[2018-12-30] MEDS ORDERED: METHADONE HCL 5 MG TABLET (FOR DETOX USE ONLY) ONE (09:32)
[2018-12-30] MEDS ORDERED: METHADONE HCL 10 MG TABLET (FOR DETOX USE ONLY) ONE (09:33)
[2018-12-30 10:00] LABS: BASO % 0.6 % (0-2.0); EOS % 2.1 % (0-4.5); HEMATOCRIT 44.2 % (35.4-49); HEMOGLOBIN 14.8 GM/dL (11.7-16.9); LYMPH % 16.3 % (8-40); MCH 28.9 pg (25.7-33.7); MCHC 33.6 g/dl (32.0-35.9); MEAN PLT VOLUME 7.6 fl (7.5-11.1); MONO % 7.9 % (3.8-10.2); NEUT % 73.1 % (42.8-82.8); PLATELET COUNT 299 K/MM3 (134-434); RBC 5.14 M/mm3 (4.00-5.60); WHITE BLOOD COUNT 9.4 K/mm3 (4.0-10.0)
[2018-12-30] MEDS ORDERED: METHADONE (DETOX) 10 MG, METHADONE (DETOX) 5 MG PO ONE (10:00)
[2018-12-30] MEDS ORDERED: guaiFENesin 200 MG/10 ML 10 ML UNIT-DOSE CUPS PO PRN (10:28)
--- NOTE | 2018-12-30 10:32 | PN ---
[facility] CIWA - CIWA Score Nausea/Vomitin-No Nausea/No Vomiting Muscle Tremors: 2 Anxiety: 1-Mildly Anxious Agitation: 1-Slight > Activity Paroxysmal Sweats: No Perspiration Orientation: 0-Oriented Tacttile Disturbances: 0-None Auditory Disturbances: 0-None Visual Disturbances: 0-None Headache: 0-None Present CIWA-Ar Total Score: 4 S COWS - Scale Resting Pulse: 0= [place] 80 or Below Sweatin= Chills/Flushing Restless Observation: 1= Difficult to Sit Still Pupil Size: 0= Normal to Room Light Bone or Joint Aches: 0= None Runny Nose/ Eye Tearin= None GI Upset > 30mins: 0= None Tremor Observation of Outstretched Hands: 1= Tremor [place], Not Seen Yawning Observation: 0= None Anxiety or Irritability: 1=Feels Anxious/Irritable Goose Flesh Skin: 0=Smooth Skin COWS Score: 4 [facility] Progress Note (SOAP) Subjective: irritable tired Objective: 12/30/18 10:31 Vital Signs Temperature 98.4 F 12/30/18 09:29 Pulse Rate 74 12/30/18 09:29 Respiratory Rate 18 12/30/18 09:29 Blood Pressure 116/66 12/30/18 09:29 O2 Sat by Pulse Oximetry (%) aaox3 ambulating no acute distress Assessment: 12/30/18 10:31 mild withdrawals Plan: continue detox increase fluids d/c in am
[2018-12-30] MEDS: PRENATAL VITAMINS W/ FOLIC ACID TABLET (FP) PO SCH (11:02)
[2018-12-30] MEDS: NICOTINE 14 MG/24 HOURS TOPICAL PATCH TD SCH (11:03)
--- NOTE | 2018-12-30 11:56 | DS ---
[facility] Detox Discharge Summary Admission Date: 12/27/18 Discharge Date: 12/30/18 - History Present History: Alcohol Dependence, Opioid Dependence - Physical Exam Results Vital Signs: Vital Signs Temperature 98.4 F 12/30/18 09:29 Pulse Rate 74 12/30/18 09:29 Respiratory Rate 18 12/30/18 09:29 Blood Pressure 116/66 12/30/18 09:29 O2 Sat by Pulse Oximetry (%) Pertinent Admission Physical Exam Findings: Vital Signs Temperature 98.4 F 12/30/18 09:29 Pulse Rate 74 12/30/18 09:29 Respiratory Rate 18 12/30/18 09:29 Blood Pressure 116/66 12/30/18 09:29 O2 Sat by Pulse Oximetry (%) Laboratory Tests 12/28/18 12/28/18 12/28/18 07:45 07:45 07:45 WBC 11.7 H RBC 5.07 Hgb 14.6 Hct 43.5 MCV 85.8 MCH 28.7 MCHC 33.5 RDW 13.2 Plt Count 269 MPV 7.9 Absolute Neuts (auto) Neutrophils % Lymphocytes % Monocytes % Eosinophils % Basophils % Nucleated RBC % Sodium 136 Potassium 4.0 Chloride 100 Carbon Dioxide 28 Anion Gap 8 BUN 8.6 Creatinine 0.9 Est GFR (CKD-EPI)AfAm 126.02 Est GFR (CKD-EPI)NonAf 108.73 Random Glucose 99 Calcium 8.8 Total Bilirubin 1.1 H AST 10 L ALT 19 Alkaline Phosphatase 71 Total Protein 6.8 Albumin 3.3 L RPR Titer Nonreactive 12/30/18 08:00 WBC 9.4 RBC 5.14 Hgb 14.8 Hct 44.2 MCV 86.0 MCH 28.9 MCHC 33.6 RDW 13.0 Plt Count 299 MPV 7.6 Absolute Neuts (auto) 6.8 Neutrophils % 73.1 Lymphocytes % 16.3 Monocytes % 7.9 Eosinophils % 2.1 D Basophils % 0.6 Nucleated RBC % 0 Sodium Potassium Chloride Carbon Dioxide Anion Gap BUN Creatinine Est GFR (CKD-EPI)AfAm Est GFR (CKD-EPI)NonAf Random Glucose Calcium Total Bilirubin AST ALT Alkaline Phosphatase Total Protein Albumin RPR Titer aaox3 ambulating no acute distress - Treatment Hospital Course: Detox Protocol Followed, Detoxed Safely, Responded well, Discharged Condition Good, Rehab Referral Accepted Patient has Accepted a Rehab Referral to: declined rehab; referral provided - Medication Discharge Medications: Ambulatory Orders NK [No Known Home Medication] 09/21/18 - Diagnosis (1) Alcohol dependence with uncomplicated withdrawal Current Visit: Yes Status: Chronic (2) Cocaine dependence Current Visit: Yes Status: Chronic Qualifiers: Substance use status: uncomplicated Qualified Code(s): F14.20 - Cocaine dependence, uncomplicated (3) Opioid dependence, uncomplicated Current Visit: Yes Status: Chronic (4) Asthma Current Visit: Yes Status: Chronic (5) Cannabis dependence Current Visit: Yes Status: Chronic (6) Drug-induced mood disorder Current Visit: No Status: Chronic (7) Nicotine dependence Current Visit: Yes Status: Chronic Qualifiers: Nicotine product type: cigarettes Substance use status: uncomplicated Qualified Code(s): F17.210 - Nicotine dependence, cigarettes, uncomplicated - AMA Did Patient Leave Against Medical Advice: No
[2018-12-30] MEDS ORDERED: FLU VACCINE QUAD 60 MCG/0.5 ML (MDV 19-20) IM ONE (12:00)
[2018-12-31] MEDS ORDERED: chlordiazePOXIDE HCL 10 MG CAPSULE PO ONE (05:00)
[2018-12-31] MEDS ORDERED: METHADONE HCL 10 MG TABLET (FOR DETOX USE ONLY) PO ONE (10:00)
[2019-01-01] MEDS ORDERED: METHADONE HCL 5 MG TABLET (FOR DETOX USE ONLY) PO ONE (06:00)
== END 2018-12-30 12:08 | disposition home or self-care (01) | DRG 773 ==
LOC: YASAS 00:55 → Y6N 01:31
PROVIDERS: ADMIT Allergy & Immunology; ATTEND Allergy & Immunology
PROC: HZ2ZZZZ Detoxification Services for Substance Abuse Treatment (ICD-10-PCS; principal; 2018-12-27)
DX: F11.23 Opioid dependence with withdrawal (principal); F10.230 Alcohol dependence with withdrawal, uncomplicated; F14.20 Cocaine dependence, uncomplicated; F12.20 Cannabis dependence, uncomplicated; F17.210 Nicotine dependence, cigarettes, uncomplicated; F19.24 Other psychoactive substance dependence with psychoactive substance-induced mood disorder; F19.280 Other psychoactive substance dependence with psychoactive substance-induced anxiety disorder; F19.282 Other psychoactive substance dependence with psychoactive substance-induced sleep disorder; F39 Unspecified mood [affective] disorder; F31.9 Bipolar disorder, unspecified; J45.909 Unspecified asthma, uncomplicated; D72.829 Elevated white blood cell count, unspecified; R05 Cough; R73.03 Prediabetes; R76.11 Nonspecific reaction to tuberculin skin test without active tuberculosis; Z91.011 Allergy to milk products; Z86.69 Personal history of other diseases of the nervous system and sense organs
CPT/HCPCS: 36415; 80053; 85025; 85027; 86593; 93005; 93010; Q2036

== ENCOUNTER 2019-01-23 18:33 | Emergency (ER) | payer OTHER ==
[2019-01-23 18:51] VITALS: BP 116/78; PULSE 80; TEMP 97.5; BMI 21.4
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
[2019-01-23] MEDS ORDERED: ONDANSETRON 4 MG/2 ML VIAL IVPUSH ONE (19:17)
[2019-01-23] MEDS ORDERED: SODIUM CHLORIDE 0.9% 1000 ML INFUS.BAG IV ONE (19:18)
[2019-01-23] MEDS ORDERED: ONDANSETRON 4 MG/2 ML VIAL ONE (19:31)
[2019-01-23 19:44] LABS: BASO % 1.1 % (0-2.0); EOS % 2.3 % (0-4.5); HEMATOCRIT 37.4 % (35.4-49); HEMOGLOBIN 12.5 GM/dL (11.7-16.9); LYMPH % 31.8 % (8-40); MCHC 33.5 g/dl (32.0-35.9); MEAN CELL VOLUME 86.5 fl (80-96); MEAN PLT VOLUME 7.9 fl (7.5-11.1); MONO % 6.5 % (3.8-10.2); NEUT % 58.3 % (42.8-82.8); PLATELET COUNT 306 K/MM3 (134-434); RBC 4.33 M/mm3 (4.00-5.60); RDW 13.5 % (11.9-15.9)
[2019-01-23 20:18] LABS: ALBUMIN 3.3 g/dl (3.4-5.0); BILIRUBIN,TOTAL 0.2 mg/dL (0.2-1); BLOOD UREA NITROGEN 15.1 mg/dL (7-18); CALCIUM 8.2 mg/dL (8.5-10.1); TOT PROT 6.4 g/dl (6.4-8.2)
== END 2019-01-23 21:00 | disposition left against medical advice (07) ==
LOC: JER 18:33
PROC: 3E033GC Introduction of Other Therapeutic Substance into Peripheral Vein, Percutaneous Approach (ICD-10-PCS; principal; 2019-01-23)
PROC: 3E0337Z Introduction of Electrolytic and Water Balance Substance into Peripheral Vein, Percutaneous Approach (ICD-10-PCS; 2019-01-23)
DX: F19.10 Other psychoactive substance abuse, uncomplicated (principal); Z91.018 Allergy to other foods; J45.909 Unspecified asthma, uncomplicated
CPT/HCPCS: 36415; 80053; 83690; 85025; 99283-25; J7030

== ENCOUNTER 2022-05-27 22:20 | Inpatient (IN) | payer OTHER ==
[2022-05-27 23:59] VITALS: BMI 20.3
[2022-05-28] MEDS ORDERED: ACETAMINOPHEN 325 MG TABLET (FP) PO PRN (00:17)
[2022-05-28] MEDS ORDERED: MAGNESIUM HYDROX 2400MG/30ML ORAL SUSPENSION 30 ML CUP PO PRN (00:17)
[2022-05-28] MEDS ORDERED: POLYETHYLENE GLYCOL (HEALTHYLAX) 3350 17 GM PACKET PO PRN (00:17)
[2022-05-28] MEDS ORDERED: BENZONATATE 200 MG CAPSULE PO PRN (00:17)
[2022-05-28] MEDS ORDERED: LOPERAMIDE HCL 2 MG CAPSULE PO PRN (00:17)
[2022-05-28] MEDS ORDERED: ONDANSETRON *ODT* 4 MG TABLET SL PRN (00:17)
[2022-05-28] MEDS ORDERED: BENZOCAINE/MENTHOL (CHLORASEPTIC ) LOZENGE MM PRN (00:17)
[2022-05-28] MEDS ORDERED: DICYCLOMINE HCL 10 MG CAPSULE PO PRN (00:17)
[2022-05-28] MEDS ORDERED: NALOXONE HCL (KLOXXADO) 8 MG SPRAY NS PRN (00:17)
[2022-05-28] MEDS ORDERED: IBUPROFEN 400 MG TABLET (FP) PO PRN (00:17)
[2022-05-28] MEDS ORDERED: MAG HYDROX/AL HYDROX/SIMETH 30 ML UNIT-DOSE CUP PO PRN (00:17)
[2022-05-28] MEDS ORDERED: IBUPROFEN 600 MG TABLET (FP) PO PRN (00:17)
[2022-05-28] MEDS ORDERED: guaiFENesin 600 MG TABLET.ER (FP) PO PRN (00:17)
[2022-05-28] MEDS ORDERED: BISMUTH SUBSALICYLATE 524 MG/30 ML PO PRN (00:17)
[2022-05-28] MEDS ORDERED: NICOTINE POLACRILEX 2 MG GUM BUC PRN (00:17)
[2022-05-28] MEDS ORDERED: NALOXONE HCL 0.4 MG/ML VIAL IM PRN (00:17)
[2022-05-28] MEDS: hydrOXYzine PAMOATE 25 MG CAPSULE (FP) PO PRN (10:54)
[2022-05-28] MEDS: PRENATAL VITAMINS W/ FOLIC ACID TABLET (FP) PO SCH (10:54)
[2022-05-28] MEDS: METHOCARBAMOL 500 MG TABLET PO PRN (10:54)
[2022-05-28] MEDS: NICOTINE 14 MG/24 HOURS TOPICAL PATCH TD SCH (10:55)
[2022-05-28 11:45] LABS: HEMATOCRIT 39.2 % (35.4-49); HEMOGLOBIN 13.3 GM/dL (11.7-16.9); MCH 28.9 pg (25.7-33.7); MEAN CELL VOLUME 84.8 fl (80-96); MEAN PLT VOLUME 7.9 fl (7.5-11.1); PLATELET COUNT 272 10^3/uL (134-434); RBC 4.62 M/mm3 (4.00-5.60); WHITE BLOOD COUNT 5.8 K/mm3 (4.0-10.0)
[2022-05-28 12:04] LABS: ALBUMIN 3.3 g/dl (3.4-5.0); BLOOD UREA NITROGEN 17.9 mg/dL (7-18); CALCIUM 8.9 mg/dL (8.5-10.1)
[2022-05-28 12:07] LABS: CREATININE 0.8 mg/dL (0.55-1.3)
[2022-05-28 12:09] LABS: BILIRUBIN,TOTAL 0.4 mg/dL (0.2-1); TOT PROT 6.2 g/dl (6.4-8.2)
[2022-05-28] MEDS: THIAMINE HCL 100 MG TABLET (FP) PO SCH (22:32)
[2022-05-28] MEDS: MELATONIN 5 MG TABLETS PO SCH (22:32)
[2022-05-29] MEDS ORDERED: cloNIDine HCL 0.1 MG TABLET PO PRN (09:12)
[2022-05-29] MEDS ORDERED: methaDONE HCL 10 MG TABLET (FOR DETOX USE ONLY) PO ONE (10:00)
[2022-05-29] MEDS: METHOCARBAMOL 500 MG TABLET PO PRN (10:29)
[2022-05-29] MEDS: diazePAM 5 MG TABLET PO PRN (10:29)
[2022-05-29] MEDS: NICOTINE 14 MG/24 HOURS TOPICAL PATCH TD SCH (10:30)
[2022-05-29] MEDS: PRENATAL VITAMINS W/ FOLIC ACID TABLET (FP) PO SCH (10:30)
[2022-05-29] MEDS: THIAMINE HCL 100 MG TABLET (FP) PO SCH (22:28)
[2022-05-29] MEDS: MELATONIN 5 MG TABLETS PO SCH (22:29)
[2022-05-30] MEDS: PRENATAL VITAMINS W/ FOLIC ACID TABLET (FP) PO SCH (09:43)
[2022-05-30] MEDS: METHOCARBAMOL 500 MG TABLET PO PRN (09:43)
[2022-05-30] MEDS: diazePAM 5 MG TABLET PO PRN (09:43)
[2022-05-30] MEDS: NICOTINE 14 MG/24 HOURS TOPICAL PATCH TD SCH (09:44)
[2022-05-30] MEDS: THIAMINE HCL 100 MG TABLET (FP) PO SCH (21:52)
[2022-05-30] MEDS: MELATONIN 5 MG TABLETS PO SCH (21:53)
[2022-05-31] MEDS: diazePAM 5 MG TABLET PO PRN ×2 (02:28→17:30)
[2022-05-31] MEDS: PRENATAL VITAMINS W/ FOLIC ACID TABLET (FP) PO SCH (09:54)
[2022-05-31] MEDS: hydrOXYzine PAMOATE 25 MG CAPSULE (FP) PO PRN (09:54)
[2022-05-31] MEDS: METHOCARBAMOL 500 MG TABLET PO PRN ×2 (09:54→22:32)
[2022-05-31] MEDS: NICOTINE 14 MG/24 HOURS TOPICAL PATCH TD SCH (09:56)
[2022-05-31] MEDS ORDERED: methaDONE HCL 10 MG TABLET (FOR DETOX USE ONLY) PO ONE (10:00)
[2022-05-31] MEDS: NICOTINE 10 MG CARTRIDGE (INHALER) IH PRN (16:51)
[2022-05-31] MEDS: THIAMINE HCL 100 MG TABLET (FP) PO SCH (22:29)
[2022-05-31] MEDS: MELATONIN 5 MG TABLETS PO SCH (22:29)
[2022-06-01] MEDS: PRENATAL VITAMINS W/ FOLIC ACID TABLET (FP) PO SCH (10:16)
[2022-06-01] MEDS: METHOCARBAMOL 500 MG TABLET PO PRN ×2 (10:16→19:47)
[2022-06-01] MEDS: NICOTINE 14 MG/24 HOURS TOPICAL PATCH TD SCH (10:17)
[2022-06-01] MEDS: hydrOXYzine PAMOATE 25 MG CAPSULE (FP) PO PRN ×2 (10:19→18:24)
[2022-06-01] MEDS: NICOTINE 10 MG CARTRIDGE (INHALER) IH PRN (19:47)
[2022-06-01] MEDS: THIAMINE HCL 100 MG TABLET (FP) PO SCH (21:46)
[2022-06-01] MEDS: MELATONIN 5 MG TABLETS PO SCH (21:46)
[2022-06-02] MEDS ORDERED: methaDONE HCL 10 MG TABLET (FOR DETOX USE ONLY) PO ONE (10:00)
[2022-06-02] MEDS: PRENATAL VITAMINS W/ FOLIC ACID TABLET (FP) PO SCH (10:33)
[2022-06-02] MEDS: METHOCARBAMOL 500 MG TABLET PO PRN (10:33)
[2022-06-02] MEDS: hydrOXYzine PAMOATE 25 MG CAPSULE (FP) PO PRN (10:33)
[2022-06-02] MEDS: NICOTINE 14 MG/24 HOURS TOPICAL PATCH TD SCH (10:34)
[2022-06-02] MEDS ORDERED: ALBUTEROL SO4 HFA INHALER IH PRN (13:15)
[2022-06-02 13:43] VITALS: BP 137/78; PULSE 91; RESP 18; TEMP 97.5
== END 2022-06-02 13:25 | disposition home or self-care (01) | DRG 773 ==
LOC: YASAS 22:20 → Y6N 05-28 00:17 → UNDOADMIN 05-28 01:20
PROVIDERS: ADMIT Allergy & Immunology; ATTEND Allergy & Immunology
PROC: HZ2ZZZZ Detoxification Services for Substance Abuse Treatment (ICD-10-PCS; principal; 2022-05-28)
DX: F11.23 Opioid dependence with withdrawal (principal); F14.20 Cocaine dependence, uncomplicated; F12.20 Cannabis dependence, uncomplicated; F17.210 Nicotine dependence, cigarettes, uncomplicated; F39 Unspecified mood [affective] disorder; F31.9 Bipolar disorder, unspecified; J45.909 Unspecified asthma, uncomplicated; R73.03 Prediabetes; Z86.69 Personal history of other diseases of the nervous system and sense organs; Z59.00 Homelessness unspecified; Z56.0 Unemployment, unspecified
CPT/HCPCS: 36415; 80053; 85027; 86780; 93005; 93010; C9803-CS; U0003; U0005

== ENCOUNTER 2022-10-12 21:39 | Inpatient (IN) | payer OTHER ==
[2022-10-12 22:14] VITALS: BMI 17.9
[2022-10-12] MEDS ORDERED: P-EPHED 60MG/TRIPROLIDI 2.5MG TABLET PO PRN (22:40)
[2022-10-12] MEDS ORDERED: IBUPROFEN 600 MG TABLET (FP) PO PRN (22:40)
[2022-10-12] MEDS ORDERED: BENZONATATE 200 MG CAPSULE PO PRN (22:40)
[2022-10-12] MEDS ORDERED: ONDANSETRON *ODT* 4 MG TABLET SL PRN (22:40)
[2022-10-12] MEDS ORDERED: guaiFENesin 600 MG TABLET.ER (FP) PO PRN (22:40)
[2022-10-12] MEDS ORDERED: MAGNESIUM HYDROX 2400MG/30ML ORAL SUSPENSION 30 ML CUP PO PRN (22:40)
[2022-10-12] MEDS ORDERED: NALOXONE HCL (KLOXXADO) 8 MG SPRAY NS PRN (22:40)
[2022-10-12] MEDS ORDERED: IBUPROFEN 400 MG TABLET (FP) PO PRN (22:40)
[2022-10-12] MEDS ORDERED: LOPERAMIDE HCL 2 MG CAPSULE PO PRN (22:40)
[2022-10-12] MEDS ORDERED: POLYETHYLENE GLYCOL (HEALTHYLAX) 3350 17 GM PACKET PO PRN (22:40)
[2022-10-12] MEDS ORDERED: MAG HYDROX/AL HYDROX/SIMETH 30 ML UNIT-DOSE CUP PO PRN (22:40)
[2022-10-12] MEDS ORDERED: DICYCLOMINE HCL 10 MG CAPSULE PO PRN (22:40)
[2022-10-12] MEDS ORDERED: NICOTINE POLACRILEX 2 MG GUM BUC PRN (22:40)
[2022-10-12] MEDS ORDERED: BISMUTH SUBSALICYLATE 524 MG/30 ML PO PRN (22:40)
[2022-10-12] MEDS ORDERED: BENZOCAINE/MENTHOL (CHLORASEPTIC ) LOZENGE MM PRN (22:40)
[2022-10-12] MEDS ORDERED: METHOCARBAMOL 500 MG TABLET PO PRN (22:40)
[2022-10-12] MEDS ORDERED: ACETAMINOPHEN 325 MG TABLET (FP) PO PRN (22:40)
[2022-10-12] MEDS ORDERED: hydrOXYzine PAMOATE 25 MG CAPSULE (FP) PO PRN (22:40)
[2022-10-12] MEDS ORDERED: NALOXONE HCL 0.4 MG/ML VIAL IM PRN (22:40)
[2022-10-13] MEDS ORDERED: PRENATAL VITAMINS W/ FOLIC ACID TABLET (FP) PO SCH (10:00)
[2022-10-13] MEDS ORDERED: ALBUTEROL SO4 HFA INHALER IH PRN (14:23)
[2022-10-13 15:15] LABS: HEMATOCRIT 42.5 % (35.4-49); HEMOGLOBIN 14.1 GM/dL (11.7-16.9); MCH 29.1 pg (25.7-33.7); MCHC 33.3 g/dl (32.0-35.9); MEAN CELL VOLUME 87.3 fl (80-96); MEAN PLT VOLUME 7.9 fl (7.5-11.1); PLATELET COUNT 258 10^3/uL (134-434); RBC 4.86 M/mm3 (4.00-5.60); RDW 13.5 % (11.9-15.9); WHITE BLOOD COUNT 5.9 K/mm3 (4.0-10.0)
[2022-10-13 15:20] LABS: POTASSIUM 4.4 mmol/L (3.5-5.1)
[2022-10-13 15:27] LABS: CALCIUM 8.3 mg/dL (8.5-10.1)
[2022-10-13 15:28] LABS: ALBUMIN 3.2 g/dl (3.4-5.0); BLOOD UREA NITROGEN 16.7 mg/dL (7-18)
[2022-10-13 15:31] LABS: CREATININE 0.7 mg/dL (0.55-1.3)
[2022-10-13 15:32] LABS: BILIRUBIN,TOTAL 0.6 mg/dL (0.2-1); TOT PROT 6.1 g/dl (6.4-8.2)
[2022-10-13] MEDS ORDERED: THIAMINE HCL 100 MG TABLET (FP) PO SCH (22:00)
[2022-10-13] MEDS ORDERED: MELATONIN 5 MG TABLETS PO SCH (22:00)
[2022-10-14 06:57] VITALS: RESP 18
[2022-10-14 09:21] VITALS: BP 141/91; PULSE 67; TEMP 97.5
== END 2022-10-14 10:15 | disposition home or self-care (01) | DRG 773 ==
LOC: YASAS 21:39 → Y3N 22:50
PROVIDERS: ADMIT Allergy & Immunology; ATTEND Allergy & Immunology
PROC: HZ2ZZZZ Detoxification Services for Substance Abuse Treatment (ICD-10-PCS; principal; 2022-10-12)
DX: F11.20 Opioid dependence, uncomplicated (principal); F14.20 Cocaine dependence, uncomplicated; F17.210 Nicotine dependence, cigarettes, uncomplicated; F19.24 Other psychoactive substance dependence with psychoactive substance-induced mood disorder; U07.1 COVID-19; J45.20 Mild intermittent asthma, uncomplicated; R73.03 Prediabetes
CPT/HCPCS: 36415; 80053; 85027; 86780; 87635; 87811

== ENCOUNTER 2023-02-21 21:30 | Inpatient (IN) | payer OTHER ==
[2023-02-21] MEDS ORDERED: ALBUTEROL SO4 HFA INHALER IH PRN (22:53)
[2023-02-21 23:00] VITALS: BMI 18.8
[2023-02-21] MEDS ORDERED: POLYETHYLENE GLYCOL (HEALTHYLAX) 3350 17 GM PACKET PO PRN (23:05)
[2023-02-21] MEDS ORDERED: BENZOCAINE/MENTHOL (CHLORASEPTIC ) LOZENGE MM PRN (23:05)
[2023-02-21] MEDS ORDERED: NICOTINE POLACRILEX 2 MG GUM BUC PRN (23:05)
[2023-02-21] MEDS ORDERED: MAGNESIUM HYDROX 2400MG/30ML ORAL SUSPENSION 30 ML CUP PO PRN (23:05)
[2023-02-21] MEDS ORDERED: MAG HYDROX/AL HYDROX/SIMETH 30 ML UNIT-DOSE CUP PO PRN (23:05)
[2023-02-21] MEDS ORDERED: DICYCLOMINE HCL 10 MG CAPSULE PO PRN (23:05)
[2023-02-21] MEDS ORDERED: guaiFENesin 600 MG TABLET.ER (FP) PO PRN (23:05)
[2023-02-21] MEDS ORDERED: BISMUTH SUBSALICYLATE 524 MG/30 ML PO PRN (23:05)
[2023-02-21] MEDS ORDERED: P-EPHED 60MG/TRIPROLIDI 2.5MG TABLET PO PRN (23:05)
[2023-02-21] MEDS ORDERED: BENZONATATE 200 MG CAPSULE PO PRN (23:05)
[2023-02-21] MEDS ORDERED: ONDANSETRON *ODT* 4 MG TABLET SL PRN (23:05)
[2023-02-21] MEDS ORDERED: NALOXONE HCL (KLOXXADO) 8 MG SPRAY NS PRN (23:05)
[2023-02-21] MEDS ORDERED: NALOXONE HCL 0.4 MG/ML VIAL IM PRN (23:05)
[2023-02-21] MEDS ORDERED: IBUPROFEN 400 MG TABLET (FP) PO PRN (23:05)
[2023-02-21] MEDS ORDERED: LOPERAMIDE HCL 2 MG CAPSULE PO PRN (23:05)
[2023-02-22] MEDS: IBUPROFEN 600 MG TABLET (FP) PO PRN (00:53)
[2023-02-22] MEDS: METHOCARBAMOL 500 MG TABLET PO PRN (00:54)
[2023-02-22] MEDS: NICOTINE 14 MG/24 HOURS TOPICAL PATCH TD SCH (10:18)
[2023-02-22] MEDS: PRENATAL VITAMINS W/ FOLIC ACID TABLET (FP) PO SCH (10:18)
[2023-02-22] MEDS ORDERED: cloNIDine HCL 0.1 MG TABLET PO PRN (10:22)
[2023-02-22] MEDS: methaDONE HCL 10 MG TABLET (FOR DETOX USE ONLY) PO ONE (10:38)
[2023-02-22] MEDS: diazePAM 5 MG TABLET PO SCH (10:40)
[2023-02-22 11:08] LABS: HEMATOCRIT 40.2 % (35.4-49); HEMOGLOBIN 13.2 GM/dL (11.7-16.9); MCH 29.5 pg (25.7-33.7); MCHC 32.9 g/dl (32.0-35.9); MEAN CELL VOLUME 89.6 fl (80-96); MEAN PLT VOLUME 7.4 fl (7.5-11.1); PLATELET COUNT 309 10^3/uL (134-434); RBC 4.49 M/mm3 (4.00-5.60); RDW 12.9 % (11.9-15.9); WHITE BLOOD COUNT 6.6 K/mm3 (4.0-10.0)
[2023-02-22 11:39] LABS: CHLORIDE 104 mmol/L (98-107); SODIUM 136 mmol/L (136-145)
[2023-02-22 11:41] LABS: ANION GAP 4 mmol/L (4-13); BLOOD UREA NITROGEN 17.7 mg/dL (7-18); CALCIUM 8.6 mg/dL (8.5-10.1); CO2 28 mmol/L (21-32); GLUCOSE,RANDOM 88 mg/dL (74-106)
[2023-02-22 11:43] LABS: CREATININE 0.8 mg/dL (0.55-1.3); SGOT/AST 20 U/L (15-37); SGPT/ALT 30 U/L (13-61)
[2023-02-22 11:46] LABS: ALK PHOS 75 U/L (45-117); BILIRUBIN,TOTAL 0.2 mg/dL (0.2-1); TOT PROT 5.7 g/dl (6.4-8.2)
[2023-02-22] MEDS: MELATONIN 5 MG TABLETS PO SCH (22:37)
[2023-02-22] MEDS: THIAMINE HCL 100 MG TABLET (FP) PO SCH (22:37)
[2023-02-23] MEDS: hydrOXYzine PAMOATE 25 MG CAPSULE (FP) PO PRN (13:19)
[2023-02-24] MEDS: diazePAM 5 MG TABLET PO SCH (05:26)
[2023-02-24] MEDS: methaDONE HCL 10 MG TABLET (FOR DETOX USE ONLY) PO ONE (09:51)
[2023-02-24] MEDS: diazePAM 5 MG TABLET PO PRN (09:52)
[2023-02-25] MEDS: diazePAM 5 MG TABLET PO SCH (05:56)
[2023-02-25] MEDS: ACETAMINOPHEN 325 MG TABLET (FP) PO PRN (17:23)
[2023-02-25] MEDS: METHOCARBAMOL 500 MG TABLET PO PRN (22:24)
[2023-02-26] MEDS: diazePAM 5 MG TABLET PO ONE (05:38)
[2023-02-26] MEDS: methaDONE HCL 10 MG TABLET (FOR DETOX USE ONLY) PO ONE (09:38)
[2023-02-26 12:50] VITALS: BP 129/79; PULSE 78; RESP 16; TEMP 96.8
== END 2023-02-26 15:35 | disposition home or self-care (01) | DRG 773 ==
LOC: YASAS 21:30 → Y3N 02-22 00:18
PROVIDERS: ADMIT Allergy & Immunology; ATTEND Surgery
PROC: HZ2ZZZZ Detoxification Services for Substance Abuse Treatment (ICD-10-PCS; principal; 2023-02-22)
DX: F11.23 Opioid dependence with withdrawal (principal); F10.230 Alcohol dependence with withdrawal, uncomplicated; F14.20 Cocaine dependence, uncomplicated; F17.210 Nicotine dependence, cigarettes, uncomplicated; F32.A Depression, unspecified; J45.909 Unspecified asthma, uncomplicated; G47.00 Insomnia, unspecified
CPT/HCPCS: 36415; 80053; 80307; 85027; 86780; 87635; 87811

== ENCOUNTER 2023-04-14 13:05 | Inpatient (IN) | payer OTHER ==
[2023-04-14 13:47] VITALS: BMI 21.0
[2023-04-14] MEDS ORDERED: IBUPROFEN 600 MG TABLET (FP) PO PRN (14:13)
[2023-04-14] MEDS ORDERED: BENZOCAINE/MENTHOL (CHLORASEPTIC ) LOZENGE MM PRN (14:13)
[2023-04-14] MEDS ORDERED: NALOXONE HCL 0.4 MG/ML VIAL IM PRN (14:13)
[2023-04-14] MEDS ORDERED: MAG HYDROX/AL HYDROX/SIMETH 30 ML UNIT-DOSE CUP PO PRN (14:13)
[2023-04-14] MEDS ORDERED: NALOXONE HCL (KLOXXADO) 8 MG SPRAY NS PRN (14:13)
[2023-04-14] MEDS ORDERED: ACETAMINOPHEN 325 MG TABLET (FP) PO PRN (14:13)
[2023-04-14] MEDS ORDERED: POLYETHYLENE GLYCOL (HEALTHYLAX) 3350 17 GM PACKET PO PRN (14:13)
[2023-04-14] MEDS ORDERED: ONDANSETRON *ODT* 4 MG TABLET SL PRN (14:13)
[2023-04-14] MEDS ORDERED: AMMONIUM LACTATE 12% LOTION 225 GM BOTTLE TP PRN (14:13)
[2023-04-14] MEDS ORDERED: IBUPROFEN 400 MG TABLET (FP) PO PRN (14:13)
[2023-04-14] MEDS ORDERED: DICYCLOMINE HCL 10 MG CAPSULE PO PRN (14:13)
[2023-04-14] MEDS ORDERED: guaiFENesin 600 MG TABLET.ER (FP) PO PRN (14:13)
[2023-04-14] MEDS ORDERED: MAGNESIUM HYDROX 2400MG/30ML ORAL SUSPENSION 30 ML CUP PO PRN (14:13)
[2023-04-14] MEDS ORDERED: BUPRENORPHINE HCL 150 MCG, BUPRENORPHINE HCL 75 MCG BC PRN (14:13)
[2023-04-14] MEDS ORDERED: BISMUTH SUBSALICYLATE 524 MG/30 ML PO PRN (14:13)
[2023-04-14] MEDS ORDERED: BENZONATATE 200 MG CAPSULE PO PRN (14:13)
[2023-04-14] MEDS ORDERED: LOPERAMIDE HCL 2 MG CAPSULE PO PRN (14:13)
[2023-04-14] MEDS ORDERED: ALBUTEROL SO4 HFA INHALER IH PRN (14:17)
[2023-04-14] MEDS ORDERED: METHYL SALICYLATE/MENTHOL OINT 30 GM TUBE TP PRN (14:27)
[2023-04-14] MEDS: BUPRENORPHINE HCL 150 MCG, BUPRENORPHINE HCL 75 MCG BC ONE (15:18)
[2023-04-14] MEDS: cloNIDine HCL 0.1 MG TABLET PO ONE (15:18)
[2023-04-14] MEDS ORDERED: cloNIDine HCL 0.1 MG TABLET ONE (15:23)
[2023-04-14] MEDS ORDERED: BUPRENORPHINE HCL 150 MCG FILM BC ONE (15:23)
[2023-04-14] MEDS ORDERED: BUPRENORPHINE HCL 75 MCG FILM BC ONE (15:24)
[2023-04-14] MEDS ORDERED: cloNIDine HCL 0.1 MG TABLET PO PRN (18:13)
[2023-04-14] MEDS: diazePAM 5 MG TABLET PO PRN (22:33)
[2023-04-14] MEDS: METHOCARBAMOL 500 MG TABLET PO PRN (22:34)
[2023-04-14] MEDS: THIAMINE HCL 100 MG TABLET (FP) PO SCH (22:34)
[2023-04-14] MEDS: MELATONIN 5 MG TABLETS PO SCH (22:34)
[2023-04-15] MEDS ORDERED: BUPRENORPHINE HCL 150 MCG, BUPRENORPHINE HCL 75 MCG BC PRN
[2023-04-15] MEDS: BUPRENORPHINE HCL 150 MCG, BUPRENORPHINE HCL 75 MCG BC SCH (05:41)
[2023-04-15] MEDS: PRENATAL VITAMINS W/ FOLIC ACID TABLET (FP) PO SCH (10:11)
[2023-04-15 13:31] LABS: CALCIUM 8.6 mg/dL (8.5-10.1)
[2023-04-15 13:33] LABS: HEMATOCRIT 41.1 % (35.4-49); HEMOGLOBIN 14.1 GM/dL (11.7-16.9); MCH 30.6 pg (25.7-33.7); MCHC 34.2 g/dl (32.0-35.9); MEAN CELL VOLUME 89.3 fl (80-96); MEAN PLT VOLUME 7.7 fl (7.5-11.1); PLATELET COUNT 286 10^3/uL (134-434); RDW 13.2 % (11.9-15.9); WHITE BLOOD COUNT 6.6 K/mm3 (4.0-10.0)
[2023-04-15 13:34] LABS: CREATININE 0.9 mg/dL (0.55-1.3)
[2023-04-15 13:36] LABS: BILIRUBIN,TOTAL 0.5 mg/dL (0.2-1)
[2023-04-16] MEDS: BUPRENORPHINE HCL 450 MCG FILM BC SCH (06:50)
[2023-04-16] MEDS: BUPRENORPHINE HCL 450 MCG FILM BC PRN (08:26)
[2023-04-16] MEDS: NICOTINE 21 MG/24 HOURS TOPICAL PATCH TD PRN (09:01)
[2023-04-16] MEDS: PNEUMOC 20-VAL CONJ-DIP CRM/PF 0.5 ML SYRINGE IM ONE (12:43)
[2023-04-16] MEDS: hydrOXYzine PAMOATE 25 MG CAPSULE (FP) PO PRN (13:43)
[2023-04-16] MEDS: diazePAM 5 MG TABLET PO PRN (15:40)
[2023-04-17] MEDS: BUPRENORPHINE/NALOXONE 4 MG/1 MG FILM PACKET SL SCH (05:36)
[2023-04-17] MEDS: GABAPENTIN 100 MG CAPSULE PO SCH (14:32)
[2023-04-17 16:45] VITALS: RESP 18
[2023-04-17] MEDS: traZODone HCL 50 MG TABLET (FP) PO SCH (21:24)
[2023-04-18] MEDS: BUPRENORPHINE/NALOXONE 8 MG/2 MG FILM PACKET SL ONE (05:33)
[2023-04-18 08:50] VITALS: BP 110/60; PULSE 81; TEMP 97.6
== END 2023-04-18 14:45 | disposition other institution (70) | DRG 773 ==
LOC: YASAS 13:05 → Y3N 15:10
PROVIDERS: ADMIT Allergy & Immunology; ATTEND Allergy & Immunology
PROC: HZ2ZZZZ Detoxification Services for Substance Abuse Treatment (ICD-10-PCS; principal; 2023-04-14)
DX: F11.23 Opioid dependence with withdrawal (principal); F10.230 Alcohol dependence with withdrawal, uncomplicated; F14.20 Cocaine dependence, uncomplicated; F12.20 Cannabis dependence, uncomplicated; F17.210 Nicotine dependence, cigarettes, uncomplicated; F19.280 Other psychoactive substance dependence with psychoactive substance-induced anxiety disorder; F19.24 Other psychoactive substance dependence with psychoactive substance-induced mood disorder; F41.9 Anxiety disorder, unspecified; F32.A Depression, unspecified; G47.00 Insomnia, unspecified; M79.604 Pain in right leg; G89.29 Other chronic pain
CPT/HCPCS: 36415; 80053; 80305; 85027; 86780; 87635; 90677; 93005; 93010

== ENCOUNTER 2023-09-25 12:52 | Inpatient (IN) | payer OTHER ==
[2023-09-25 13:54] VITALS: BMI 22.1
[2023-09-25] MEDS ORDERED: IBUPROFEN 600 MG TABLET (FP) PO PRN (15:47)
[2023-09-25] MEDS ORDERED: NALOXONE (NARCAN) HCL 4 MG/0.1 ML SPRAY NS PRN (15:47)
[2023-09-25] MEDS ORDERED: ACETAMINOPHEN 325 MG TABLET (FP) PO PRN (15:47)
[2023-09-25] MEDS ORDERED: BENZONATATE 200 MG CAPSULE PO PRN (15:47)
[2023-09-25] MEDS ORDERED: guaiFENesin 600 MG TABLET.ER (FP) PO PRN (15:47)
[2023-09-25] MEDS ORDERED: POLYETHYLENE GLYCOL (HEALTHYLAX) 3350 17 GM PACKET PO PRN (15:47)
[2023-09-25] MEDS ORDERED: IBUPROFEN 400 MG TABLET (FP) PO PRN (15:47)
[2023-09-25] MEDS ORDERED: BENZOCAINE/MENTHOL (CHLORASEPTIC ) LOZENGE MM PRN (15:47)
[2023-09-25] MEDS ORDERED: MAG HYDROX/AL HYDROX/SIMETH 30 ML UNIT-DOSE CUP PO PRN (15:47)
[2023-09-25] MEDS ORDERED: NALOXONE HCL 0.4 MG/ML VIAL IM PRN (15:47)
[2023-09-25] MEDS ORDERED: LOPERAMIDE HCL 2 MG CAPSULE PO PRN (15:47)
[2023-09-25] MEDS ORDERED: MAGNESIUM HYDROX 2400MG/30ML ORAL SUSPENSION 30 ML CUP PO PRN (15:47)
[2023-09-25] MEDS ORDERED: ALBUTEROL SO4 HFA INHALER IH PRN (15:50)
[2023-09-25] MEDS ORDERED: TUBERCULIN PPD 5 TU/0.1ML VIAL ID ONE (17:26)
[2023-09-25] MEDS: hydrOXYzine PAMOATE 25 MG CAPSULE (FP) PO PRN (18:21)
[2023-09-25] MEDS: TUBERCULIN PPD 5 TU/0.1ML SYRINGE (IN PATIENT USE ONLY) ID ONE (19:07)
[2023-09-25] MEDS: MELATONIN 5 MG TABLETS PO SCH (21:29)
[2023-09-25] MEDS: THIAMINE 100 MG TABLET PO SCH (21:29)
[2023-09-26 00:30] LABS: URINE APPEARANCE CLEAR; URINE BILIRUBIN NEGATIVE (NEGATIVE); URINE COLOR YELLOW; URINE GLUCOSE (UA) NEGATIVE (NEGATIVE); URINE KETONE NEGATIVE (NEGATIVE); URINE LEUK ESTERASE NEGATIVE (NEGATIVE); URINE NITRITE NEGATIVE (NEGATIVE); URINE PROTEIN NEGATIVE (NEGATIVE); URINE UROBILINOGEN 0.2 mg/dL (0.2-1.0)
[2023-09-26] MEDS: PRENATAL VITAMINS W/ FOLIC ACID TABLET (FP) PO SCH (09:58)
[2023-09-26] MEDS: NICOTINE 21 MG/24 HOURS TOPICAL PATCH TD SCH (09:58)
[2023-09-26 11:49] LABS: HEMATOCRIT 41.1 % (35.4-49); HEMOGLOBIN 13.9 GM/dL (11.7-16.9); MCHC 33.9 g/dl (32.0-35.9); MEAN CELL VOLUME 85.6 fl (80-96); MEAN PLT VOLUME 7.4 fl (7.5-11.1); PLATELET COUNT 327 10^3/uL (134-434); RBC 4.79 M/mm3 (4.00-5.60); RDW 14.7 % (11.9-15.9); WHITE BLOOD COUNT 5.9 K/mm3 (4.0-10.0)
[2023-09-26 11:50] LABS: CHLORIDE 103 mmol/L (98-107); POTASSIUM 4.5 mmol/L (3.5-5.1); SODIUM 136 mmol/L (136-145)
[2023-09-26 11:54] LABS: ALBUMIN 3.5 g/dl (3.4-5.0); ANION GAP 6 mmol/L (4-13); BLOOD UREA NITROGEN 14.5 mg/dL (7-18); CALCIUM 9.4 mg/dL (8.5-10.1); CO2 27 mmol/L (21-32); GLUCOSE,RANDOM 89 mg/dL (74-106)
[2023-09-26 11:57] LABS: CREATININE 0.8 mg/dL (0.55-1.3); SGOT/AST 12 U/L (15-37); SGPT/ALT 24 U/L (13-61)
[2023-09-26 11:59] LABS: BILIRUBIN,TOTAL 0.3 mg/dL (0.2-1); TOT PROT 6.6 g/dl (6.4-8.2)
[2023-09-26 12:00] LABS: ALK PHOS 100 U/L (45-117)
[2023-09-26] MEDS: cloNIDine HCL 0.1 MG TABLET PO PRN (14:16)
[2023-09-26] MEDS: hydrOXYzine PAMOATE 25 MG CAPSULE (FP) PO PRN (16:33)
[2023-09-27] MEDS: NICOTINE POLACRILEX 2 MG GUM BUC PRN (13:07)
[2023-09-28] MEDS: MELATONIN 5 MG TABLETS PO ONE (23:57)
[2023-09-29 07:33] VITALS: RESP 17
[2023-09-29] MEDS: hydrOXYzine PAMOATE 25 MG CAPSULE (FP) PO PRN (12:49)
[2023-09-29] MEDS: METHOCARBAMOL 500 MG TABLET PO PRN (15:47)
[2023-10-01 07:59] VITALS: BP 113/84; PULSE 101; TEMP 97.5
== END 2023-10-01 09:33 | disposition left against medical advice (07) | DRG 770 ==
LOC: YASAS 12:52 → Y3E 16:38
PROVIDERS: ADMIT Allergy & Immunology; ATTEND Psychiatry & Neurology Pain Medicine
PROC: HZ42ZZZ Group Counseling for Substance Abuse Treatment, Cognitive-Behavioral (ICD-10-PCS; principal; 2023-09-25)
DX: F11.20 Opioid dependence, uncomplicated (principal); F10.20 Alcohol dependence, uncomplicated; F14.20 Cocaine dependence, uncomplicated; F12.20 Cannabis dependence, uncomplicated; F17.210 Nicotine dependence, cigarettes, uncomplicated; F19.980 Other psychoactive substance use, unspecified with psychoactive substance-induced anxiety disorder; J45.909 Unspecified asthma, uncomplicated; Z56.0 Unemployment, unspecified; Z59.00 Homelessness unspecified
CPT/HCPCS: 36415; 80053; 80305; 80307; 81003; 85027; 86780; 87811; 93005; 93010

== ENCOUNTER 2024-02-13 17:33 | Inpatient (IN) | payer OTHER ==
[2024-02-13 17:59] VITALS: BMI 21.8
[2024-02-13] MEDS ORDERED: ALBUTEROL SO4 HFA INHALER IH PRN (18:06)
[2024-02-13] MEDS ORDERED: POLYETHYLENE GLYCOL (HEALTHYLAX) 3350 17 GM PACKET PO PRN (18:20)
[2024-02-13] MEDS ORDERED: P-EPHED 60MG/TRIPROLIDI 2.5MG TABLET PO PRN (18:20)
[2024-02-13] MEDS ORDERED: guaiFENesin 600 MG TABLET.ER (FP) PO PRN (18:20)
[2024-02-13] MEDS ORDERED: IBUPROFEN 400 MG TABLET (FP) PO PRN (18:20)
[2024-02-13] MEDS ORDERED: NALOXONE (NARCAN) HCL 4 MG/0.1 ML SPRAY NS PRN (18:20)
[2024-02-13] MEDS ORDERED: ACETAMINOPHEN 325 MG TABLET (FP) PO PRN (18:20)
[2024-02-13] MEDS ORDERED: IBUPROFEN 600 MG TABLET (FP) PO PRN (18:20)
[2024-02-13] MEDS ORDERED: LOPERAMIDE HCL 2 MG CAPSULE PO PRN (18:20)
[2024-02-13] MEDS ORDERED: MAG HYDROX/AL HYDROX/SIMETH 30 ML UNIT-DOSE CUP PO PRN (18:20)
[2024-02-13] MEDS ORDERED: BISMUTH SUBSALICYLATE 524 MG/30 ML PO PRN (18:20)
[2024-02-13] MEDS ORDERED: DICYCLOMINE HCL 10 MG CAPSULE PO PRN (18:20)
[2024-02-13] MEDS ORDERED: ONDANSETRON *ODT* 4 MG TABLET SL PRN (18:20)
[2024-02-13] MEDS ORDERED: BENZONATATE 200 MG CAPSULE PO PRN (18:20)
[2024-02-13] MEDS ORDERED: MAGNESIUM HYDROX 2400MG/30ML ORAL SUSPENSION 30 ML CUP PO PRN (18:20)
[2024-02-13] MEDS ORDERED: BENZOCAINE/MENTHOL (CHLORASEPTIC ) LOZENGE MM PRN (18:20)
[2024-02-13] MEDS ORDERED: methaDONE HCL 10 MG TABLET (FOR DETOX USE ONLY) PO PRN (18:22)
[2024-02-13] MEDS: THIAMINE 100 MG TABLET PO SCH (22:53)
[2024-02-13] MEDS: MELATONIN 5 MG TABLETS PO SCH (22:53)
[2024-02-13] MEDS: cloNIDine HCL 0.1 MG TABLET PO PRN (22:53)
[2024-02-13] MEDS: METHOCARBAMOL 500 MG TABLET PO PRN (22:55)
[2024-02-14] MEDS: methaDONE HCL 10 MG TABLET (FOR DETOX USE ONLY) PO ONE (10:16)
[2024-02-14] MEDS: PRENATAL VITAMINS W/ FOLIC ACID TABLET (FP) PO SCH (10:18)
[2024-02-14 11:08] LABS: HEMATOCRIT 39.1 % (35.4-49); HEMOGLOBIN 12.6 GM/dL (11.7-16.9); MCH 29.2 pg (25.7-33.7); MCHC 32.3 g/dl (32.0-35.9); MEAN CELL VOLUME 90.4 fl (80-96); MEAN PLT VOLUME 7.5 fl (7.5-11.1); PLATELET COUNT 265 10^3/uL (134-434); RBC 4.32 M/mm3 (4.00-5.60); RDW 13.2 % (11.9-15.9); WHITE BLOOD COUNT 5.7 K/mm3 (4.0-10.0)
[2024-02-14 11:14] LABS: POTASSIUM 4.3 mmol/L (3.5-5.1)
[2024-02-14 11:28] LABS: BLOOD UREA NITROGEN 16.7 mg/dL (7-18); CREATININE 0.9 mg/dL (0.55-1.3)
[2024-02-14 11:29] LABS: BILIRUBIN,TOTAL 0.4 mg/dL (0.2-1); CALCIUM 8.8 mg/dL (8.5-10.1); TOT PROT 5.8 g/dl (6.4-8.2)
[2024-02-14] MEDS: diazePAM 5 MG TABLET PO PRN (15:55)
[2024-02-15] MEDS: NICOTINE POLACRILEX 2 MG GUM BUC PRN (10:14)
[2024-02-16] MEDS: methaDONE HCL 10 MG TABLET (FOR DETOX USE ONLY) PO ONE (10:51)
[2024-02-16] MEDS: METHOCARBAMOL 500 MG TABLET PO PRN (12:20)
[2024-02-16] MEDS: hydrOXYzine PAMOATE 50 MG CAPSULE (FP) PO PRN (12:21)
[2024-02-16] MEDS: NICOTINE POLACRILEX 2 MG LOZENGE BC PRN (15:31)
[2024-02-18 08:40] VITALS: BP 122/82; PULSE 76; RESP 18; TEMP 98.6
[2024-02-18] MEDS: methaDONE HCL 10 MG TABLET (FOR DETOX USE ONLY) PO ONE (09:10)
[2024-02-18] MEDS: NALOXONE (NYS OPIOID OVERDOSE PROGRAM) 4 MG/0.1 ML SPRAY NS SCH ×2 (12:04→12:39)
== END 2024-02-18 12:40 | disposition home or self-care (01) | DRG 773 ==
LOC: YASAS 17:33 → Y6N 19:27
PROVIDERS: ADMIT Allergy & Immunology; ATTEND Surgery
PROC: HZ2ZZZZ Detoxification Services for Substance Abuse Treatment (ICD-10-PCS; principal; 2024-02-14)
DX: F11.23 Opioid dependence with withdrawal (principal); F17.210 Nicotine dependence, cigarettes, uncomplicated; J45.909 Unspecified asthma, uncomplicated
CPT/HCPCS: 36415; 80053; 85027; 86780; 93005; 93010

== ENCOUNTER 2024-04-26 11:40 | Inpatient (IN) | payer OTHER ==
[2024-04-26] MEDS ORDERED: ALBUTEROL SO4 HFA INHALER IH PRN (12:24)
[2024-04-26] MEDS ORDERED: BENZONATATE 200 MG CAPSULE PO PRN (12:24)
[2024-04-26] MEDS ORDERED: LOPERAMIDE HCL 2 MG CAPSULE PO PRN (12:24)
[2024-04-26] MEDS ORDERED: POLYETHYLENE GLYCOL (HEALTHYLAX) 3350 17 GM PACKET PO PRN (12:24)
[2024-04-26] MEDS ORDERED: MAG HYDROX/AL HYDROX/SIMETH 30 ML UNIT-DOSE CUP PO PRN (12:24)
[2024-04-26] MEDS ORDERED: MAGNESIUM HYDROX 2400MG/30ML ORAL SUSPENSION 30 ML CUP PO PRN (12:24)
[2024-04-26] MEDS ORDERED: NALOXONE HCL 0.4 MG/ML VIAL IVPUSH PRN (12:24)
[2024-04-26] MEDS ORDERED: BENZOCAINE/MENTHOL (CHLORASEPTIC ) LOZENGE MM PRN (12:24)
[2024-04-26] MEDS ORDERED: guaiFENesin 600 MG TABLET.ER (FP) PO PRN (12:24)
[2024-04-26] MEDS ORDERED: ACETAMINOPHEN 325 MG TABLET (FP) PO PRN (12:24)
[2024-04-26] MEDS ORDERED: NALOXONE (NARCAN) HCL 4 MG/0.1 ML SPRAY NS PRN (12:24)
[2024-04-26] MEDS: METHOCARBAMOL 500 MG TABLET PO PRN (12:56)
[2024-04-26] MEDS: GABAPENTIN 100 MG CAPSULE PO SCH (13:27)
[2024-04-26] MEDS: hydrOXYzine PAMOATE 25 MG CAPSULE (FP) PO PRN (15:45)
[2024-04-26] MEDS: IBUPROFEN 600 MG TABLET (FP) PO PRN (20:31)
[2024-04-26] MEDS: MELATONIN 5 MG TABLETS PO SCH (21:36)
[2024-04-26] MEDS: THIAMINE 100 MG TABLET PO SCH (21:36)
[2024-04-26] MEDS: BUPRENORPHINE/NALOXONE 8 MG/2 MG FILM PACKET SL SCH (21:38)
[2024-04-27] MEDS: PRENATAL VITAMINS W/ FOLIC ACID TABLET (FP) PO SCH (09:03)
[2024-04-27 11:35] LABS: HIV INTERPRETATION NEGATIVE (NEGATIVE)
[2024-04-27] MEDS: NICOTINE POLACRILEX 2 MG GUM BUC PRN (13:54)
[2024-04-27] MEDS: NICOTINE 14 MG/24 HOURS TOPICAL PATCH TD SCH (13:56)
[2024-04-29] MEDS: IBUPROFEN 400 MG TABLET (FP) PO PRN (17:35)
[2024-04-30] MEDS: hydrOXYzine PAMOATE 50 MG CAPSULE (FP) PO PRN (19:03)
[2024-04-30] MEDS: busPIRone HCL 5 MG TABLET PO SCH (23:33)
[2024-05-01 06:39] VITALS: TEMP 97.8
[2024-05-02 07:01] VITALS: BP 132/83; PULSE 94; RESP 17
[2024-05-03] MEDS ORDERED: BUPRENORPHINE/NALOXONE 8 MG/2 MG FILM PACKET SL SCH (10:00)
== END 2024-05-02 11:34 | disposition left against medical advice (07) | DRG 772 ==
LOC: YASAS 11:40 → Y3E 11:41
PROVIDERS: ADMIT Psychiatry & Neurology Pain Medicine; ATTEND Psychiatry & Neurology Pain Medicine
PROC: HZ42ZZZ Group Counseling for Substance Abuse Treatment, Cognitive-Behavioral (ICD-10-PCS; principal; 2024-04-26)
DX: F11.20 Opioid dependence, uncomplicated (principal); F10.20 Alcohol dependence, uncomplicated; F17.210 Nicotine dependence, cigarettes, uncomplicated; F31.9 Bipolar disorder, unspecified; F19.280 Other psychoactive substance dependence with psychoactive substance-induced anxiety disorder; F19.24 Other psychoactive substance dependence with psychoactive substance-induced mood disorder; G47.00 Insomnia, unspecified; J45.909 Unspecified asthma, uncomplicated; R63.4 Abnormal weight loss; Z68.1 Body mass index [BMI] 19.9 or less, adult; F91.8 Other conduct disorders; Z91.199 Patient's noncompliance with other medical treatment and regimen due to unspecified reason; Z56.0 Unemployment, unspecified; Z59.00 Homelessness unspecified
CPT/HCPCS: 36415; 82962; 86803; 87389